=== PATIENT | female | born 1945 | race Caucasian/White ===

== ENCOUNTER 2021-08-04 10:09 | Inpatient (IN) | payer MEDICARE, MEDICAID ==
[2021-08-04] MEDS ORDERED: Calcium Carbonate 500 MG Tab.Chew PO PRN (12:53)
[2021-08-04] MEDS ORDERED: Bisacodyl 5 MG Tab PO PRN (12:53)
--- NOTE | 2021-08-04 13:15 | PCM.HP.2 ---
H&P History of Present Illness - General Date of Service: 08/04/21 Admit Problem/Dx: Admission Diagnosis/Problem Admission Diagnosis/Problem Bimalleolar fracture of right ankle Source of Information: Patient, Old Records History Limitations: Reports: Other (Is absent her hearing aid) - History of Present Illness Initial Comments - Free Text/Narative: Pt. was transferred to [facility] via wheel chair van for swingbed admission. Pt. underwent ORIF of R bimalleolar fracture to R ankle. Pt. became lightheaded/near syncopal at home in [place], [place] and fell, injuring her ankle. She was actually seen by this provider when the ambulance transported her to [facility] in [place]. Fracture was stabilized and she was transferred to [facility]. Pt. did have a CT scan of the head during her ER stay which was negative. All labs were within normal limits, but she was found to have a UTI. Initially pt. was started on IV rocephin in ER. She was transitions to Ceftin and then was on post of ancef. She has finished her full course of antibiotics at this time. Pt. is non-weight bearing on the R lower extremity. Scheduled for recheck with [facility] in 2 weeks with PA and 6 weeks with physician. Overall, pt. states that she is feeling well. Denies any fever or chills. No chest pain or shortness of breath. No nausea, vomiting, or diarrhea. She is passing gas. Appetite has been within normal limits. Pain is controlled with oral oxycodone, but she does complain of continued R lower extremity pain, as well as acute on chronic low back pain. Location: Reports: Lower Extremity, Right - Related Data Allergies/Adverse Reactions: Allergies Allergy/AdvReac Type Severity Reaction Status Date / Time No Known Allergies Allergy Verified 08/04/21 12:53 Home Medications: Home Meds Acetaminophen [Tylenol] 650 mg PO Q6HR 08/04/21 [History] Calcium Carb, Citrate/Vit D3 [Calcium + D3 ER Tablet] 1 each PO TID 08/04/21 [History] Calcium Citrate/Vitamin D3 [Calcium Citrate - Vit D Caplet] 1 each PO BID 08/04/21 [History] Cholecalciferol (Vitamin D3) [Vitamin D3] 1,000 unit PO DAILY 08/04/21 [History] Divalproex Sodium [Divalproex Sodium ER] 500 mg PO BEDTIME 08/04/21 [History] Enoxaparin Sodium [Lovenox] 40 mg SQ BEDTIME 08/04/21 [History] Levothyroxine Sodium 137 mcg PO ACBREAKFAST 08/04/21 [History] Multivit with Iron,Minerals [Complete Senior] 1 each PO DAILY 08/04/21 [History] Sennosides/Docusate Sodium [Senna-Docusate Sodium Tablet] 1 each PO DAILY PRN 08/04/21 [History] cloZAPine [Clozaril] 200 mg PO BEDTIME 08/04/21 [History] hydrOXYzine pamoate [Vistaril] 25 mg PO Q6HR PRN 08/04/21 [History] oxyCODONE 5 mg PO Q6HR PRN 08/04/21 [History] H&P Review of Systems - Review of Systems: Review Of Systems: See Below General: Reports: No Symptoms HEENT: Reports: No Symptoms Pulmonary: Reports: No Symptoms Cardiovascular: Reports: No Symptoms Gastrointestinal: Reports: No Symptoms Genitourinary: Reports: No Symptoms Musculoskeletal: Reports: Back Pain, Leg Pain Skin: Reports: No Symptoms Psychiatric: Reports: No Symptoms Neurological: Reports: No Symptoms Hematologic/Lymphatic: Reports: No Symptoms Immunologic: Reports: No Symptoms Exam - Exam Exam: See Below - Exam General: Alert, Oriented HEENT: Conjunctiva Clear, Pupils Equal, Pupils Reactive, PERRLA Lungs: Clear to Auscultation, Normal Respiratory Effort Cardiovascular: Regular Rate, Regular Rhythm GI/Abdominal Exam: Soft, Non-Tender, No Distention, No Mass (Female) Exam: Deferred Rectal (Female) Exam: Deferred Back Exam: Normal Inspection, Full Range of Motion Extremities: Other (Did not visualize incision. Distal CMS intact. No duskiness to toes.) Peripheral Pulses: 4+: Radial (L) Skin: Warm, Dry, Intact Neurological: Cranial Nerves Intact Neuro Extensive - Mental Status: Alert, Oriented x3, Normal Mood/Affect, Normal Cognition, Memory Intact Neuro Extensive - Motor, Sensory, Reflexes: CN II-XII Intact Psychiatric: Alert, Normal Affect, Normal Mood - Problem List (1) Bimalleolar avulsion fracture of right ankle SNOMED Code(s): 809090270, 868769122, [id number] ICD Code: S82.841A - DISPLACED BIMALLEOLAR FRACTURE OF RIGHT LOWER LEG, INIT Status: Acute Current Visit: Yes (2) Schizoaffective disorder SNOMED Code(s): 34884315 ICD Code: F25.9 - SCHIZOAFFECTIVE DISORDER, UNSPECIFIED Status: Acute Current Visit: Yes (3) Stage 3 chronic kidney disease SNOMED Code(s): 431596266 ICD Code: N18.30 - CHRONIC KIDNEY DISEASE, STAGE 3 UNSPECIFIED Status: Acute Current Visit: Yes (4) DVT prophylaxis SNOMED Code(s): 388260509, 039020599 ICD Code: Z29.9 - ENCOUNTER FOR PROPHYLACTIC MEASURES, UNSPECIFIED Status: Acute Current Visit: Yes Problem List Initiated/Reviewed/Updated: Yes Orders Last 24hrs: Active Orders 24 hr Category Date Time Status Patient Status [ADT] Routine ADT 08/04/21 12:54 Ordered Ambulate [RC] PER UNIT ROUTINE Care 08/04/21 12:53 Ordered Bedrest Bathroom Privileges [RC] ASDIRECTED Care 08/04/21 12:53 Ordered Intake and Output [RC] PRN Care 08/04/21 12:53 Ordered Oxygen Therapy [RC] PRN Care 08/04/21 12:54 Ordered Up With Assistance [RC] ASDIRECTED Care 08/04/21 12:53 Ordered Up to Chair [RC] ASDIRECTED Care 08/04/21 12:53 Ordered Vital Signs [RC] PER UNIT ROUTINE Care 08/04/21 12:54 Ordered Consult to Case Management/Product Engineer [CONS] Cons 08/04/21 12:53 Ordered Routine Consult to Spiritual Care [CONS] Routine Cons 08/04/21 12:53 Ordered OT Evaluation and Treatment [CONS] Stat Cons 08/04/21 12:53 Ordered PT Evaluation and Treatment [CONS] Stat Cons 08/04/21 12:53 Ordered Regular Diet [DIET] Diet 08/04/21 Dinner Ordered Calcium Carbonate [Tums] Med 08/04/21 12:53 Ordered 500 mg PO Q2HR PRN Ondansetron [Zofran ODT] Med 08/04/21 12:53 Ordered 4 mg PO Q6H PRN bisacodyL [Dulcolax] Med 08/04/21 12:53 Ordered 5 mg PO DAILY PRN polyethylene glycoL 3350 [MiraLAX] Med 08/04/21 12:53 Ordered 17 gm PO DAILY PRN Resuscitation Status Routine Resus Stat 08/04/21 12:53 Ordered Medication Orders Bisacodyl (Bisacodyl 5 Mg Tab) 5 mg PO DAILY PRN PRN Reason: Constipation Calcium Carbonate/Glycine (Calcium Carbonate 500 Mg Tab.Chew) 500 mg PO Q2HR PRN PRN Reason: Nausea Ondansetron HCl (Ondansetron 4 Mg Tab.Dis) 4 mg PO Q6H PRN PRN Reason: Nausea/Vomiting Assessment/Plan Comment:: Admit swing bed (retirement) code 1. Pivot to bedside commode. Up with walker with assistance. PT/OT to see for strengthening/discharge planning. CBC,CMP,INR tomorrow AM (last labs 08/01). Pt. did have a mild DARLENE during this incident/illness and this will need to me monitored. No NSAIDs. Continue with SQ lovenox for 14 days. Continue olanzapine and Depakote ER for schizoaffective disorder. Continue oxycodone for pain control. - Mortality Measure Prognosis:: Good
[2021-08-04] MEDS ORDERED: hydrOXYzine Pamoate 25 MG Cap PO PRN (14:00)
[2021-08-04] MEDS ORDERED: Ondansetron 4 MG Tab.DIS PO PRN (14:00)
[2021-08-04] MEDS: oxyCODONE 5 MG Tab PO PRN (14:55)
[2021-08-04] MEDS: Acetaminophen 325 MG Tab PO SCH ×2 (15:53→19:47)
[2021-08-04] MEDS ORDERED: Acetaminophen 325 MG Tab PO SCH (16:00)
[2021-08-04] MEDS ORDERED: CALCIUM CARB CITRATE PO SCH (18:00)
[2021-08-04] MEDS ORDERED: VIT D3 PO SCH (18:00)
[2021-08-04] MEDS ORDERED: [UNRECOGNIZED DRUG - OTHER] PO SCH (18:00)
[2021-08-04] MEDS ORDERED: Calcium Carbonate/Vitamin D3 1500 MG-400 Units Tab PO SCH (18:00)
[2021-08-04] MEDS: Calcium Carbonate/Vitamin D3 1500 MG-400 Units Tab PO SCH (19:46)
[2021-08-04] MEDS: Divalproex Sodium 250 MG Tab.ER PO SCH (19:46)
[2021-08-04] MEDS: Enoxaparin 40 MG/0.4 ML Syringe SUBCUT SCH (19:46)
[2021-08-05] MEDS: oxyCODONE 5 MG Tab PO PRN ×2 (02:07→08:34)
[2021-08-05] MEDS ORDERED: Non-Formulary Medication 1 Each (Levothyroxine Sodium [Levothyroxine Sodium] 137 MCG Table PO SCH (07:30)
[2021-08-05] MEDS: Calcium Carbonate/Vitamin D3 1500 MG-400 Units Tab PO SCH ×2 (07:53→19:16)
[2021-08-05] MEDS: Cholecalciferol (Vitamin D3) 25 MCG Tab PO SCH (07:53)
[2021-08-05] MEDS: Multivitamin Tab PO SCH (07:53)
[2021-08-05] MEDS: Levothyroxine 112 MCG Tab PO SCH (07:54)
[2021-08-05] MEDS: Levothyroxine 25 MCG Tab PO SCH (07:54)
[2021-08-05] MEDS: Acetaminophen 325 MG Tab PO SCH (07:54)
[2021-08-05] MEDS: Polyethylene Glycol 3350 Powder 17 GM Packet PO PRN (08:28)
[2021-08-05] MEDS: Magnesium Hydroxide 400 MG/5 ML Susp 30 ML Cup PO PRN (15:11)
[2021-08-05] MEDS ORDERED: Bisacodyl 10 MG Supp RECTAL PRN (15:26)
[2021-08-05] MEDS: Divalproex Sodium 250 MG Tab.ER PO SCH (19:16)
[2021-08-05] MEDS: Enoxaparin 40 MG/0.4 ML Syringe SUBCUT SCH (19:17)
[2021-08-05] MEDS: Acetaminophen/Codeine 300-30 MG Tab PO PRN (19:22)
[2021-08-06] MEDS: Calcium Carbonate/Vitamin D3 1500 MG-400 Units Tab PO SCH ×2 (08:30→19:32)
[2021-08-06] MEDS: Levothyroxine 25 MCG Tab PO SCH (08:30)
[2021-08-06] MEDS: Levothyroxine 112 MCG Tab PO SCH (08:30)
[2021-08-06] MEDS: Cholecalciferol (Vitamin D3) 25 MCG Tab PO SCH (08:31)
[2021-08-06] MEDS: Multivitamin Tab PO SCH (08:31)
[2021-08-06] MEDS: Acetaminophen/Codeine 300-30 MG Tab PO PRN ×2 (13:52→19:32)
[2021-08-06] MEDS: Enoxaparin 40 MG/0.4 ML Syringe SUBCUT SCH (19:32)
[2021-08-06] MEDS: Divalproex Sodium 250 MG Tab.ER PO SCH (19:33)
[2021-08-06] MEDS: Magnesium Hydroxide 400 MG/5 ML Susp 30 ML Cup PO PRN (19:33)
[2021-08-07] MEDS: Acetaminophen/Codeine 300-30 MG Tab PO PRN (02:02)
[2021-08-07] MEDS: Multivitamin Tab PO SCH (07:22)
[2021-08-07] MEDS: Acetaminophen 325 MG Tab PO PRN ×2 (07:22→19:28)
[2021-08-07] MEDS: Cholecalciferol (Vitamin D3) 25 MCG Tab PO SCH (07:23)
[2021-08-07] MEDS: Levothyroxine 25 MCG Tab PO SCH (07:23)
[2021-08-07] MEDS: Calcium Carbonate/Vitamin D3 1500 MG-400 Units Tab PO SCH ×2 (07:23→19:27)
[2021-08-07] MEDS: Levothyroxine 112 MCG Tab PO SCH (07:23)
[2021-08-07] MEDS: Divalproex Sodium 250 MG Tab.ER PO SCH (19:27)
[2021-08-07] MEDS: Enoxaparin 40 MG/0.4 ML Syringe SUBCUT SCH (19:27)
[2021-08-08] MEDS: Levothyroxine 112 MCG Tab PO SCH (07:50)
[2021-08-08] MEDS: Levothyroxine 25 MCG Tab PO SCH (07:51)
[2021-08-08] MEDS: Calcium Carbonate/Vitamin D3 1500 MG-400 Units Tab PO SCH ×2 (07:52→19:43)
[2021-08-08] MEDS: Multivitamin Tab PO SCH (07:53)
[2021-08-08] MEDS: Cholecalciferol (Vitamin D3) 25 MCG Tab PO SCH (07:53)
[2021-08-08] MEDS: Acetaminophen 325 MG Tab PO PRN ×2 (09:20→16:53)
--- OUTSIDE RECORDS SUMMARY | 2021-08-08 16:17 | XMSREPORT ---
:1945 Author Organization [facility] and [facility] s Address [address] [place] [address] Care Team Providers Name Role Phone SARA Calderon Primary Care Provider SARA Calderon Attributed Provider Reason for Visit Reason Comments Ankle Injury Pt presents to ED from [facility] via EMS to have right ankle fracture evaluated by an orthopoedic surgeon. Pt fell at home around 1230 trasferring in [facility]. Pt h as a current UTI and is receiving abx tx, this may have caused the fal l. Numbness Pt also complains of left le g numbness after fall today. Auth/Cert Status Reason Specialty Diagnoses / Procedures Referred By Villa biswas Referred To Contact Encounter Details Date Type Department Care Team Description 07/31/2021 - Hospital Encounter [facility] Department [address] [place] [address] [phone] Closed bimalleolar 08/04/2021 [facility] Dylan Gaspar MD [address] [place] [address] [phone] fracture of right [address] Lorne Welch MD [address] [place] [address] [phone] [place] [address] Zelda Cabrera MD [address] [place] [id number] [phone] healing [phone] Allergies No Known Active Allergiesdocumented as of this encounter (statuses as of 08/04/2021) Medications Medication Sig Dispensed Refills Start End Status Date Date Multiple Take 1 tablet by 0 Act violeta Vitamins-Iron mouth 1 time per (DAILY day. VITAMINS/IRON PO) senna-docusate Take 1 tablet by 0 Active sodium mouth 1 time a (SENOKOT-S;PERICOLA day as needed for CE) 8.6-50 MG constipation tablet Calcium Take 1 tablet by 0 Act violeta Carb-Cholecalcifero mouth 3 times a l (CALCIUM EXTRA D3 day PO) levothyroxine 137 Take 1 tablet 90 tablet 3 02/12/20 Active mcg (137 mcg) by 022 tabletIndications: mouth 1 time per Post-surgical day hypothyroidism cloZAPine Take 2 tablets 180 tablet 1 03/11/20 Acti ve (CLOZARIL) 100 mg (200 mg) by mouth 022 tabletIndications: every night at Schizoaffective bedtime disorder, bipolar type (HCC) divalproex Take 1 tablet 90 tablet 1 03/11/20 Activ e (DEPAKOTE ER) 500 (500 mg) by mouth 21 mg extended release every night at tablet (24 bedtime hr)Indications: Schizoaffective disorder, bipolar type (HCC) vitamin D3, Take 1 tablet 30 tablet 0 08/02/20 Acti ve cholecalciferol, 25 (1,000 Units) by 21 mcg (1000 unit) mouth 1 time per tabletIndications: day Closed bimalleolar fracture of right ankle with routine healing calcium Take 1 tablet by 0 08/02/20 Act violeta citrate-vitamin D mouth 2 times a 21 (CITRACAL + VIT D) day with meals 315 mg-250 unit tabletIndications: Closed bimalleolar fracture of right ankle with routine healing acetaminophen Take 2 tablets 100 tablet 0 08/04/20 Active (TYLENOL) 325 mg (650 mg) by mouth 21 tabletIndications: Every 6 hours Closed bimalleolar fracture of right ankle, initial encounter hydrOXYzine pamoate Take 1 capsule 12 capsule 0 08/04/20 10/0 5/2 Active (VISTARIL) 25 mg (25 mg) by mouth capsuleIndications: every 6 hours as Anxiety needed for anxiety or pain in adjunction with oxycodone enoxaparin Inject 40 mg 0 08/02/20 Active (LOVENOX) 40 mg subcutaneously syringe (100 mg/mL) every night at subcutaneous bedtime for 14 injection days solutionIndications : DVT prophylaxis oxyCODONE (OXY-IR) Take 1 tablet (5 12 tablet 0 08/04/2001/04 Active 5 mg tablet mg) by mouth (immediate every 6 hours as release)Indications needed for severe : Closed pain or bimalleolar breakthrough pain fracture of right ankle, initial encounter cloZAPine Take 2 tablets 56 tablet 1 01/13/20 Disco ntinued (CLOZARIL) 100 mg (200 mg) by mouth (entry level software developer tabletIndications: 1 time per day error) Schizoaffective disorder, bipolar type (HCC) oxyCODONE (OXY-IR) Take 1 tablet (5 12 tablet 0 08/04/2007/08 0/2 Discontinued 5 mg tablet mg) by mouth (immediate every 6 hours as release)Indications needed for severe : Closed pain or bimalleolar breakthrough pain fracture of right (for pain rated ankle, initial 4-6) for up to 3 encounter days oxyCODONE (OXY-IR) Take 1 tablet (5 12 tablet 0 08/04/20/3 0/2 Discontinued 5 mg tablet mg) by mouth (immediate every 6 hours as release)Indications needed for severe : Closed pain or bimalleolar breakthrough pain fracture of right (for pain rated ankle, initial 4-6) for up to 3 encounter days oxyCODONE (OXY-IR) Take 1 tablet (5 12 tablet 0 08/04/20/3 0/2 Discontinued 5 mg tablet mg) by mouth (Stop Taking at (immediate every 6 hours as Di jamesrge) release)Indications needed for severe : Closed pain or bimalleolar breakthrough pain fracture of right (for pain rated ankle, initial 4-6) for up to 3 encounter days oxyCODONE (OXY-IR) Take 1 tablet (5 12 tablet 0 08/04/20/3 0/2 Discontinued 5 mg tablet mg) by mouth 21 021 (Reor balwinder) (immediate every 6 hours as release)Indications needed for severe : Closed pain or bimalleolar breakthrough pain fracture of right for up to 3 days ankle, initial encounter Hospital, Clinic, or Ordered Dose Route Frequency Start Date End D ate Status Other Facility Administered Medication denosumab (PROLIA) 60 mg Subcut Every six months 09/20/2020 Active subcutaneous solution 60 mgIndications: Age-related osteoporosis without current pathological fracture documented as of this encounter (statuses as of 08/04/2021) Active Problems Problem Noted Date Acute cystitis without hematuria 07/31/2021 Closed bimalleolar fracture of right ankle with routin e healing 07/31/2021 Bimalleolar fracture of right ankle 07/31/2021 Post-menopausal osteoporosis 03/08/2015 Schizoaffective disorder 11/19/2012 Papillary thyroid carcinoma 09/23/2012 Overview: status post total thyroidectomy on 05/18, [id number]. 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 Hydronephrosis 05/13/2008 Anemia 05/12/2008 Malignant neoplasm of female breast 12/18/2007 Post-surgical hypothyroidism 12/18/2007 Osteoporosis 12/18/2007 Acquired absence of kidney 11/27/2005 Acquired absence of breast and nipple 11/27/2005 Atrial flutter Osteoporosis Acute cystitis documented as of this encounter (statuses as of 08/04/2021) Resolved Problems Problem Noted Date Resolved Date Ileus 03/03/2020 07/31/2021 DARLENE (acute kidney injury) 07/18/2017 07/31/2021 Urinary tract infection 06/14/2017 07/31/2021 Acute encephalopathy 06/14/2017 07/31/2021 Weakness generalized 05/03/2012 07/31/2021 Dysuria 03/15/2011 07/31/2021 Urinary tract infection, site not specified 06/15/2008 07/31/2021 Bipolar disorder 12/18/2007 12/26/2013 Personality disorder 11/27/2005 09/09/2018 Simple goiter 07/31/2021 documented as of this encounter (statuses as of 08/04/2021) Immunizations Name Administration Dates Next Due FLU VACCINE TRIVALENT 09/20/2012 MULTIDOSE(Fluvirin,Afluria) FLU VACCINE HIGH DOSE 65YR+(Fluzone) 01/21/2020, 09/02/2018, 08/10/2015, 09/12/2013, 09/22/2011 INFLUENZA HIGH DOSE (FLUZONE) 65 YEARS 08/04/2021, 7, 10/24/2016 AND UP Influenza Vaccine 08/24/2010 Pfizer COVID-19 Vaccine 07/25/2021 Pneumococcal Conj PCV13 08/10/2015 Pneumococcal Polysaccharide PPSV23 08/24/2010, 05/22/2002 TDAP 09/12/2013 Td(adult)preservative free 02/11/2007, 07/23/1998 Zoster Live(Zostavax) 05/13/2014 documented as of this encounter Social History Tobacco Use Types Packs/Day Years Used Date Never Smoker Smokeless Tobacco: Never Used Alcohol Use Standard Drinks/Week Comments No 0 (1 standard drink = 0.6 oz pure alcoho l) Alcohol Habits Answer Date Recorded How often do you have a drink containing alcohol? Never 08/01/2021 How many drinks containing alcohol do you have on a typical Not asked day when you are drinking? How often do you have six or more drinks on one occasion? No t asked Comment: Not asked Sexually Active Control Partners Comments Not Currently None Male Sex Assigned at Date Recorded Not on file documented as of this encounter Last Filed Vital Signs Vital Sign Reading Time Taken Comments Blood Pressure 150/92 08/04/2021 9:24 AM CDT Pulse 67 08/04/2021 9:24 AM CDT Temperature 36.6 C (97.8 F) 08/04/2021 9:24 AM CDT Respiratory Rate 16 08/04/2021 9:24 AM CDT Oxygen Saturation 97% 08/04/2021 9:24 AM CDT Inhaled Oxygen Concentration - - Weight 77.9 kg (171 lb 11.2 oz) 07/31/2021 10:15 PM CDT Height 175.3 cm (5' 9") 07/31/2021 10:15 PM CDT Body Mass Index 25.36 07/31/2021 10:15 PM CDT documented in this encounter Functional Status Functional Status Response Date of Assessment Is the person deaf or does he/she have serious difficulty Ye s 03/02/2020 hearing? Is this person blind or does he/she have difficulty No 03/02/2020 seeing even when wearing glasses? Do you have difficulty with walking, balance, climbing Yes 08/01/2021 stairs, or had a fall in the last 3 months? Does the patient have difficulty dressing or bathing? Yes 03/02/2020 Because of a physical, mental, or emotional condition; Yes 03/02/2020 does this person have difficulty doing errands alone such as visiting a doctor's office or shopping? Cognitive Status Response Date of Assessment Because of a physical, mental, or emotional condition; Yes 03/02/2020 does this person have serious difficulty concentrating, remembering, or making decisions? documented as of this encounter Discharge Summaries Not on filedocumented in this encounter Discharge Instructions AttachmentsThe following attachments cannot be sent through Care Everywhere. Opioid Medicines, Taking ([place])*Preventing and Treating Constipation after Surgery ([place])documented in this encounter Medications at Time of Discharge Medication Sig Dispensed Refills Start Date End Date acetaminophen (TYLENOL) Take 2 tablets (650 100 tablet 0 325 mg mg) by mouth Every 6 tabletIndications: hours Closed bimalleolar fracture of right ankle, initial encounter hydrOXYzine pamoate Take 1 capsule (25 12 capsule 0 08/04/20 21 08/09/2022 (VISTARIL) 25 mg mg) by mouth every 6 capsuleIndications: hours as needed for Anxiety anxiety or pain in adjunction with oxycodone enoxaparin (LOVENOX) 40 Inject 40 mg 0 08/02/2021 08/16/2021 mg syringe (100 mg/mL) subcutaneously every subcutaneous injection night at bedtime for solutionIndications: 14 days DVT prophylaxis oxyCODONE (OXY-IR) 5 mg Take 1 tablet (5 mg) 12 tablet 0 08/07/2021 tablet (immediate by mouth every 6 release)Indications: hours as needed for Closed bimalleolar severe pain or fracture of right breakthrough pain ankle, initial encounter vitamin D3, Take 1 tablet (1,000 30 tablet 0 08/02/2021 cholecalciferol, 25 mcg Units) by mouth 1 (1000 unit) time per day tabletIndications: Closed bimalleolar fracture of right ankle with routine healing calcium citrate-vitamin Take 1 tablet by 0 2020 D (CITRACAL + VIT D) mouth 2 times a day 315 mg-250 unit with meals tabletIndications: Closed bimalleolar fracture of right ankle with routine healing cloZAPine (CLOZARIL) Take 2 tablets (200 180 tablet 1 202003/16/2022 100 mg mg) by mouth every tabletIndications: night at bedtime Schizoaffective disorder, bipolar type (HCC) divalproex (DEPAKOTE Take 1 tablet (500 90 tablet 1 021 ER) 500 mg extended mg) by mouth every release tablet (24 night at bedtime hr)Indications: Schizoaffective disorder, bipolar type (HCC) levothyroxine 137 mcg Take 1 tablet (137 90 tablet 3 202002/16/2022 tabletIndications: mcg) by mouth 1 time Post-surgical per day hypothyroidism Calcium Take 1 tablet by 0 Carb-Cholecalciferol mouth 3 times a day (CALCIUM EXTRA D3 PO) senna-docusate sodium Take 1 tablet by 0 (SENOKOT-S;PERICOLACE) mouth 1 time a day as 8.6-50 MG tablet needed for constipation Multiple Vitamins-Iron Take 1 tablet by 0 (DAILY VITAMINS/IRON mouth 1 time per day. PO) documented as of this encounter Progress Notes Shantal Gomez, SHOSHANA-HAND LEATHER TRIMMER - 08/03/2021 4:56 PM CDT Images from the original note were not included. DAILY PROGRESS NOTE Kathy Castanon is a 75yr old female admitted on 07/31/2021 5:28 PM. Impression / Plan Closed bimalleolar fracture of right anklestatus post mechanical fall Underlying osteoporosis-on outpatient Prolia therapy -X-ray at outlying facility showed an unstablebimalleolarankle fracture -management per Orthopedic surgery- Underwent open reduction internal fixation right ankle 08/02/[address] Jairo Jackson - cleared for dsg from Ortho- Plan for Follow up: 2 weeks with JAMES and [address] Jackson -Pain management-continue Tylenoloroxycodone as needed, Vistaril 25 mg added for anxiety and adjunct for pain mgmt -Bowel regimenin place - PT/OT consult - Recommend TCU for ongoing therapy UTI- -[facility] for leukocytes and bacteria, received phone call today that the culture is showing gram-positive cocci susceptibilities pending -received IV Rocephin 2 g x 1 dose 08/01 at the outlying facility, transitioned to Ceftin 250 twicedaily x2 doses, post op receiving IV ancef - complete 3 days of antibiotics then Dc Back pain with leg weakness-Unclear if this attributed to her fall - request PT/OT evaluation post op Schizoaffective disorder (HCC)-continue olanzapine and Depakote ER as per home routine CKD stage III-creatinine 1.26, avoid NSAIDs, continue IV fluid hydration while n.p.o. Pacemaker in situ-Due to hx complete heart block History of breast cancer History of thyroid cancer-status post total thyroidectomy on 05/18/2012 -On levothyroxine DVT prophylaxis-per ortho surgery recommendation Lovenox [id number] days post op CODE STATUS-full code Plan: discharge cancelled for today due to outside facility not able to accept, anticipate dsg in am Interval History The history is provided by the patient and medical records. Ankle Injury Numbness Pertinent negatives include no chest pain and no shortness of breath. patient is up in chair, surgical pain adequately controlled although she is feeling very anxious Review of Systems Review of Systems Constitutional: Negative for fever. HENT: Negative. Respiratory: Negative for shortness of breath. Cardiovascular: Negative for chest pain. Gastrointestinal: Negative. Genitourinary: Negative. Musculoskeletal: Positive for gait problem (FX right ankle/ SP surgical repair ). Skin: Negative. Neurological: Negative for dizziness. Psychiatric/Behavioral: The patient is nervous/anxious. Physical Exam Vital Signs: Temp: 97.2 F (36.2 C) | BP: 118/72 | Pulse: 70 | Resp: 17 | Pain Ratin (out of 10) | Weight: 77.9 kg (171 lb 11.2 oz) | O2 Device: Room Air O2 Flow Rate (L/min): 2 l/min | SpO2: 98 % Maximum Temperatures (last 24 hours) Temperature Maximum Max Temp 98 F (36.7 C) Intake and Output: 08/02 0700 - 08/03 659 In: 1868 [Oral:300] Out: 1300 [Urine:1300] Physical Exam Vitals and nursing note reviewed. Constitutional: General: She is not in acute distress. Cardiovascular: Rate and Rhythm: Normal rate and regular rhythm. Pulmonary: Effort: Pulmonary effort is normal. No respiratory distress. Breath sounds: Normal breath sounds. No wheezing or rales. Abdominal: Palpations: Abdomen is soft. Musculoskeletal: General: Tenderness (right ankle, splinted surgical site ) present. Skin: General: Skin is warm. Neurological: Mental Status: She is oriented to person, place, and time. Mental status is at baseline. Psychiatric: Mood and Affect: Mood is anxious. Labs Labs (Last day) 08/03/21736 - 08/03/21736 CBC 08/03/21736 CBC Hemoglobin 11.5-15.8 (g/dL) 12.5 08/03/21736 - 08/03/21736 CHEMISTRY 08/03/21736 CHEMISTRY Glucose 70-99 (mg/dL) 99 Sodium 136-145 (meq/L) 141 Potassium 3.5-5.1 (meq/L) 4.3 Chloride 98-109 (meq/L) 108 CO2 20-29 (meq/L) 23 Anion Gap with K 6-20 (meq/L) 14 BUN 6-22 (mg/dL) 21 Creatinine 0.60-1.10 (mg/dL) 1.26 BUN/Creatinine Ratio 10.0-25.0 16.7 Calcium 8.5-10.5 (mg/dL) 8.7 eGFR >=60 (mL/min/1.73m2) 50 eGFR Non- >=60 (mL/min/1.73m2) 41 08/03/21736 - 08/03/21736 OTHER 08/03/21736 OTHER Age (Years) 75 Medical Decision making MDM Reviewed: previous chart, nursing note and vitals Reviewed previous: labs Stan Osuna PA - 08/03/2021 1:01 PM CDT ORTHOPAEDIC POST-OPERATIVE PROGRESS NOTE 08/03/2021 POD # 1 Right ankle fracture ORIF Patient of Dr. Jackson S: Kathy Castanon is a 75yr female. Patient currently reports of 8/10 pain, states that she feels anxious. PT/OT recommending low intensity rehab. Denies any irration from the splint. Currently denies chest pain, shortness of breath, nausea, vomiting and abdominal pain. Denies numbness, tingling and calf pain. Tolerating diet. Reports that she is urinating without difficulty, passing flatulence. Denies BM. O: Temp Readings from Last 1 Encounters: 08/03/21 97.8 F (36.6 C) BP Readings from Last 1 Encounters: 08/03/21 164/107 Pulse Readings from Last 1 Encounters: 08/03/21 126 Gen: Appears comfortable sitting in the chair with legs elevated. No acute distress. Alert and oriented. Incision: No strikethrough drainage. Dressing C/D/I. right ANKLE: In short leg splint. Sensation is grossly intact to light touch over the SPN, DPN and sural nerve distribution of the toes. Motor is grossly intact, able to wiggle toes. Cap refill is brisk. Extremity is warm and well perfused. Lab Results Component Value Date WBC 8.6 08/01/2021 NUCRBC 0 08/01/2021 RBC 4.39 08/01/2021 HEMOGLOBIN 12.5 08/03/2021 HEMATOCRIT 39.4 08/01/2021 MCV 89.7 08/01/2021 MCH 30.5 08/01/2021 MCHC 34.0 08/01/2021 RDW 14.5 01/19/2014 PLTCOUNT 170 08/01/2021 NEUTROPCT 67.4 08/01/2021 BANDPCT 4.0 06/14/2017 LYMPHSPCT 19.0 08/01/2021 MONOSPCT 12.4 08/01/2021 EOSPCT 0.1 08/01/2021 BASOPHILPCT 0.1 08/01/2021 Lab Results Component Value Date INR 1.2 (L) 04/15/2013 A/P: 1. s/p right ankle fracture ORIF: DVT prophylaxis: Lovenox x 14 days post-op Pain control: Added 50mg vistaril every 6 hours for anxiety/pain. Oxycodone 5mg for pain 4-6, 10mg for pain 7 or greater Wound care: Keep splint clean, dry and intact PT/OT: continue; NWB RLE Activity: as tolerated; Disposition/planning: continue cares; Per Ortho, clear for discharge to appropriate setting when available and medically stable. Follow up: 2 weeks with JAMES and [address] Manuel Osuna Pa-C Shantal Schultz APRN-HAND LEATHER TRIMMER - 08/02/2021 3:21 PM CDT DAILY PROGRESS NOTE Kathy Castanon is a 75yr old female admitted on 07/31/2021 5:28 PM. Impression / Plan Closed bimalleolar fracture of right ankle status post mechanical fall Underlying osteoporosis-on outpatient Prolia therapy -X-ray at [facility] showed an unstable bimalleolar ankle fracture -management per Orthopedic surgery- Underwent open reduction internal fixation right ankle 08/02/[address] Jairo Jackson -Pain management-continue Tylenol or oxycodone as needed -Bowel regimen in place - PT/OT consult UTI- -UA obtained at outside facility ([facility]) which was positive for leukocytes and bacteria, received phone call today that the culture is showing gram-positive cocci susceptibilities pending - received IV Rocephin 2 g x 1 dose 08/01 at the [facility] facility, transitioned to Ceftin 250 twice daily x2 doses, post op receiving IV ancef - complete 3 days of antibiotics then Dc Back pain with leg weakness- Unclear if this attributed to her fall - request PT/OT evaluation post op Schizoaffective disorder (HCC)-continue olanzapine and Depakote ER as per home routine CKD stage III-creatinine 1.26, avoid NSAIDs, continue IV fluid hydration while n.p.o. Pacemaker in situ- Due to hx complete heart block History of breast cancer History of thyroid cancer- status post total thyroidectomy on 05/18/2012 -On levothyroxine DVT prophylaxis-Lovenox subcu CODE STATUS-full code Plan: anticipate dsg in am if pain adequately controlled, - will need TCU to continue therapy, plan to dsg to [facility] Interval History The history is provided by the patient and medical records. Ankle Injury Numbness Pertinent negatives include no chest pain and no shortness of breath. Interval hx- Alert and talkative, she was seen post surgery, She is having significant surgical pain, Review of Systems Review of Systems Constitutional: Negative for fever. HENT: Negative. Respiratory: Negative for shortness of breath. Cardiovascular: Negative for chest pain. Gastrointestinal: Negative. Genitourinary: Negative. Musculoskeletal: Positive for back pain (reporting back pain and intermittent left leg weakness ) and gait problem (FX right ankle/ SP surgical repair ). Skin: Negative. Neurological: Negative for dizziness. Psychiatric/Behavioral: Negative. Physical Exam Vital Signs: Temp: 97.2 F (36.2 C) | BP: 133/92 | Pulse: 71 | Resp: 18 | Pain Ratin (out of 10) | Weight: 77.9 kg (171 lb 11.2 oz) | O2 Device: Room Air O2 Flow Rate (L/min): 2 l/min | SpO2: 96 % Maximum Temperatures (last 24 hours) Temperature Maximum Max Temp 98 F (36.7 C) Intake and Output: 08/01 0700 - 08/02 0659 In: 2027 Out: 600 [Urine:600] Physical Exam Vitals and nursing note reviewed. Constitutional: General: She is not in acute distress. Cardiovascular: Rate and Rhythm: Normal rate and regular rhythm. Pulmonary: Effort: Pulmonary effort is normal. No respiratory distress. Breath sounds: Normal breath sounds. No wheezing or rales. Abdominal: Palpations: Abdomen is soft. Musculoskeletal: General: Tenderness (right ankle, splinted surgical site ) present. Skin: General: Skin is warm. Neurological: Mental Status: She is oriented to person, place, and time. Mental status is at baseline. Psychiatric: Mood and Affect: Mood normal. Labs Labs (Last day) No results found within the past day. Medical Decision making MDM Reviewed: previous chart, nursing note and vitals Reviewed previous: labs Jairo France MD - 08/02/2021 6:53 AM CDT Ortho PreOp Note Subjective: Right ankle pain,ok in splint with meds. Objective: BP 134/85 Pulse 76 Temp 98 F (36.7 C) Resp 16 Ht 1.753 m (5' 9") Wt 77.9 kg (171 lb 11.2 oz) SpO2 96% BMI 25.36 kg/m2|| Alert and oriented Breathing nonlabored Neck nontender, painless ROM BUE and LLE: Nontender to palpation. Painless ROM. Skin intact. CMS grossly intact. No evidence of trauma. RLE: Hip and knee nontender to palpation. Leg/ankle in splint. Moves toes ok. Good refill in toes. Sensation intact to LT plantar and dorsal. Imaging: Right bimalleolar fracture Assess: Right ankle fx, unstable Recommend: ORIF right ankle Informed consent was obtained from Kathy after discussion of the problem, the treatment alternatives and recommended plan. I reviewed the operative plan as described above and goals, risks, benefits and post-op rehab plan. Risks include but not limited to: Bleeding, possibility of transfusion, infection, injury to other structures, DVT/PE, non/malunion, HW problems, stiffness, pain, failure of procedure, reoperation. Questions were answered and I marked the operative site. Jairo Jackson MD [facility] Shantal Schultz APRN-HAND LEATHER TRIMMER - 08/01/2021 12:02 PM CDT Images from the original note were not included. DAILY PROGRESS NOTE Kathy Castanon is a 75yr old female admitted on 07/31/2021 5:28 PM. Impression / Plan Closed bimalleolar fracture of right ankle status post mechanical fall Underlying osteoporosis-on outpatient Prolia therapy -X-ray at outlying facility showed an unstable bimalleolar ankle fracture -Orthopedic surgery consult-Short leg splint applied, anticipate surgical fixation today -Pain management-received IV Dilaudid x1 dose , continue Tylenol or oxycodone as needed -Bowel regimen in place -NPO in anticipation of surgery today Pre op clearance- Surgical risk- low ECHO 03/08/20- EF 55%, moderately dilated left atrium, pulmonary artery pressure 31mmHG, mild to moderate tricuspid regurg, Hx of complete HB with pacemaker insitu. EKG- vent paced rhythm, No previous infarct. Revised cardiac risk index 0 pts-3.9% risk of cardiac event with surgery UTI- -UA obtained at outsid facility ([facility]) which was positive for leukocytes and bacteria, received phone call today that the culture is showing gram- positive cocci susceptibilities pending - received IV Rocephin 2 g x 1 dose at the [facility] facility, transition to p.o. Ceftin 250 twice daily Back pain with leg weakness- Unclear if this attributed to her fall - request PT/OT evaluation post op Schizoaffective disorder (HCC)-continue olanzapine and Depakote ER as per home routine CKD stage III-creatinine 1.26, avoid NSAIDs, continue IV fluid hydration while n.p.o. Pacemaker in situ- Due to hx complete heart block History of breast cancer History of thyroid cancer- status post total thyroidectomy on 05/18/2012 -On levothyroxine DVT prophylaxis-Lovenox subcu CODE STATUS-full code Interval History The history is provided by the patient and medical records. Ankle Injury Numbness Pertinent negatives include no chest pain and no shortness of breath. Kathy Castanon is a 75-year-old female who had a mechanical fall at home where she lives with her daughter and presented to an [facility] facility with a right bimalleolar ankle fracture. she hashistory of breast cancer and thyroid cancer status post total thyroidectomy on 05/18/2012, [id number].Osteoporosis on Prolia injections, schizoaffective disorder, CKD stage III. At outside facility wasnoted to have UTI with positive UA culture is pending. She was given IV Rocephin 2 g x 1 Ortho surgery consulted. Anticipate surgery today Interval hx- Received a call from outside facility with report of Urine culture- Gram +cocci, Patient is alert, right ankle sore but pain adequately controlled, she denies SOB or CP Review of Systems Review of Systems Constitutional: Negative for fever. HENT: Negative. Respiratory: Negative for shortness of breath. Cardiovascular: Negative for chest pain. Gastrointestinal: Negative. Genitourinary: Negative. Musculoskeletal: Positive for back pain (reporting back pain and intermittent left leg weakness ) and gait problem (painful right ankle, splint intact ). Skin: Negative. Neurological: Negative for dizziness. Psychiatric/Behavioral: Negative. Physical Exam Vital Signs: Temp: 97.7 F (36.5 C) | BP: 150/85 | Pulse: 76 | Resp: 16 | Pain Ratin (out of 10) | Weight: 77.9 kg (171 lb 11.2 oz) | O2 Device: Room Air | SpO2: 98 % Maximum Temperatures (last 24 hours) Temperature Maximum Max Temp 97.7 F (36.5 C) Intake and Output: No intake/output data recorded. Physical Exam Vitals and nursing note reviewed. Constitutional: General: She is not in acute distress. Cardiovascular: Rate and Rhythm: Normal rate and regular rhythm. Pulmonary: Effort: Pulmonary effort is normal. No respiratory distress. Breath sounds: Normal breath sounds. No wheezing or rales. Abdominal: Palpations: Abdomen is soft. Musculoskeletal: General: Tenderness (right ankle, lower leg splint intact ) present. Skin: General: Skin is warm. Neurological: Mental Status: She is oriented to person, place, and time. Mental status is at baseline. Psychiatric: Mood and Affect: Mood normal. Labs Labs (Last day) 08/01/21 06 - 08/01/21648 CBC 08/01/21648 CBC WBC 4.0-11.0 (K/uL) 8.6 RBC 3.80-5.30 (M/uL) 4.39 Hemoglobin 11.5-15.8 (g/dL) 13.4 Hematocrit 35.0-45.0 (%) 39.4 MCV 80.0-98.0 (fL) 89.7 MCH 25.5-34.0 (pg) 30.5 MCHC 31.5-36.5 (g/dL) 34.0 RDW-CV 11.5-15.5 (%) 13.3 RDW-SD 35.5-50.0 (fl) 43.7 Platelet Count 140-400 (K/uL) 170 MPV 8.5-12.0 (fL) 10.7 08/01/21 0649 - 07/31/212251 CHEMISTRY 08/01/2164807/31/212251 CHEMISTRY Glucose 70-100 (mg/dL) 96 Sodium 135-145 (meq/L) 142 Potassium 3.5-5.3 (meq/L) 5.1 Chloride 99-110 (meq/L) 109 CO2 20-29 (meq/L) 25 Anion Gap with K 6-20 (meq/L) 13 BUN 6-22 (mg/dL) 28 Creatinine 0.60-1.10 (mg/dL) 1.26 1.35 BUN/Creatinine Ratio 10.0-25.0 22.2 Calcium 8.5-10.5 (mg/dL) 9.5 Corrected Calcium 8.5-10.5 (mg/dL) 9.9 Phosphorus 2.5-4.5 (mg/dL) 4.2 Albumin 3.5-5.0 (g/dL) 3.5 eGFR >=60 (mL/min/1.73m2) 50 46 eGFR Non- >=60 (mL/min/1.73m2) 41 38 08/01/21 0649 - 08/01/21 0649 DIFFERENTIAL 08/01/21 0649 DIFFERENTIAL Seg Neut Absolute 1.8-8.0 (K/uL) 5.8 Lymphocytes Absolute 0.8-4.1 (K/uL) 1.6 Monocytes Absolute 0.0-1.0 (K/uL) 1.1 Eosinophils Absolute 0.0-0.7 (K/uL) 0.0 Basophil Absolute 0.0-0.2 (K/uL) 0.0 Immature Granulocyte Absolute 0.00-0.06 (K/uL) 0.09 Neutrophils Percent (%) 67.4 Neutrophils Abs. (Segs and Bands) (/uL) 5,800 Lymphocytes Percent (%) 19.0 Monocytes Percent (%) 12.4 Immature Granulocyte Percent (%) 1.0 Eosinophils Percent (%) 0.1 Basophil Percent (%) 0.1 Nucleated RBC (/100 WBC's) 0 07/31/21 1742 - 07/31/21 1742 ECG/EKG 07/31/21 1742 ECG/EKG EKG WAVEFORM Ventricular-paced rhythm with premature ventricular or aberrantly conducted complexes Abnormal ECG When compared with ECG of 05-JAN-2021 09:19, Vent. rate has decreased BY 17 BPM Ventricular Rate: 72 BPM Atrial Rate: 333 BPM QRS Duration: 154 ms Q-T Interval: 488 ms QTc Calculation(Bazett): 534 ms Calculated R [place]: 126 degrees Calculated T [place]: -35 degrees 08/01/21 0649 - 07/31/21 2252 OTHER 08/01/21 0649 07/31/21 225 OTHER Age (Years) [age] Medical Decision making MDM Reviewed: previous chart, nursing note and vitals Reviewed previous: labs and x-ray documented in this encounter H&P Notes Lorne Welch MD - 07/31/2021 9:42 PM CDT [facility] History and Physical Patient Name: Kathy Castanon Today's Date: 07/31/2021 CSN: [id number] Impression / Plan 1. Right closed bimalleolar ankle fracture status post mechanical fall --Orthopedics consulted, likely to the OR in the morning, they said to make n.p.o. after midnight. I will try changing to fentanyl as it appears she has gotten that before and she claims she has not had nausea so hopefully that will help. 2. Preoperative evaluation --Generally, she does all her own housework and probably gets to around 4 metabolic equivalents of functional capacity without symptoms. She needs urgent surgery and nothing to suggest she cannot do that. EKG not helpful due to pacemaker but no known coronary artery disease as discussed below. No other major risk factors. She would be considered low risk for moderate risk procedure and can proceed given urgency of procedure. 3. Uncomplicated urinary tract infection (cystitis without hematuria) --Received a large dose of ceftriaxone, 2 g, for her kidney function and age. Not sure exactly whattime that was but I do not think we need to start oral antibiotics for 24 hours so I did start cefuroxime tomorrow night. Culture and blood cultures are pending at the outside facility. Schizoaffective disorder: Continue clozapine and Depakote Postsurgical hypothyroidism: Continue levothyroxine Chronic kidney disease stage III: Recheck creatinine in the morning. Start IV fluids now because oral intake is not very good due to nausea. Then she will be n.p.o. after midnight. Chronic constipation: She said she is on some sort of "stool softener" 4 times a day at home. I am not really sure what that is. For now, I ordered docusate 200 mg twice a day and maybe we can adjustgoing forward if we figure out exactly what she is on at home. Full code DVT prophylaxis: Lovenox. I did not order until tomorrow night in case orthopedics does not want a dose of that before surgery. Admission status: Inpatient. Already almost 1 midnight, expected least another midnight. HPI 75-year-old female sent from outside emergency room after mechanical fall at home, right bimalleolarankle fracture. She has schizoaffective disorder, bipolar type. I believe lives independently with child or her children. She said she was moving in her room and felt weak and then fell to the ground. Outside ER did head CT which was negative but also did x-ray which showed a bimalleolar fracture. She appears to have chronic kidney disease stage III with a creatinine somewhere around 1.5 baseline. Labs done there were fairly unremarkable other than this. Urinalysis was positive for suspectedurinary tract infection and she was given 2 g of IV ceftriaxone. Blood cultures were drawn per outside notes. She does have chronic pacemaker for tachycardia/bradycardia syndrome. She does have chronic atrial fibrillation and/or flutter but is not on anticoagulation and appears really to not have been for a long period of time. When asked if she has any other cardiac history, she says she has "congestive heart failure". However, I do not really see anything to back that up in her records. She has had several echocardiograms over the last few years and left ventricular ejection fraction is okay, I suppose maybe she has some mild diastolic dysfunction but is not on any diuretics. She has mildmitral regurgitation. She did have stress test 2014 that was borderline but cardiology at that timedid not feel that she needed further evaluation, felt it was diaphragmatic attenuation. She does not have known lung disease. She is not diabetic as far she is aware. She takes clozapine and Depakote for her mood issues. She has a history of thyroidectomy for some sort of thyroid cancer and is on levothyroxine replacement. She was given hydromorphone at the outside ER and again here and feels like she is nauseous from that. She said she does not think she has had trouble with other opioids in the past as far as nausea goes. 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 Hydronephrosis Renal failure Hypercalcemia Anemia Other malaise and fatigue Atrial flutter (HCC) Encounter for long-term (current) use of other medications Personal history of other disorders of nervous system and sense organs Acute thromboembolism of deep veins of lower extremity (HCC) Nontoxic uninodular goiter Dizziness and giddiness Papillary thyroid carcinoma (HCC) Schizoaffective disorder (HCC) Post-menopausal osteoporosis Acute cystitis without hematuria Closed bimalleolar fracture of right ankle with routine healing Bimalleolar fracture of right ankle Medications Current Facility-Administered Medications on File Prior to Encounter Medication Dose Route Frequency Provider Last Rate Last Admin denosumab (PROLIA) subcutaneous solution 60 mg 60 mg Subcutaneous Every 6 months Sharon Jain MD 60 mg at 09/20/20 1532 Current Outpatient Medications on File Prior to Encounter Medication Sig Dispense Refill cloZAPine (CLOZARIL) 100 mg tablet Take 2 tablets (200 mg) by mouth every night at bedtime 180 tablet 1 divalproex (DEPAKOTE ER) 500 mg extended release tablet (24 hr) Take 1 tablet (500 mg) by mouth every night at bedtime 90 tablet 1 levothyroxine 137 mcg tablet Take 1 tablet (137 mcg) by mouth 1 time per day 90 tablet 3 cloZAPine (CLOZARIL) 100 mg tablet Take 2 tablets (200 mg) by mouth 1 time per day 56 tablet 1 Calcium Carb-Cholecalciferol (CALCIUM EXTRA D3 PO) Take 1 tablet by mouth 3 times a day senna-docusate sodium (SENOKOT-S;PERICOLACE) 8.6-50 MG tablet Take 1 tablet by mouth 1 time a day as needed for constipation Multiple Vitamins-Iron (DAILY VITAMINS/IRON PO) Take 1 tablet by mouth 1 time per day. 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 Brady MD TONSILLECTOMY Social History Social History Socioeconomic History Marital status: Spouse name: Not on file Number of children: 5 Years of education: 16 Highest education level: Not on file Occupational History Occupation: [employer] Tobacco Use Smoking status: Never Smoker Smokeless tobacco: Never Used Substance and Sexual Activity Alcohol use: No Alcohol/week: 0.0 standard drinks Drug use: No Sexual activity: Not Currently Partners: Male control/protection: None Other Topics Concern Transportation Not Asked Stress in your marriage Not Asked Stress with your relationship Not Asked Stress with your family Not Asked Parenting/Being a parent Not Asked Daycare concerns Not Asked Not enough social support Not Asked Housing problems Not Asked Financial stress Not Asked Safety/danger Not Asked Work/job stress Not Asked Legal stress Not Asked Time conflicts (feeling too busy) Not Asked Academic/school stress Not Asked Language difficulties Not Asked Spiritual concerns Not Asked Insurance problems Not Asked The cost of having to take medication Not Asked The costs of buying food/groceries Not Asked Illness of family member/friend/relative Not Asked of a family member/friend/relative Not Asked Violence in your relationship Not Asked Abuse/neglect Not Asked Community stress Not Asked Cultural barriers Not Asked Ability to do self cares Not Asked Social History Narrative Not on file Social Determinants of Health Financial Resource Strain: Difficulty of Paying Living Expenses: Food Insecurity: Worried About Running Out of Food in the Last Year: Ran Out of Food in the Last Year: Transportation Needs: Lack of Transportation (Medical): Lack of Transportation (Non-Medical): Physical Activity: Days of Exercise per Week: Minutes of Exercise per Session: Stress: Feeling of Stress : Social Connections: Frequency of Communication with Friends and Family: Frequency of Social Gatherings with Friends and Family: Attends Taoist Services: Active Member of Clubs or Organizations: Attends Club or Organization Meetings: Marital Status: Intimate Partner Violence: Fear of Current or Ex-Partner: Emotionally Abused: Physically Abused: Sexually Abused: Family History Family History Problem Relation Age of Onset Heart Attack Father Not otherwise listed - Cancer Father Stroke Father Hypertension Father Diabetes Father Macular Degeneration Father Glaucoma Father Macular Degeneration Sister Amblyopia Neg Hx Blindness Neg Hx Retinal Detachment Neg Hx Strabismus Neg Hx Cataracts Neg Hx ROS A full 12-point review of symptoms was conducted and was negative except for the positives stated inthe HPI. Physical Exam BP 155/92 Pulse 71 Temp 97.7 F (36.5 C) Resp 15 Ht 1.753 m (5' 9") Wt 76.2 kg (168 lb) SpO2 96% BMI 24.81 kg/m2 General: Comfortable, no obvious distress, normal body habitus Eyes: Sclera anicteric, no pallor HENT: Throat clear, no exudates. Neck supple. CV: Regular rhythm, normal rate. No murmurs auscultated Resp: Clear to auscultation bilaterally, no adventitious sounds. No tachypnea or use of accessory muscles. Abdomen: Soft, non tender, non distended, bowel sounds normal. Negative rebound and guarding. No masses noted. Skin: No rashes or other concerning lesions. Normal skin temperature. Extremities: No lower extremity peripheral edema. Musculoskeletal: Appropriate muscle bulk. No joint deformities or effusion/swelling other than right ankle which is in a splint currently. Lymphatic: No cervical lymphadenopathy Neuro: Moves all four extremities. Gait not assessed. No focal motor or sensory deficits on limited exam. No resting or intention tremor. Psych: Alert and orientated x 3. Appropriate affect, good insight. No anxiety or agitation. I have reviewed all labs, and pertinent positives and negatives are discussed in the Assessment and Plan. Medical decision making: I have reviewed some of the patient's past/documentation from their EMR. Ireviewed the outside emergency room lab work, x-ray images and report, CT head report, provider's note. documented in this encounter Consult Notes Vanda Cook MD - 07/31/2021 6:39 PM CDT Orthopedic Consult Note Assessment: Right closed bimalleolar ankle fracture, mildly displaced Godoy B fibular fracture and associated medial malleolar fracture, segmental with mild displacement Plan: # Reapply short leg splint as it is midshin in height per ED physician # NPO at 0000 for possible surgical fixation on 08/02/21 # Ice and elevate for reduction of pain and edema # Ok for OR per medicine team # NWB RLE Consulted by: ED physician Reason for Consultation: ankle fracture HPI: Pt with PMH of schizoaffective disorder, osteopetrosis on prolia, acute cystitis who was at home when she had a fall with immediate pain to right ankle. She was unable to get herself off of the floor and had to wait for family to assist her. She was brought to [facility] and images of ankle wereobtained. She was placed in a short leg splint and transferred to [facility] for definitive care. 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 Brady MD TONSILLECTOMY Home Medications: Current Facility-Administered Medications on File Prior to Encounter Medication Dose Route Frequency Provider Last Rate Last Admin denosumab (PROLIA) subcutaneous solution 60 mg 60 mg Subcutaneous Every 6 months Sharon Jain MD 60 mg at 09/20/20 1532 Current Outpatient Medications on File Prior to Encounter Medication Sig Dispense Refill cloZAPine (CLOZARIL) 100 mg tablet Take 2 tablets (200 mg) by mouth every night at bedtime 180 tablet 1 divalproex (DEPAKOTE ER) 500 mg extended release tablet (24 hr) Take 1 tablet (500 mg) by mouth every night at bedtime 90 tablet 1 levothyroxine 137 mcg tablet Take 1 tablet (137 mcg) by mouth 1 time per day 90 tablet 3 cloZAPine (CLOZARIL) 100 mg tablet Take 2 tablets (200 mg) by mouth 1 time per day 56 tablet 1 Calcium Carb-Cholecalciferol (CALCIUM EXTRA D3 PO) Take 1 tablet by mouth 3 times a day senna-docusate sodium (SENOKOT-S;PERICOLACE) 8.6-50 MG tablet Take 1 tablet by mouth 1 time a day as needed for constipation Multiple Vitamins-Iron (DAILY VITAMINS/IRON PO) Take 1 tablet by mouth 1 time per day. Allergies: No Known Allergies Social History: Social History Socioeconomic History Marital status: Spouse name: Not on file Number of children: 5 Years of education: 16 Highest education level: Not on file Occupational History Occupation: [employer] Tobacco Use Smoking status: Never Smoker Smokeless tobacco: Never Used Substance and Sexual Activity Alcohol use: No Alcohol/week: 0.0 standard drinks Drug use: No Sexual activity: Not Currently Partners: Male control/protection: None Other Topics Concern Transportation Not Asked Stress in your marriage Not Asked Stress with your relationship Not Asked Stress with your family Not Asked Parenting/Being a parent Not Asked Daycare concerns Not Asked Not enough social support Not Asked Housing problems Not Asked Financial stress Not Asked Safety/danger Not Asked Work/job stress Not Asked Legal stress Not Asked Time conflicts (feeling too busy) Not Asked Academic/school stress Not Asked Language difficulties Not Asked Spiritual concerns Not Asked Insurance problems Not Asked The cost of having to take medication Not Asked The costs of buying food/groceries Not Asked Illness of family member/friend/relative Not Asked of a family member/friend/relative Not Asked Violence in your relationship Not Asked Abuse/neglect Not Asked Community stress Not Asked Cultural barriers Not Asked Ability to do self cares Not Asked Social History Narrative Not on file Social Determinants of Health Financial Resource Strain: Difficulty of Paying Living Expenses: Food Insecurity: Worried About Running Out of Food in the Last Year: Ran Out of Food in the Last Year: Transportation Needs: Lack of Transportation (Medical): Lack of Transportation (Non-Medical): Physical Activity: Days of Exercise per Week: Minutes of Exercise per Session: Stress: Feeling of Stress : Social Connections: Frequency of Communication with Friends and Family: Frequency of Social Gatherings with Friends and Family: Attends Taoist Services: Active Member of Clubs or Organizations: Attends Club or Organization Meetings: Marital Status: Intimate Partner Violence: Fear of Current or Ex-Partner: Emotionally Abused: Physically Abused: Sexually Abused: Family History Family History Problem Relation Age of Onset Heart Attack Father Not otherwise listed - Cancer Father Stroke Father Hypertension Father Diabetes Father Macular Degeneration Father Glaucoma Father Macular Degeneration Sister Amblyopia Neg Hx Blindness Neg Hx Retinal Detachment Neg Hx Strabismus Neg Hx Cataracts Neg Hx Review of systems: Gen: no fevers/chills HEENT: no sore throat/flu sxs CV: no chest pain/SOB Resp: no cough/wheezing GI: no abdominal pain/nausea/vomiting : no dysuria/hematuria Neuro: no dizziness/lightheadedness Psych: no personality changes/hallucinations MSK: Pain to right ankle Physical Exam: Vitals: 07/31/21 1742 07/31/21 1743 07/31/21 1745 07/31/21 1800 BP: 141/97 145/91 Pulse: 71 74 73 74 Resp: 16 11 Temp: 97.7 F (36.5 C) SpO2: 96% 96% 95% 95% Weight: 76.2 kg (168 lb) Height: 175.3 cm (69") Gen: Lying in bed, NAD- currently working with nursing staff for sponge bath Resp: Quiet, nonlabored respirations on RA Cards: Reg rate as above Abd: Soft, nontender, nondistended. Psych: Normal affect & mood Neuro: No focal deficits, moves all extremities. Speech is normal. MSK: RLE: Short leg splint in place. 1+ edema to toes and ankle. No obvious breaks or major ecchymotic areas to ankle. No fracture blisters present. Sensation intact to light touch to sural/saphenous/deep peroneal/superficial peroneal/tibial nerves. Able to flex/extend big toe but limited by pain. Unable to plan tarflex/dorsiflex foot 2/[address] Toes are warm, well-perfused. DP/PT pulses palpable. LLE: No breaks in the skin/lacerations. Sensation intact to light touch to sural/saphenous/deep peroneal/superficial peroneal/tibial nerves. Able to flex/extend big toe, plantarflexes/dorsiflexes. Toes are warm, well-perfused. DP/PT pulses palpable. RUE: No breaks in the skin/lacerations. Sensation intact to light touch throughout radial/ulnar/median nerve distributions. Gives thumbs-up, makes OK sign, makes a fist. Fingers are warm, well-perfused. Radial pulse 2+. LUE No breaks in the skin/lacerations. Sensation intact to light touch throughout radial/ulnar/median nerve distributions. Gives thumbs-up, makes OK sign, makes a fist. Fingers are warm, well-perfused. Radial pulse 2+. Labs: WBC- 8.6 H&H- 13.4/39.4 BUN/Cr- Imaging: reviewed Vanda Cook MD Orthopedic Surgery Resident - PGY-1 Associated attestation - Jairo Jackson MD - 08/02/2021 6:53 AM CDT I discussed the patient with the resident and personally interviewed and examined the patient. I agree with the resident's diagnosis and management. Jairo Jackson MD [facility] documented in this encounter ED Notes Dylan Gaspar MD - 07/31/2021 6:08 PM CDTAssociated Order(s): SPLINT APPLICATIONPost-Procedure Diagnose(s): Closed bimalleolar fracture of right ankle, initial encounter Emergency Department Visit DIAGNOSIS/ASSESSMENT: 1. Closed bimalleolar fracture of right ankle, initial encounter 2. Acute cystitis without hematuria 3. Schizoaffective disorder, unspecified type (HCC) ED COURSE/MEDICAL DECISION MAKING: Patient transferred from [facility] facility for evaluation of a known right bimalleolar ankle fracture after a ground-level fall. There was also report of possible UTI. It took a while but we were ultimately able to get all of her lab results sent to us. Urinalysis does show positive nitrites and bacteria. Remainder of her lab studies were relatively benign. I did review the x-rays of her ankle. I replaced the splint that she had on previously as it only extended about detention up the calf. I put a new posterior short leg and stirrup on. Case was discussed with hospitalist for admission and pain control. Also discussed with orthopedic resident as she will require operative intervention as well. She is admitted in currently stable condition. PT ID: Kathy Castanon is a 75yr old female HPI: The history is provided by the patient. No ground support equipment assembler was used. Ankle Injury The incident occurred 6 to 12 hours ago. The incident occurred at home. The injury mechanism was a fall. The pain is present in the right ankle. The pain is at a severity of 9/10. The pain is severe. The pain has been constant since onset. Associated symptoms include inability to bear weight. Pertinent negatives include no numbness. She reports no foreign bodies present. She has tried nothing for thesymptoms. Kathy Castanon is a 75yr female with a PMH of atrial flutter, hydronephrosis, schizoaffective disorder, and bipolar disorder presenting to the ED via EMS from [facility] with complaints of right ankle pain (9/10). Patient had a ground level fall at home after eating lunch at approximately 1230 today. Patient was unable to ambulate after the event and her daughter called [facility]. [facility] with [facility] right ankle fracture. She denies any other injuries from the fall. Patient reports she hit her head during the call and had a CT scan in [place] which was unremarkable. Patient had labs and urine analysis in [place]. She received Rocephin priorto arrival for a UTI. Patient endorses nausea. Denies numbness. She reports a history of CHF. Patient lives at home with her daughter and son-in-law. CHIEF COMPLAINT: Ankle Injury (Pt presents to ED from [place] via EMS to have right ankle fracture evaluated by an orthopoedic surgeon. Pt fell at home around 1230 trasferring in [facility]. Pt has a current UTI and is receiving abx tx, this may have caused the fall. ) and Numbness (Pt also complains of left leg numbness after fall today.) DISPOSITION: Patient Disposition: Patient Admitted and Treated in this Facility Patient will be admitted. Discharge Rx: Current Discharge Medication List Follow Up Information: MEDICATION ADMINISTERED and VITAL SIGNS ED Medication Administration from 07/31/2021 1728 to 07/31/2021 2143 Date/Time Order Dose Route Action Action by 07/31/2021 1842 HYDROmorphone (DILAUDID) injection solution (conc: 0.5 mg/0.5mL) 0.5 mg 0.5 mg IV Given Candi De Los Santos RN 07/31/2021 1833 ondansetron (ZOFRAN) injection solution 4 mg 4 mg IV Given Lesvia An, STUDENT Vitals: 07/31/21 2130 07/31/21 2159 07/31/21 2215 08/01/21 0301 BP: 155/92 158/104 154/88 Pulse: 71 73 80 Resp: 15 18 16 Temp: 97.7 F (36.5 C) 97.6 F (36.4 C) SpO2: 96% 95% Weight: 77.9 kg (171 lb 11.2 oz) Height: 1.753 m (5' 9") REVIEW OF SYSTEMS: Review of Systems Gastrointestinal: Positive for nausea. Musculoskeletal: +right ankle pain Neurological: Negative for numbness. All other systems reviewed and are negative. PHYSICAL EXAM ED Triage Vitals Temp Temp Source Pulse Resp BP SpO2 O2 Flow Rate (L/min) O2 Device 07/31/21 1743 07/31/21 1743 07/31/21 1741 07/31/21 1743 07/31/21 1741 07/31/21 1742 -- 07/31/21 1743 97.7 F (36.5 C) Oral 70 16 141/97 96 % RA Physical Exam Vitals and nursing note reviewed. Constitutional: General: She is not in acute distress. HENT: Head: Normocephalic and atraumatic. Eyes: Conjunctiva/sclera: Conjunctivae normal. Cardiovascular: Rate and Rhythm: Normal rate and regular rhythm. Heart sounds: Normal heart sounds. No murmur heard. Pulmonary: Effort: Pulmonary effort is normal. No respiratory distress. Abdominal: Palpations: Abdomen is soft. Tenderness: There is no abdominal tenderness. Musculoskeletal: Cervical back: Normal range of motion and neck supple. Comments: Right ankle in short leg splint. Extends detention up the calf. Sensation intact. She canwiggle her toes normally. No other significant injuries found. Skin: General: Skin is warm and dry. Coloration: Skin is pale. Neurological: Mental Status: She is alert. Sensory: Sensation is intact. Psychiatric: Behavior: Behavior normal. SPLINT APPLICATION Date/Time: 08/01/2021 4:55 AM Performed by: Dylan Gaspar MD Authorized by: Dylan Gaspar MD Consent: Verbal consent obtained. Location details: right ankle Splint type: posterior short leg and stirrup. Supplies used: Ortho-Glass Post-procedure: The splinted body part was neurovascularly unchanged following the procedure. Patient tolerance: patient tolerated the procedure well with no immediate complications MEDICATIONS & ALLERGIES: No current outpatient medications on file. Patient is allergic to Patient has no known allergies. 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 Brady MD TONSILLECTOMY SOCIAL & FAMILY HISTORY: @HXFAMILY@ Social History Tobacco Use Smoking Status Never Smoker Smokeless Tobacco Never Used MEDICAL DECISION MAKING MDM Number of Diagnoses or Management Options Acute cystitis without hematuria: new and requires workup Closed bimalleolar fracture of right ankle, initial encounter: new and requires workup Amount and/or Complexity of Data Reviewed Clinical lab tests: reviewed Tests in the radiology section of CPT: reviewed Review and summarize past medical records: yes (OSH records reviewed) Independent visualization of images, tracings, or specimens: yes (Ankle xrays reviewed) Patient Progress Patient progress: Jeanie Hogue, acting as a scribe for documentation services for Dylan Gaspar MD. I worked with the ED Scribe to provide the medical documentation for this ED encounter. They scribedin my presence. I have read, amended as needed, and agree with their documentation. Dylan Gaspar MD *This note was created, at least in part, with the use of [employer] Dictation System. Inadvertent typographical errors, due to software recognition problems, may still exist. documented in this encounter Miscellaneous Notes Case Mgmt - Kathi Lee RN - 08/04/2021 8:23 AM CDT CASE MANAGEMENT / SOCIAL SERVICE FINAL TRANSITION PLAN TRANSITION DATE: 08/04/21 TRANSITION TIME: 1000 INTENDED PAYER SOURCE FOR AGENCY: Medicare TRANSITION DESTINATION: [facility] Nurse to Nurse: [phone] Pharmacy - transfer 65 DOES ACCEPTING FACILITY REQUIRE COVID TESTING BEFORE DISCHARGE: N/A TRANSITION TRANSPORTATION: [employer]; [employer] Wheelchair (P: [phone]) - bill to [facility] - Guaranteed through $450 TRANSPORTATION PAYMENT: Billed to Case Management Due to: guarantee transport $450 and Billed to Insurance TRANSITION CHOICES OFFERED: Shelter Facility Swing Bed Transitional Care DOES THE PATIENT HAVE A PRIMARY CARE PHYSICIAN? Yes Bakari Calderon PA-C PATIENT / SUBSTITUTE DECISION MAKER GOAL UPON TRANSITION: First Choice: Swing Bed PATIENT CHOICE EDUCATION: Choice form completed in Case Management note and copy given to patient/family MEDICARE 3 IP MIDNIGHT CRITERIA MET: Yes: 07/31/2021-08/04/2021 RESOURCE(S) PROVIDED: nothing needed at this time DOES PATIENT HAVE CLOTHING TO WEAR AT DISCHARGE? Yes ANTICIPATED MODE OF TRANSPORT TO AND FROM FOLLOW UP APPOINTMENTS: As arranged by accepting facility VERIFIED CORRECT PHARMACY IS ENTERED FOR DISCHARGE: Yes - Pharmacy: [facility] METHOD OF PRESCRIBING MEDICATIONS: Reconcile medications as Patient Transfer ("65 button") TRANSITION ROUNDING COMPLETED WITH THE FOLLOWING: Patient / family Weaving Teacher [employer] OPERATIONS MANAGER / PA Bedside varnish remover RN Discussed in person COMMENTS / PATIENT AND FAMILY RESPONSE TO PLAN: Kathy will discharge to [facility] today. Transportation billed to insurance. If insurance will not cover due to SB admission, transportation is guaranteed by budget. SPECIAL TRANSITION DAY INSTRUCTIONS TO NURSE / MD: MACHINE III COREMAKER: Please fax paperwork to above number NURSING: Please call report at above number before or just as patient leaves MD: Please complete interagency order set, ensure orders for PT/OT, ST (if needed) are included. When doing medication orders, there cannot be any range orders, and indication is needed for all meds. Transfer 65 for med reconciliation. CURRENT READMISSION RISK SCORE / HANDOFF: Predictive Risk Score Risk of Unplanned Readmission: 18.9 Handoff given: N/A SIGNED: Kathi Lee RN are Planning - Heriberto Marcano RN - 08/04/2021 5:08 AM CDT Problem: PHYSICAL COMFORT Goal: CLIENT SATISFACTION: PAIN MANAGEMENT Description: DEFINITION: Extent of positive perception of nursing care to relieve pain. 1=Not at all satisfied, 2=Somewhat satisfied, 3=Moderately satisfied, 4=Very satisfied, 5=Completely satisfied. Outcome: NOC Rating 3 Flowsheets (Taken 08/04/2021 0454) Plan of care reviewed with: Patient Patient specific goal for the day: Pt will report LLE pain Patient specific goal for the stay: Pt will return to baseline Achieve goal for stay: By discharge Patient Progress: Pt AOx4, VSS, afebrile. Pt reports pain in RLE following transfer [facility], medication provided (see MAR). RLE CMS intact. Planning to d/c patient today pending placement openings. Will continue to monitor. Clinical Team - Heriberto Marcano RN - 08/04/2021 12:15 AM CDT Pt resting in bed. VSS, afebrile. Pain reported in RLE, medication provided (see MAR). RLE CMS intact, right leg elevated on pillow. No requests at this time. Will continue to monitor. linical Team - Heriberto Marcano RN - 08/03/2021 8:45 PM CDT Pt moved to bed from [facility], pivoting was a challenge, patient does not feel confident on left leg. VSS, afebrile. Pain reported in RLE, CMS intact, medication provided (see MAR). Waiting for placement to outside facility. Will continue to monitor. are Planning - Jose Ramirez, FABIANA - 08/03/2021 6:07 PM CDT Patient has a shuffling gait. She was able to move to bedside commode and back to bed with assist oftwo. At times she is unable to comprehend instructions provided by nursing staff. Will continue to monitor and assess. ase Mgmt - Kathi Lee RN - 08/03/2021 3:07 PM CDT CASE MANAGEMENT / SOCIAL SERVICE TRANSITION PLAN - Progress Note TRANSITION PLAN: Awaiting Medical Doctor Recommendations for Transition Will Continue to Follow for Support and Progression Towards Final Transition Plan BARRIERS TO TRANSITION: Medical barriers:Ortho recommendations, PT/OT recommndations,pain management COMMENTS / PATIENT AND FAMILY RESPONSE TO PLAN: Chart reviewed and case discussed. Kathy has pending recommendations from ortho and therapy. She is medically stable to discharge. Swing bed states they cannot take patient today due to their current case load. CM leadership involved, will update if patient is able to discharge today versus tomorrow. Kathy lives at home with her daughter and son-in-law. She needs some assistance with Most ADLs andthis is provided by her daughter. She uses a walker at times. Denies any use of service/assistance or DME. Patient has a PCP and manages own medications/finances. Her daughter assists with transportation. [facility] has accepted. [place] PASSR complete. Plan to discharge to [facility] tomorrow morning. [facility] - Swing [facility] is able to accept when medically stable. Interagency orders and transfer 65 for medications. Coordinator Savannah - [phone] Please send Therapy notes through [employer] when signed. Family will need to bring Clozapine to the SB as their pharmacy does not have it. Kathy is aware of this policy as she has been there before and mentioned it during CM assessment. Family will provide transportation at time of discharge CM will continue to follow for transition planning needs. ADMISSION DX: No admission diagnoses are documented for this encounter. PATIENT STATUS: inpatient RELEASE OF INFORMATION: Yes -- verbal for: discharge planning SOURCES OF INFORMATION (See demographics for contact information): Medical Record Patient CURRENT LIVING SITUATION / LEVEL OF ASSISTANCE: Lives with family COMMUNITY SERVICES: None HEALTHCARE DIRECTIVE: Yes-On File and reviewed POWER OF CAKE WRINGER: Healthcare Power of Supervisor Cold Rolling FINANCIAL CONCERNS: No Concerns PRIMARY CARE PHYSICIAN: Yes Bakari Calderon PA-C : No IS PATIENT'S ADMISSION ASSOCIATED WITH TIA, ISCHEMIC, OR HEMORRHAGIC STROKE?: No LANGUAGE / COMMUNICATION BARRIERS: No PATIENT / SUBSTITUTE DECISION MAKER GOAL UPON TRANSITION: First Choice: Shelter Facility Swing Bed Transitional Care ANTICIPATED NEEDS, TRANSITION CHOICES OFFERED: Home Health: Bath Aid, Home Safety Evaluation, Nurse, Occupational Therapy and Physical Therapy Shelter Facility Swing Bed Transitional Care RESOURCE(S) PROVIDED: nothing needed at this time DOES PATIENT HAVE CLOTHING TO WEAR AT DISCHARGE? Yes ANTICIPATED MODE OF TRANSPORT UPON DISCHARGE: [employer] Wheelchair (P:[phone]) Family Car VERIFIED CORRECT PHARMACY IS ENTERED FOR DISCHARGE: Yes - Pharmacy: . Transfer 65 for medications. Dependent on discharge plan. CURRENT READMISSION RISK SCORE Predictive Risk Score Risk of Unplanned Readmission: 20.7 Please refer to readmission risk assessment flowsheet for further details. SIGNED: Kathi Lee RN, MSN Case Management, [facility] Pager: #[phone] Routin Physical Therapy - Heriberto Andersen PT - 08/03/2021 12:32 PM CDT Physical Therapy Acute Inpatient Treatment Note ASSESSMENT/RECOMMENDATIONS Pt is currently requiring assist of 2 for sit<>stands and stand pivot transfers. Would anticipate the need for a low intensity post acute PT setting upon d/c from the hospital. PT will continueto follow. 6-Clicks Basic Mobility Score: 14 Activity Prescription with Nursing: Assist patient to chair 3 times per day for 30 to 60 minutes or for all meals. Use Ax2 Encourage patients to do personal cares when sitting up. Use bathroom or commode rather than bedpan. SUBJECTIVE Pt is in bed and agreeable to PT. OBJECTIVE Bed Mobility: Supine to/from sit with Stand by assist. Transfers: Sit to/from stand and a pivot transfer with Moderate assist of 2 and a front-wheeled walker from an elevated seat height. Pt required multiple attempts to get up into standing. Pt also required assist to maintain NWB to the R L/E and to manage the front-wheeled walker when turning to thechair. Response to Activity: Observation: no change from baseline Other: Pt left sitting up in a chair with a call light in reach and the R L/E elevated. Patient Education: Patient was educated on goals of PT session, daily activity recommendations, and PT assessment today through explanation. They accepted teaching and verbalized understanding. Interdisciplinary Communication: Spoke with interdisciplinary team members regarding patient plan ofcare. PLAN Continue plan of care. Today's Treatment: Gait Trainin minutes Therapeutic Exercise: 0 minutes Therapeutic Activity: 25 minutes TOTAL TIMED CODES: 25 minutes TREATMENT TOTAL TIME: 25 minutes Heriberto Andersen PT, DPT Pager [phone] ccupational Therapy - Mariangel Tripp OTR/Susanne - 08/03/2021 10:37 AM CDT Occupational Therapy Acute Care Evaluation Note Impression/Recommendations Recommend low intensity setting upon medical stability. Patient is presenting with impairments including pain, weakness, decreased activity tolerance, impaired cognition, and is NWB R Le. Patient is demonstrating ability to complete LB dressing in bed requiring totalA and able to roll to L side SBA with bedrail. Declined EOB/OOB activity though participated in Ue AROM exercises and light grooming inbed. Patient will continue to benefit from skilled OT in order to address the above deficits to increase functional independence in ADLs, IADLs, and transfers/mobility. Admitting Diagnosis: ICD-10-CM 1. Closed bimalleolar fracture of right ankle, initial encounter S82.841A SPLINT APPLICATION 2. Acute cystitis without hematuria N30.00 3. Schizoaffective disorder, unspecified type (HCC) F25.9 4. Closed bimalleolar fracture of right ankle with routine healing S82.845G vitamin D3, cholecalciferol, 25 mcg (1000 unit) tablet calcium citrate-vitamin D (CITRACAL + VIT D) 315 mg-250 unit tablet Weight bearing status - non-weight bearing History of Present Illness: Refer to H&P for details Past Medical History: Past Medical History: Diagnosis Date Acute venous embolism and thrombosis of unspecified deep vessels of lower extremity leg Anemia Astigmatism of both eyes Atrial fib/flutter, transient paroxysmal atrial flutter/atrial fibrillation BIPOLAR DISORDER Breast cancer, female (HCC) left breast Cataract, senile both eyes Dizziness Dysuria Encounter for long-term (current) use of other medications Fatigue History of syncope Hydronephrosis of left kidney Hypercalcemia Hypertension Hypothyroidism Myopia OU Osteoporosis 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 Pacemaker Personality disorder (HCC) Presbyopia OU Renal failure Simple goiter Thyroid cancer (HCC) papillary Thyroid nodule right lobe Urinary tract infection Activity Level: Activity as tolerated Precautions: NWB R Le, fall risk, bed/chair alarms Infection Control: Standard Precautions Patient History Social/Home Environment: Patient lives: lives with daughter and son-in-law House: Apartment Steps to enter: Yes- 1 without railing Home Environment: Bed/Bath on main level: Yes Bathroom Setup: tub/shower with curtain Employment: not employed Prior Level of Function (per pt) Independent with: grooming, mobility, dressing, toileting, some meal prep/cleaning/laundry Assistance needed with: bathing (daughter assists), finances, medication management, cleaning, laundry, transportation, groceries Comments: Pt reports has near 24/7 support present at home. Reports son-in-law was recently in hospital and currently receiving HH. Adaptive Equipment Available: 4ww, FWW, extended tub bench, handicapped ht toilet with counter beside, handheld showerhead, long-handled sponge, white goods appliance tech Present for Eval: Patient Objective Activities of Daily Living: Feeding: independent drink from cup Grooming: SBA after setup in bed wash/dry face Upper Extremity Dressing: to be assessed Lower Extremity Dressing: unable to doff/yelitza L gripper sock in bed, began education on how dressing should be done over affected Le 1st to yelitza items and doff over affected Le last - will benefit from ongoing training Bathing: to be assessed Toileting: to be assessed Homemaking: to be assessed Transfers: Bed: standby assistance roll to L with bedrail though kept R Le elevated on pillow and did not fully shift R Le with rolling to L, declined EOB/OOB activity and states plan is for PT to return at 11:30AM for EOB/OOB activity Chair: to be assessed Toilet: to be assessed Tub/Shower: to be assessed Mobility/Ambulation: to be assessed Comments: Declined EOB/OOB activity At end of session: patient resting in bed, alarm activated, bed in lowest position, call light and tray table within reach, education provided on use call light and waiting for assistance prior to transferring , safety precautions in place upon OT departure from room, door to room open and Gripper socks and gait belt donned for all OOB activity. Pain: Pain at rest: 06/14 Pain during activity: 06/14 Location: States recently received pain medication, no visual distress/discomfort noted and pt indicates pain is "high" however feels pain medication will take effect soon. Vitals: Pt on room air without signs of shortness of breath during OT. SpO2 at rest >90 %, SpO2 with activity >90% Upper Extremity Function: Range of Motion: Right:within functional limits Left: within functional limits Strength: Right: limited Left: limited Endurance: limited Coordination: intact for Ue Sensation: intact Edema: No for Ue Dominant Hand: right Comments: U/E exercise performed to promote joint integrity, reduce risk of contracture formation and facilitate enhancement of strength and endurance to further independence with ADLs. Pt tolerated B UE AROM x 10 reps for all available motions/planes. Intermittent rest breaks required due to weakness, fatigue and decreased activity tolerance. Cognition: Orientation: alert. Oriented to: Name, , Year, Place and City Attention: impaired, redirection multiple times which appears likely is baseline Following Directions: intact Safety Awareness: impaired Impulsivity: None with limited observed activity - will continue to monitor Comments: States "I have a mental illness and talk a lot." Pt has schizoaffective disorder per chart. Visual/Perception: WFL Glasses: Yes- declined to wear Neglect: No Field Cut: No Comments: Able to read clock on wall across room. Interdisciplinary Communication: Physical Therapist Education Education/Training provided: Role of OT, plan of care, ADLs, transfers/mobility, safety, AE needs,d/c recommendations, precautions Learners: Patient Readiness: accepting Method of Training: verbal and demonstration Response: Verbalizes understanding and Demonstrates understanding; Will benefit from continued reinforcement: yes Adaptive Equipment Recommendations Adaptive Equipment Recommended: OT will continue to assess AE needs and will update as necessary Plan to obtain adaptive equipment: To further assess. Assessment/Plan Assessment: Patient demonstrates decreased UE strength, decreased physical conditioning, decreased independence with ADL/IADL tasks, decreased independence with functional mobility, decreased safety with meal prep, decreased safety judgement/insight into deficits and decreased functional cognition Patient showing a decrease in ADL/transfer performance and will benefit from continued OT. Plan: Patient to be seen 2-3x/week to work toward goals Treatment plan will consist of Sunday thru Sunday sessions Goals Patient/Family Stated Goal for Session: agreeable to therapy evaluation Goals by Discharge: -Patient will be able to complete LE dressing with modA x 1 and AE prn. -Patient will be able to complete chair, toilet, and bed transfers with Justin x 1 and AE prn while maintaining NWB R Le. -Patient will be able to complete toileting activities modA x 1 and AE prn while maintaining NWB R Le. Treatment Provided See above note Charges Treatment/Minutes: Today's Evaluation/Treatment Evaluation Therapeutic exercise: 8 minutes Total for time-based codes: 8 minutes Total treatment time: 18 minutes Evaluation Complexity PMH/Comorbidities that affect Occupational Performance: See PMHx Occupational Profile/Medical and Therapy History: LOW - Brief history relating to presenting problem Patient Assessment: MODERATE - 3-5 performance deficits relating to physical, cognitive, psychosocial limitations/restrictions Clinical Decision Making: LOW - Low complexity, limited amount of treatment options, no assessment modification, no comorbidities Evaluation Complexity: Low Therapist Alpha Pager Number: [phone] are Planning - Thierry Trevizo RN - 08/03/2021 6:42 AM CDT Problem: PHYSICAL COMFORT Goal: CLIENT SATISFACTION: PAIN MANAGEMENT Description: DEFINITION: Extent of positive perception of nursing care to relieve pain. 1=Not at all satisfied, 2=Somewhat satisfied, 3=Moderately satisfied, 4=Very satisfied, 5=Completely satisfied. Outcome: NOC Rating 3 Flowsheets (Taken 08/03/2021 0638) Plan of care reviewed with: Patient Patient specific goal for the day: Pt will report LLE pain Patient specific goal for the stay: Pt will return to baseline by discharge Achieve goal for stay: By discharge Note: Pt resting in bed. A/Ox4. VSS. Pt reported RLE pain and was given PRN oxy x1. RLE has dressingand splint in place. Pt is able to move toes to RLE, with cap refill less than 3 seconds. RLE elevated with pillow. Preventative mepilex in place. External hays catheter in place. Straight cath'd x1 per standing order, see flowsheets for details. Plan for TCU at discharge. Call light in reach. Will report to oncoming. linical Team - Thierry Trevizo RN - 08/03/2021 4:30 AM CDT Pt straight cath'd per standing orders to straight cath for volume greater than >300ml. Pt tolerated procedure well, see flowsheets for output. Nurse aidbridget King present during procedure. linical Team - Thierry Trevizo RN - 08/02/2021 11:00 PM CDT Pt resting in bed. A/ox4. VSS. Pt reports moderate R leg pain, PRN oxy given. Pt is able to move toes to RLE and toes are warm with cap refill less than 3 seconds. RLE elevated on pillows. Preventativemepilex dressing in place to coccyx. Call light in reach. linical Team - Thierry Trevizo RN - 08/02/2021 7:50 PM CDT Pt daughter Shirlene called and was given an update on patient. hysical Therapy - Heriberto Andersen, PT - 08/02/2021 3:28 PM CDT Physical Therapy Acute Inpatient Initial Evaluation RECOMMENDATIONS Assessment: Activity tolerance limited d/t pain. Post acute PT recs ongoing at this time. PT willf/u as appropriate. 6-Clicks Basic Mobility Score: 14 Diagnosis: ICD-10-CM 1. Closed bimalleolar fracture of right ankle, initial encounter S82.841A SPLINT APPLICATION 2. Acute cystitis without hematuria N30.00 3. Schizoaffective disorder, unspecified type (HCC) F25.9 4. Closed bimalleolar fracture of right ankle with routine healing S82.841D Prescription: Eval and Treat Admit Date: 07/31/2021 Pertinent Medical / Surgical History: Past Medical History: Diagnosis Date Acute venous embolism and thrombosis of unspecified deep vessels of lower extremity leg Anemia Astigmatism of both eyes Atrial fib/flutter, transient paroxysmal atrial flutter/atrial fibrillation BIPOLAR DISORDER Breast cancer, female (HCC) left breast Cataract, senile both eyes Dizziness Dysuria Encounter for long-term (current) use of other medications Fatigue History of syncope Hydronephrosis of left kidney Hypercalcemia Hypertension Hypothyroidism Myopia OU Osteoporosis 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 Brady MD TONSILLECTOMY Current medical status: Pt os POD 0 R ankle ORIF. Activity Orders: Activity as tolerated, Progressive Mobility Bundle, Precautions: NWB R L/E SUBJECTIVE Current Living Situation: Lives w/ son and daughter in an apt w/ 1 step to gain entry. Prior Level of Function: (I) w/ ADL's and mobility. History of falls: Yes Home O2: None. Patient Concerns: Having increased pain. OBJECTIVE Observation: Observation:, in bed, in no acute distress Patient seen at bedside. Vitals: Prior to activity: HR: 67, O2 Sats: 97, BP: 138/85 Cognition: Alert and orientated x4. Responses are delayed and pt frequently provides very simple answers. Pt would frequently make out context/tangential remarks during conversation. Pain: 8/10 at rest 8/10 with activity Posture: Unremarkable. Range of Motion: Bilateral lower extremities WFL (R ankle not tested). Refer to Occupational Therapy report for upper extremity range of motion. Strength: Bilateral lower extremities WFL (R ankle not tested). Refer to Occupational Therapy report for upper extremity strength testing. Sensation: Grossly intact bilaterally. Tone: Normal. Coordination: WNL bilaterally. Transfers: Bed mobility: independent Supine to Sit: independent Sit to Supine: independent Sit to/from Stand: not assessed-unable to attempt secondary to pain. Balance: Sitting Balance: Good. Pt did not tolerate scooting at the edge of the bed secondary to pain. Response to Activity: Observation: no change from baseline At end of session back in bed w/ a call light in reach and R L/E elevated. Education: Patient was educated on role of acute PT, goals of PT session, daily activity recommendations, and PT assessment today through explanation. They accepted teaching and verbalized understanding. Interdisciplinary Communication: Discussed daily activity recommendations with patient's RN and update on current mobility status. Also reported pt's pain level. ASSESSMENT SUMMARY/RECOMMENDATIONS Factors affecting function: Physical Impairments: pain Functional Limitations: transfers, ambulation, self-care management and home management Goals: Patient will transfer from sit to/from stand with min assistance and equipment as needed to progressto safe household mobility. Patient will be able to ambulate 5 feet using FWW with min assistance to progress to safe functionalmobility in the home. Pt will perform a chair transfer w/ SBA. PLAN PT Frequency of therapy recommended: 5x/wk Physical Therapy Services: transfer training gait training device and equipment use and training Evaluation, goals, and plan discussed with patient Today's Treatment Evaluation: Completed Gait: 0 minutes Exercise: 0 minutes Therapeutic Activity: 0 minutes TOTAL TIMED CODES: 30 minutes Heriberto Andersen PT Alpha Pager: [phone] Supplemental Progress Note - Vanda Cook MD - 08/02/2021 2:41 PM CDT Ortho Progress Note Kathy Castanon is a 75yr female here for Day of Surgery, Procedure(s): OPEN REDUCTION INTERNAL FIXATION ANKLE RIGHT. Patient of BP 133/92 | Pulse 71 | Temp 97.2 F (36.2 C) | Resp 18 | Ht 175.3 cm (69") | Wt 77.9 kg (171lb 11.2 oz) | SpO2 96% | BMI 25.36 kg/m Maximum Temperatures (last 24 hours) Temperature Maximum Max Temp 98 F (36.7 C) Lab Results Component Value Date HEMOGLOBIN 13.4 08/01/2021 Patient doing ok, complains of intermittent, mild pain. The patient denies nausea. The wound has No drainage. Splint to RLE c/d/i. Compartments soft and non-tender. Distal NV intact. 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 1=Severely compromised / Total assistance: Performs less than 25% of activity; 2=Substantially compromised / Maximal assistance: Performs 25-49% of activity; 3=Moderately compromised / Moderate assistance: Performs 50-74% of activity; 4=Mildly compromised / Modified independence: Needs assistive device, supervision, minimal contact,or safety is a concern; 5=Not compromised / Complete independence. Outcome: NOC Rating 3 Flowsheets (Taken 08/02/2021 1435) Plan of care reviewed with: Patient Patient Progress: Pt had ORIF right ankle today, 08/02/2021. RLE dressing C/DI, leg elevated on pillows, ice pack in place and leg elevated on pillows with CMS checks intact. NWB to RLE. Hasn't beenout of bed yet. PT/OT consulted. Problem: PHYSICAL COMFORT Goal: CLIENT SATISFACTION: PAIN MANAGEMENT Description: DEFINITION: Extent of positive perception of nursing care to relieve pain. 1=Not at all satisfied, 2=Somewhat satisfied, 3=Moderately satisfied, 4=Very satisfied, 5=Completely satisfied. Outcome: NOC Rating 3 Flowsheets (Taken 08/02/2021 1435) Plan of care reviewed with: Patient Patient Progress: Pt is alert and oriented x 4. Denies any complaints of pain. Prn analgesics on board. Prn analgesics on board. Will continue to monitor. Clinical Team - Kacy Alexander RN - 08/02/2021 11:00 AM CDT Returned from PACU S/P ORIF of right ankle . Settled in bed, call light in reach. Pt drowsy but easily aroused to voice. Denies any complaints of pain at this time. RLE with dressing C/D/I, elevatedon pillows and CMS checks intact. Ice pack in place. Tolerating liquids and IVF infusing per order. VSS, afebrile and denies any chills or sweating. ase Mgmt - Kathi Lee RN - 08/02/2021 10:35 AM CDT CASE MANAGEMENT / SOCIAL SERVICE TRANSITION PLAN - Progress Note TRANSITION PLAN: Awaiting Medical Doctor Recommendations for Transition Will Continue to Follow for Support and Progression Towards Final Transition Plan BARRIERS TO TRANSITION: Medical barriers:Ortho recommendations, PT/OT recommndations, IV abx, IVF COMMENTS / PATIENT AND FAMILY RESPONSE TO PLAN: Chart reviewed and case discussed. Kathy has pending recommendations from ortho and therapy. She is currently on IV abx. Kathy had surgery early this morning. Anticipate Therapy to see and discharge time line can be developed. Kathy lives at home with her daughter and son-in-law. She needs some assistance with Most ADLs andthis is provided by her daughter. She uses a walker at times. Denies any use of service/assistance or DME. Patient has a PCP and manages own medications/finances. Her daughter assists with transportation. Profiled early to [facility] as she was previously there and if she needs SB/SNF placement post hospitalization, she hopes to go there again. [facility] able to accept when medically stable. Coordinator Savannah - [phone] Please send Therapy notes through [employer] when signed. Family will need to bring Clozapine to the SB as their pharmacy does not have it. Kathy is aware of this policy as she has been there before and mentioned it during CM assessment. Family will provide transportation at time of discharge CM will continue to follow for transition planning needs. ADMISSION DX: No admission diagnoses are documented for this encounter. PATIENT STATUS: OP in a Bed DID THE PATIENT RECEIVE OBSERVATION STATUS INFORMATION / EDUCATION? Yes CHAMPION OF SUSTAINABLE DESIGN TO ASSESS IF PATIENT CAN BE UPGRADED TO INPATIENT STATUS: Yes RELEASE OF INFORMATION: Yes -- verbal for: discharge planning SOURCES OF INFORMATION (See demographics for contact information): Medical Record Patient CURRENT LIVING SITUATION / LEVEL OF ASSISTANCE: Lives with family COMMUNITY SERVICES: None HEALTHCARE DIRECTIVE: Yes-On File and reviewed POWER OF CAKE WRINGER: Healthcare Power of Supervisor Cold Rolling FINANCIAL CONCERNS: No Concerns PRIMARY CARE PHYSICIAN: Yes Bakari Calderon PA-C : No IS PATIENT'S ADMISSION ASSOCIATED WITH TIA, ISCHEMIC, OR HEMORRHAGIC STROKE?: No LANGUAGE / COMMUNICATION BARRIERS: No PATIENT / SUBSTITUTE DECISION MAKER GOAL UPON TRANSITION: First Choice: Shelter Facility Swing Bed Transitional Care ANTICIPATED NEEDS, TRANSITION CHOICES OFFERED: Home Health: Bath Aid, Home Safety Evaluation, Nurse, Occupational Therapy and Physical Therapy Shelter Facility Swing Bed Transitional Care RESOURCE(S) PROVIDED: nothing needed at this time DOES PATIENT HAVE CLOTHING TO WEAR AT DISCHARGE? Yes ANTICIPATED MODE OF TRANSPORT UPON DISCHARGE: [facility] Wheelchair (P:[phone]) Family Car VERIFIED CORRECT PHARMACY IS ENTERED FOR DISCHARGE: Yes - Pharmacy: . Dependent on discharge plan. CURRENT READMISSION RISK SCORE Predictive Risk Score Risk of Unplanned Readmission: 20.2 Please refer to readmission risk assessment flowsheet for further details. SIGNED: Kathi Lee RN, MSN Case Management, [facility] Pager: #[phone] Routin Operative Note - Jairo Jackson MD - 08/02/2021 8:54 AM CDT Operative Report Kathy Castanon is a 75yr old female admitted on 07/31/2021 5:28 PM. Attending Physician: Zelda Cabrera MD Patient Type: Inpatient Operative Date: 08/02/2021 Surgeon: Jairo Jackson Surgeon(s) and Role: * Jairo Jackson MD - Primary * Vanda Cook MD - Resident - Assisting Architectural Manager: Client Experience Specialist : Anne Webb RN Scrub Person : Sophy Gibbs CST X-Ray Tech: Alysa Hebert, RT(R) Anesthesia Type: general Anesthesia Staff: Anesthesiologist: José Miguel Franklin MD EXT JS DEVELOPER: Cj Calzada APRN-EXT JS DEVELOPER PreOP Diagnosis: Principal Problem: Closed bimalleolar fracture of right ankle with routine healing Active Problems: Schizoaffective disorder (HCC) Acute cystitis without hematuria Bimalleolar fracture of right ankle Osteoporosis Acute cystitis Right bimalleolar ankle fracture PostOp Diagnosis: Same, fragile bone Operative Procedure: Surgical reduction and internal fixation of right ankle fracture Estimated Blood Loss: 10 mL Description of Procedure: The patient was then brought to the operating room and identified and plan and marked site confirmed. general anesthesia was administered. The patient was transferred to the operating table and positioned supine using bone foam. The right leg was sterilely prepped and draped and stop for safety was performed. I made an incision over the fibular fx laterally and dissected down to the fracture carefully. I cleaned and reduced the fracture and fixed it with a 1/3 tubular plate and screws. I made an anterior medial incision over the ankle and incised down to the medial malleolus protecting the saphenous vein/nerve. I exposed the fracture and cleared entrapped periosteum. I could see a little into the joint and it looked ok. The fracture was comminuted and bone very fragile. I irrigated. I reduced the fracture anatomically and placed 2 partially threaded cancellous screws with compression, one thru a hooked plate that I used to buttress the repair. I fixed the plate proximally. Fluoro confirmed a stable syndesmosis with stress and satisfactory reduction and hardware placement.I irrigated the wounds and closed. i applied sterile dressings and a splint. The patient was awakened and taken to recovery. POst OP plan: NWB RLE x 6 weeks F/u in clinic in 2 weeks lovenox x 2 weeks, then asa until walking. Jairo Jackson MD [facility] My surgical physician sales operations assistant was an integral part of the case and had an essential role in assisting with retraction, placement of hardware, positioning of the limb, patient safety and surgical time. I used fluoroscopy to guide reduction and implant insertion during surgery, and make final assessment of the hardware after completion of the procedure. I interpreted all images. Implants: synthes small frag. Occupational Therapy - Mariangel Tripp OTR/Susanne - 08/02/2021 8:02 AM CDT OT orders received, acknowledged. Chart reviewed. Per chart review, pt having surgery today and currently in OR. Will hold OT today and follow-up tomorrow as pt able/appropriate. ALAN Rodriguez, OTR/L Pager [phone] are Planning - Koffi Garcia RN - 08/02/2021 4:54 AM CDT Problem: PHYSICAL COMFORT Goal: CLIENT SATISFACTION: PAIN MANAGEMENT Description: DEFINITION: Extent of positive perception of nursing care to relieve pain. 1=Not at all satisfied, 2=Somewhat satisfied, 3=Moderately satisfied, 4=Very satisfied, 5=Completely satisfied. Outcome: NOC Rating 3 Flowsheets (Taken 08/02/2021 0451) Initial Score: 3 Target Score: 4 Plan of care reviewed with: Patient Patient specific goal for the day: patient to verbalize adequte pain management Patient specific goal for the stay: Get surgery done and recover well. Achieve goal for stay: By discharge Patient Progress: Patient rates pain 7-8/10 overnight, PRN Fentanyl and Oxycodone utilized for pain management with relief. Plan for ORIF of the right ankle in AM. NPO since 2300. No other complaints at this time. VS WNL. linical Team - Koffi Garcia RN - 08/01/2021 8:30 PM CDT Patient resting in bed. A/Ox4. VSS. IV NS at 75ml/hr infusing. Still reports 8/10 RLE pain, had PRN oxy prior with minimal relief. Dressing CDI, and CMS intact. PRN Fentanyl given and elevated RLE elevated on pillows for additional comfort. Updated on NPO status at midnight for planned surgery in AM, patient is aware. External cath changed and patient voiding well. Call light within reach and using appropriately. are Planning - Valente العراقي RN - 08/01/2021 7:02 PM CDT Problem: PHYSICAL COMFORT Goal: CLIENT SATISFACTION: PAIN MANAGEMENT Description: DEFINITION: Extent of positive perception of nursing care to relieve pain. 1=Not at all satisfied, 2=Somewhat satisfied, 3=Moderately satisfied, 4=Very satisfied, 5=Completely satisfied. Outcome: NOC Rating 3 Flowsheets (Taken 08/01/2021 1900) Initial Score: 3 Plan of care reviewed with: Patient Patient specific goal for the day: patient to verbalize adequte pain management Patient specific goal for the stay: Pain to be relieved with PO medications Patient Progress: Patient was consistently verbalizing pain in right ankle of 8/10. 5 mg of oxycodone was administered once on shift. Patient seems to need some education on pain scale. Will continue to monitor. UESTCmau Craig - Kathi Lee RN - 08/01/2021 10:49 AM CDT CASE MANAGEMENT / SOCIAL SERVICE TRANSITION PLAN - INITIAL ASSESSMENT TRANSITION PLAN: Awaiting Medical Doctor Recommendations for Transition Will Continue to Follow for Support and Progression Towards Final Transition Plan BARRIERS TO TRANSITION: Medical barriers:Ortho recommendations, PT/OT recommndations, IV abx, IVF COMMENTS / PATIENT AND FAMILY RESPONSE TO PLAN: Chart reviewed and case discussed. Kathy has pending recommendations from ortho and therapy. She is currently on IV abx. Met with Kathy in room today, Case management role explained and discharge planning discussed. Kathy lives at home with her daughter and son-in-law. She needs some assistance with Most ADLs and thisis provided by her daughter. She uses a walker at times. Denies any use of service/assistance or DME. Patient drives, has a PCP and manages own medications/finances. Profiled early to [facility] as she was previously there and if she needs SB/SNF placement post hospitalization, she hopes to go there again. Family will provide transportation at time of discharge CM will continue to follow for transition planning needs. ADMISSION DX: No admission diagnoses are documented for this encounter. PATIENT STATUS: OP in a Bed DID THE PATIENT RECEIVE OBSERVATION STATUS INFORMATION / EDUCATION? Yes CHAMPION OF SUSTAINABLE DESIGN TO ASSESS IF PATIENT CAN BE UPGRADED TO INPATIENT STATUS: Yes RELEASE OF INFORMATION: Yes -- verbal for: discharge planning SOURCES OF INFORMATION (See demographics for contact information): Medical Record Patient CURRENT LIVING SITUATION / LEVEL OF ASSISTANCE: Lives with family COMMUNITY SERVICES: None HEALTHCARE DIRECTIVE: Yes-On File and reviewed POWER OF CAKE WRINGER: Healthcare Power of Supervisor Cold Rolling FINANCIAL CONCERNS: No Concerns PRIMARY CARE PHYSICIAN: Yes Bakari Calderon PA-C : No IS PATIENT'S ADMISSION ASSOCIATED WITH TIA, ISCHEMIC, OR HEMORRHAGIC STROKE?: No LANGUAGE / COMMUNICATION BARRIERS: No PATIENT / SUBSTITUTE DECISION MAKER GOAL UPON TRANSITION: First Choice: Shelter Facility Swing Bed Transitional Care ANTICIPATED NEEDS, TRANSITION CHOICES OFFERED: Home Health: Bath Aid, Home Safety Evaluation, Nurse, Occupational Therapy and Physical Therapy Shelter Facility Swing Bed Transitional Care RESOURCE(S) PROVIDED: nothing needed at this time DOES PATIENT HAVE CLOTHING TO WEAR AT DISCHARGE? Yes ANTICIPATED MODE OF TRANSPORT UPON DISCHARGE: [facility] Wheel[facility] (P:[phone]) Family Car VERIFIED CORRECT PHARMACY IS ENTERED FOR DISCHARGE: Yes - Pharmacy: . Dependent on discharge plan. CURRENT READMISSION RISK SCORE Predictive Risk Score Risk of Unplanned Readmission: 16.2 Please refer to readmission risk assessment flowsheet for further details. SIGNED: Kathi Lee RN, MSN Case Management, [facility] Pager: #[phone] Routin Occupational Therapy - Mariangel Tripp OTR/L - 08/01/2021 8:24 AM CDT OT orders received, acknowledged. Chart reviewed. Per chart review, pt may have surgery today therefore will hold OT eval at this time and follow-up 08/02/2021 as pt able/appropriate. ALAN Rodriguez, OTR/L Pager [phone] hysical Therapy - Cesia Hall PT - 08/01/2021 8:10 AM CDT PT consult received, will follow up s/p surgery. Cesia Hall PT, DPT *Please secure chat are Planning - Heriberto Marcano RN - 08/01/2021 4:58 AM CDT Problem: IMPAIRED PHYSICAL MOBILITY Goal: MOBILITY Description: DEFINITION: Ability to move purposefully in own environment independently with or without assistive device. 1=Severely compromised / Total assistance: Performs less than 25% of activity; 2=Substantially compromised / Maximal assistance: Performs 25-49% of activity; 3=Moderately compromised / Moderate assistance: Performs 50-74% of activity; 4=Mildly compromised / Modified independence: Needs assistive device, supervision, minimal contact,or safety is a concern; 5=Not compromised / Complete independence. Flowsheets (Taken 08/01/2021 1609) Initial Score: 2 Target Score: 4 Plan of care reviewed with: Patient Patient specific goal for the day: fix fractured ankle Patient specific goal for the stay: Obtain enough mobility to return home Achieve goal for stay: By discharge Patient Progress: Pt AOx4, VSS, afebrile. Pain reported overnight in right ankle, splint on right lower extremity, has sensation and can wiggle toes. Pain reported in RLE, medication provided (see MAR). Pt NPO at midnight for possible surgical fixation. External catheter on patient, patient has known UTI. Will continue to monitor. Clinical Team - Heriberto Marcano, RN - 07/31/2021 10:30 PM CDT Arrived at 2150 accompanied by ORE CHARGER. Admitted for UTI, right ankle fracture. Currently complains of right ankle pain or denies complaints of chest pain, sob, n/v, numbness or tingling. IV fluid of NS 75ml/hr infusing. Settled in room CDU01 and oriented to call light, bed/tv control. Refer to Patient Admission Education. Admission provider notified of patients arrival. Upon Admission to [facility], skin assessment completed with Daysi Cody RN Upon skin assessment including pressure points findings include: redness/excoriation under right breast with moisture, pressure points WDL, no acute skin concerns Plan/Intervention interdry under right breast, skin care per unit protocol documented in this encounter Plan of Treatment Date Type Specialty Care Team Description 08/09/2021 Clinical Support Cardiovascular Services Visit 08/15/2021 Immunization Family Practice 08/18/2021 Office Visit Orthopedics Kareen Banks, BED PLACEMENT COORDINATOR-HAND LEATHER TRIMMER [address] [place] [address] [phone] 09/14/2021 Office Visit Behavioral Health Abebe Fernandes MD [address] [place] [address] [phone] 09/15/2021 Office Visit Orthopedics Jairo Jackson MD [address] [place] [address] [place] [address] [phone] 09/15/2021 Office Visit Orthopedics Leora Jacksno PA-C [facility] [place] [address] [phone] documented as of this encounter Implants Implanted Type Area Consumer Marketing Manager Device Shelf Model / Identifier Expiration Serial / Date Lot Plate Hook Lcp 3hl 3.5x62mm N Ea1 - [id number] Ortho Other Right: J[employer]J DEPUY / Implanted: Qty: 1 on 08/02/2021 by Jairo Jackson MD at [facility] ANKLE SYNTHES / Screw [place] Slftp 3.5x40mm N 204.840 Ea1 - [id number] Ortho Other Right: J[employer]J DEPUY 204.840 / Implanted: Qty: 1 on 08/02/2021 by Jairo Jackson MD at [facility] ANK[employer] SYNTHES / Screw Cncls Part Thrd 4x45mm N 207.045 Ea1 - [id number] Ortho Ot her Right: J&J DEPUY 207.045 / Implanted: Qty: 1 on 08/02/2021 by Jairo Jackson MD at [facility] ANK[employer] SYNTHES / Screw Cncls Part Thrd 4x45mm N 207.045 Ea1 - [id number] Ortho Ot her Right: J&J DEPUY 207.045 / Implanted: Qty: 1 on 08/02/2021 by Jairo Jackson MD at [facility] ANKLE SYNTHES / Plate 1/3tublr Lcp Colar 6hl69 N 241.361 Ea1 - [id number] Ortho Other Right: J&J DEPUY 241.361 / Implanted: Qty: 1 on 08/02/2021 by Jairo Jackson MD at [facility] ANKLE SYNTHES / Screw Lk T15 Stardr 3.5x18mm N 212.105 Ea1 - [id number] Ortho Ot her Right: J[employer]J DEPUY 212.105 / Implanted: Qty: 1 on 08/02/2021 by Jairo Jackson MD at [facility] ANKLE SYNTHES / Screw Lk T15 Stardr 3.5x18mm N 212.105 Ea1 - [id number] Ortho Ot her Right: J[employer]J DEPUY 212.105 / Implanted: Qty: 1 on 08/02/2021 by Jairo Jackson MD at [facility] ANKLE SYNTHES / Screw [place] Slftp 3.5x18mm N 204.818 Ea1 - [id number] Ortho Other Right: J&J DEPUY 204.818 / Implanted: Qty: 1 on 08/02/2021 by Jairo Jackson MD at [facility] ANKLE SYNTHES / Screw Glen Slftp 3.5x16mm N 204.816 Ea1 - [id number] Ortho Other Right: J&J DEPUY 204.816 / Implanted: Qty: 1 on 08/02/2021 by Jairo Jackson MD at [facility] ANKLE SYNTHES / Screw Glen Slftp 3.5x16mm N 204.816 Ea1 - [id number] Ortho Other Right: J&J DEPUY 204.816 / Implanted: Qty: 1 on 08/02/2021 by Jairo Jackson MD at [facility] ANKLE SYNTHES / Screw Cncls Full Thrd 4x45mm N 206.045 Ea1 - [id number] Ortho Ot her Right: J&J DEPUY 206.045 / Implanted: Qty: 1 on 08/02/2021 by Jairo Jackson MD at [facility] ANKLE SYNTHES / Screw Cncls Full Thrd 4x50mm N 206.050 Ea1 - [id number] Ortho Ot her Right: J&J DEPUY 206.050 / Implanted: Qty: 1 on 08/02/2021 by Jairo Jackson MD at [facility] ANKLE SYNTHES / Medtronic Dual Chamber Pacemaker Pacemaker Right: MEDTRONIC [id number] [id number] XT DR MRI / Implanted: Qty: 1 on 01/05/2021 by Eusebio Campos MD CHEST [id number] / documented as of this encounter Procedures Procedure Name Priority Date/Time Associated Diagnosis Comme nts HEMOGLOBIN Routine 08/03/2021 7:37 Results for this AM CDT procedure are i n the results section. BASIC METABOLIC PANEL Routine 08/03/2021 7:37 Re sults for this AM CDT procedure are i n the results section. XRAY C-ARM Routine 08/02/2021 8:45 Results for this AM CDT procedure are i n the results section. OPEN REDUCTION 08/02/2021 6:37 Ankle fracture INTERNAL FIXATION AM CDT ANKLE LAB ONLY-COMPLETE Routine 08/01/2021 6:49 Result s for this BLOOD COUNT WITH AM CDT procedure a re in DIFFERENTIAL the results section. RENAL FUNCTION PANEL Routine 08/01/2021 6:49 Res ults for this AM CDT procedure are i n the results section. LAB ONLY-COMPLETE Routine 08/01/2021 6:49 Result s for this BLOOD COUNT WITH AM CDT procedure a re in DIFFERENTIAL the results section. SPLINT APPLICATION Routine 08/01/2021 4:55 Closed bimalleolar Results for this AM CDT fracture of right procedure are in ankle, initial the results encounter section. CREATININE Routine 07/31/2021 10:52 Results for this PM CDT procedure are i n the results section. EKG Routine 07/31/2021 5:42 Results for this PM CDT procedure are i n the results section. documented in this encounter Results HEMOGLOBIN (08/03/2021 7:37 AM CDT) Pathologist Sig [facility] Hemoglobin 12.5 11.5 - 15.8 g/dL [address] Specimen Blood - Blood specimen (specimen) Performing Organization Address City/State/ZIP Code Phon e Number [address] [address] BASIC METABOLIC PANEL (08/03/2021 7:37 AM CDT) Pathologist Sig nature Glucose 99 70 - 99 mg/dL [address] BUN 21 6 - 22 mg/dL [address] Creatinine 1.26 (H) 0.60 - 1.[address] mg/dL BUN/Creatinine Ratio 16.7 10.0 - 25.[address] Sodium 141 136 - 145 meq/L [address] Potassium 4.3 3.5 - 5.1 meq/L [address] Chloride 108 98 - 109 meq/L [address] CO2 23 20 - 29 meq/L [address] Anion Gap with K 14 6 - 20 meq/L [address] Calcium 8.7 8.5 - 10.[address] mg/dL Age [address] eGFR Non- 41 (L) >=[address] Colombian mL/min/1.73m2 eGFR 50 (L) >=[address] mL/min/1.73m2 Specimen Blood - Blood specimen (specimen) Performing Organization Address City/[facility]/ZIP Code Phon e Number [address] [place] [id number] XRAY C-ARM greater than one hour (08/02/2021 8:45 AM CDT) Specimen Narrative Performed At This result has an attachment that is no t available. Fluoroscopic image(s) submitted. Imaging assistance provided by [facility] RADIOLOGY Radiology. Performing Organization Address City/[facility] Phon e Number [facility] [address] [place] [address] RADIOLOGY LAB ONLY-COMPLETE BLOOD COUNT WITH DIFFERENTIAL (08/01/2021 6:49 AM CDT) Pathologist Sig nature WBC 8.6 4.0 - 11.0 K/uL [address] RBC 4.39 3.80 - 5.[address] M/uL Hemoglobin 13.4 11.5 - 15.[address] g/dL Hematocrit 39.4 35.0 - 45.0 % [address] MCV 89.7 80.0 - 98.[address] MCH 30.5 25.5 - 34.[address] MCHC 34.0 31.5 - 36.[address] g/dL RDW-CV 13.3 11.5 - 15.5 % [address] RDW-SD 43.7 35.5 - 50.[address] Platelet Count 170 140 - 400 K/uL [address] MPV 10.7 8.5 - 12.[address] Seg Neut Absolute 5.8 1.8 - 8.0 K/uL [address] Lymphocytes Absolute 1.6 0.8 - 4.1 K/uL [place] [address] [facility] Monocytes Absolute 1.1 (H) 0.0 - 1.0 K/uL [address] Eosinophils Absolute 0.0 0.0 - 0.7 K/uL [place] [address] [facility] Basophil Absolute 0.0 0.0 - 0.2 K/uL [address] Immature Granulocyte 0.09 (H) 0.00 - 0.06 [place] [address] [facility] Absolute K/uL Neutrophils Abs. 5,800 /uL [address] (Segs and Bands) Neutrophils Percent 67.4 % [address] Lymphocytes Percent 19.0 % [address] Monocytes Percent 12.4 % [address] Immature Granulocyte 1.0 % [address] Percent Eosinophils Percent 0.1 % [address] Basophil Percent 0.1 % [address] Nucleated RBC 0 /[address] Specimen Blood - Blood specimen (specimen) Performing Organization Address City/State/ZIP Code Phon e Number [address] [place] [address] RENAL FUNCTION PANEL (08/01/2021 6:49 AM CDT) Pathologist [facility] nature Glucose 96 70 - 100 mg/dL [address] BUN 28 (H) 6 - 22 mg/dL [address] Creatinine 1.26 (H) 0.60 - 1.[address] mg/dL BUN/Creatinine Ratio 22.2 10.0 - 25.[address] Sodium 142 135 - 145 meq/L [address] Potassium 5.1 3.5 - 5.3 meq/L [address] Chloride 109 99 - 110 meq/L [place] [address] [facility] CO2 25 20 - 29 meq/L [address] Anion Gap with K 13 6 - 20 meq/L [address] Calcium 9.5 8.5 - 10.5 [place] [address] [facility] mg/dL Phosphorus 4.2 2.5 - 4.5 mg/dL [address] Albumin 3.5 3.5 - 5.0 g/dL [address] Corrected Calcium 9.9 8.5 - 10.[address] mg/dL Age [address] eGFR Non- 41 (L) >=[address] [place] mL/min/1.73m2 eGFR 50 (L) >=[address] mL/min/1.73m2 Specimen Blood - Blood specimen (specimen) Performing Organization Address [facility] e Number [address] [place] [id number] SPLINT APPLICATION (08/01/2021 4:55 AM CDT) Narrative Performed At Dylan Gaspar MD 08/01/2021 4:56 AM SPLINT APPLICATION Date/Time: 08/01/2021 4:55 AM Performed by: Dylan Gaspar MD Authorized by: Dylan Gaspar MD Consent: Verbal consent obtained. Location details: right ankle Splint type: posterior short leg and sti rrup. Supplies used: Ortho-Glass Post-procedure: The splinted body part w as neurovascularly unchanged following the procedure. Patient tolerance: patient tolerated the procedure wel l with no immediate complications CREATININE (07/31/2021 10:52 PM CDT) Pathologist Sig freya Creatinine 1.35 (H) 0.60 - 1.[address] mg/dL Age [address] eGFR Non- 38 (L) >=[address] [place] mL/min/1.73m2 eGFR 46 (L) >=[address] mL/min/1.73m2 Specimen Blood - Blood specimen (specimen) Performing Organization Address [facility] e Number [address] [place] [phone] EKG (07/31/2021 5:42 PM CDT) Pathologist Sig nature EKG [employer] Ventricular-paced rhythm wit h premature ventricular or aberrantly conducted complexes Abnormal ECG Ventricular Rate: 72 BPM Atrial Rate: 333 BPM QRS Duration: 154 ms Q-T Interval: 488 ms QTc Calculation(Bazett): 534 ms Calculated R [place]: 126 degrees Calculated T [place]: -35 degrees Specimen Narrative Performed At This result has an attachment that is no t available. Performing Organization Address City/State/ZIP Code Phon e Number RAJANI FERRARI documented in this encounter Visit Diagnoses Diagnosis Closed bimalleolar fracture of right ank le with routine healing - Primary Closed bimalleolar fracture of right ank le, initial encounter Acute cystitis without hematuria Acute cystitis Schizoaffective disorder, unspecified ty pe (HCC) Anxiety Anxiety state, unspecified DVT prophylaxis Encounter for long-term (current) use of anticoagulants Urinary tract infection Urinary tract infection, site not specif ied Bimalleolar fracture of right ankle Osteoporosis Osteoporosis, unspecified documented in this encounter Discharge Diagnoses Not on filedocumented in this encounter Administered Medications Medication Order MAR Action Action Date Dose Rate Site acetaminophen (TYLENOL) tablet Given 08/04/2021 6:13 AM CDT 650 mg 650 mg 650 mg, Oral, Every six hours, First dose (after last modification) on Sun08/03/21 at 1345, Until Discontinued, PACU - Continue Post-Op, Adult patients: Total dose of acetaminophen from all acetaminophen containing products should not exceed 4 grams (4000 mg) per day. Pediatric Patients 0 - 3 months: Maximum of 60 mg/kg/24 hours of acetaminophen. Pediatric Patients older than 3 months: Maximum of 75 mg/kg/24 hours of acetaminophen (Never exceeding 4 grams/day). Given 08/04/2021 12:12 AM CDT 650 mg Given 08/03/2021 6:18 PM CDT 650 mg calcium carbonate (TUMS) chewable tablet 1,000 mg 1,000 mg, Oral, Every four hours prn, Starting on Sun07/31/21 at 2140, Until Discontinued, other (Specify), acid reflux, Use FIRST for acid reflux. If ineffective after 60 minutes, may proceed to next sarabia ce option or, if no other options, contact provider. cefuroxime (CEFTIN) tablet 250 mg Given 08/04/2021 9:25 AM CDT 250 mg 250 mg, Oral, Two times a day, First dose (after last modification) on Sun08/03/21 at 0800, Until Discontinued, Tablet should not be crushed or chewed. Given 08/03/2021 8:45 PM CDT 250 mg Given 08/03/2021 9:00 AM CDT 250 mg cloZAPine (CLOZARIL) tablet 200 mg Given 08/03/2021 8:45 PM CDT 200 mg 200 mg, Oral, Bedtime, First dose on 07/31/21 at 2300, Until Discontinued Given 08/02/2021 9:06 PM CDT 200 mg Given 08/01/2021 8:27 PM CDT 200 mg divalproex (DEPAKOTE ER) extended release Given 08/03/2021 8:44 PM CDT 500 mg tablet (24 hr) 500 mg 500 mg, Oral, Bedtime, First dose on 07/31/21 at 2300, Until Discontinued, Tablet should be swalloed whole and not divided, crushed or chewed. If unable to administer dose intact, wear universal precautions (one pair of gloves). Given 08/02/2021 9:05 PM CDT 500 mg Given 08/01/2021 8:28 PM CDT 500 mg docusate sodium (COLACE) capsule 200 mg Given 08/04/2021 9:25 AM CDT 200 mg 200 mg, Oral, Two times a day, First dose on 07/31/21 at 2140, Until Discontinued, Swallow cap whole. Should not be crushed or chewed. Given 08/03/2021 8:46 PM CDT 200 mg Given 08/03/2021 9:00 AM CDT 200 mg enoxaparin (LOVENOX) subcutaneous injection Given 08/03/2021 8:44 PM CDT 40 mg solution 40 mg 40 mg, Subcutaneous, Bedtime, First dose on 08/01/21 at 2100, Until Discontinued, To avoid the loss of drug when using the 30 mg and 40 mg prefilled syringes, do not expel the air bubble from the syringe before the injection. For ADULT patients: Administration should be alternated between the left and right anterolateral and left and right posterolateral abdominal wall. The whole length of the needle should be introduced into a skin fold held between the thumb and forefinger; the skin fold should be held throughout the injection. To minimize bruising, do not rub the injection site after completion of the injection. For PEDIATRIC patients: Administration should be alternated between appropriate sites for patient age/weight (infants/small children = upper thigh; older children/adolescents = left and right anterolateral and left and right posterolateral abdominal wall). During administration to infants/smaller children sometimes the whole length of the needle is not "introduced" during the injection. Administer injection into a skin fold held between the thumb and forefinger; the skin fold should be held throughout the injection. To minimize bruising, do not rub the injection site after completion of the injection. Given 08/02/2021 8:24 PM CDT 40 mg fentaNYL 100 mcg/2 mL preservative free Given 08/02/2021 12:09 A M CDT 25 mcg injection solution 25 mcg 25 mcg, IV, Every two hours prn, Starting on Sun07/31/21 at 2140, Until Discontinued, severe pain, 0.5 mL, For pain Scale 7 or greater or pain not relieved by medications for Pain Scale 4-6. Given 08/01/2021 8:26 PM CDT 25 mcg hydrALAZINE (APRESOLINE) injection solut ion 15 mg 15 mg, IV, Every two hours prn, Starting on Sun 1 at 2148, Until Discontinued, Use SECOND for HTN or use FIRST for HTN if HR<65. For SBP>180 or DBP>105., 0.75 mL hydrOXYzine pamoate (VISTARIL) capsule 2 5 mg Given 08/03/2021 2:29 PM CDT 25 mg 25 mg, Oral, Every six hours prn, Starting on Sun08/03/21 at 1307, Until Discontinued, anxiety, other (Specify), pain in adjunction with oxycodone influenza immunization reminder 1 each, Does not apply, Immunization jimi or to discharge, First dose on Sun08/01/21 at 0900, Until Discontinued, This patien t is eligible for the influenza vaccine. Administer the vaccine as soon as possib le. Document consent on the Influenza MAR order. If the patient is in the ICU, ad special programs director the vaccine as soon as patient is eligible for floor transfer. RN to disc ontinue the reminder order AFTER vaccine administration. labetalol (NORMODYNE;TRANDATE) IV soluti on 20 mg 20 mg, IV, Every two hours prn, Starting on Sun 1 at 2148, Until Discontinued, blood pressure, Use FIRST for HTN. For SBP>180 or DBP >105. Hold for HR<65., 20 mL levothyroxine tablet 137 mcg Given 08/04/2021 6:13 AM CDT 137 mcg 137 mcg, Oral, One time a day before breakfast, First dose on Sun08/01/21 at 0600, Until Discontinued Given 08/03/2021 6:58 AM CDT 137 mcg Given 08/02/2021 6:43 AM CDT 137 mcg melatonin tablet 3 mg 3 mg, Oral, Bedtime prn, Starting on Sun07/31/21 at 2140, Until Discontinued, other (Specify), insomnia, Use FIRST for insom aidee. If inadequate response in 60 minutes, may proceed to next choice option or, if no other opti ons, contact provider. nalOXone (NARCAN) injection solution (vi al) 0.2 mg 0.2 mg, Injection, Every two minutes prn , Starting on Sun07/31/21 at 2138, Until Discontinued, other (Specify), opioid induced respirat ory depression - PARTIAL reversal, 0.5 mL, PARTIAL REVERSAL/RESPI RATORY DEPRESSION If respiratory rate less than 8/minute - call rapid response and administer (un til respiratory rate increases to 10/minute). Give IV (preferred), IM or S UBQ nalOXone (NARCAN) injection solution (vi al) 0.4 mg 0.4 mg, Injection, Every two minutes prn , Starting on Sun07/31/21 at 2138, Until Discontinued, other (Specify), opioid in duced respiratory arrest - FULL reversal, 1 mL, FULL REVERSAL/RESPIRATORY ARREST If patient is not breathing - call CODE BLUE and administer. Give IV (preferred), IM or SUBQ oxyCODONE (OXY-IR) tablet 10 mg Given 08/03/2021 8:47 PM CDT 10 mg 10 mg, Oral, Every four hours prn, Starting on Sun08/03/21 at 1309, Until Discontinued, severe pain, for pain rated 7 or greater, Pain stratification is defined as follows for either analog scale (0-10) or critical care pain observation tool (CPOT, 0-8). a. No pain (0) b. Mild pain level (1-3) c. Moderate pain level (4-6) d. Severe pain level (greater than or equal to 7) oxyCODONE (OXY-IR) tablet 5 mg Given 08/03/2021 2:36 PM CDT 5 mg 5 mg, Oral, Every four hours prn, Starting on Sun08/03/21 at 1309, Until Discontinued, moderate pain, for pain rated 4-6, Pain stratification is defined as follows for either analog scale (0-10) or critical care pain observation tool (CPOT, 0-8). a. No pain (0) b. Mild pain level (1-3) c. Moderate pain level (4-6) d. Severe pain level (greater than or equal to 7) polyethylene glycol (MIRALAX) packet 1 Given 08/04/2021 9:25 AM CDT 1 packet packet 1 packet, Oral, Daily, First dose on Sun08/03/21 at 0900, Until Discontinued, Post - Op, Hold if 2 loose stools occur in the last 24 hours. Do NOT give if patient on thickened liquids. Contact provider for alternative if needed. Given 08/03/2021 9:00 AM CDT 1 packet senna-docusate sodium Given 08/04/2021 9:25 AM CDT 1 tablet (SENOKOT-S;PERICOLACE) tablet 1 tablet 1 tablet, Oral, Two times a day, First dose on Sun08/02/21 at 2100, Until Discontinued, Post - Op, Hold if 2 loose stools occur in the last 24 hours. Given 08/03/2021 8:45 PM CDT 1 tablet Given 08/03/2021 9:00 AM CDT 1 tablet sodium chloride 0.9% flush (adult) 10 mL Given 08/04/2021 9:25 AM CDT 10 mL 10 mL, IV, Two times a day and prn, First dose on Sun07/31/21 at 2145, Until Discontinued, 10 mL, Flush PIV line as scheduled and as often as necessary before and after meds. Use a push / pause technique when flushing to create turbulence. Given 08/03/2021 8:51 PM CDT 10 mL Given 08/02/2021 10:42 AM CDT 10 mL Medication Order MAR Action Action Date Dose Rate Site acetaminophen (TYLENOL) tablet Given 08/03/2021 9:00 AM CDT 650 mg 650 mg 650 mg, Oral, Every four hours prn, Starting on Sun08/02/21 at 0907, Until Sun08/03/21 at 1343, mild pain, fever, pain scale 3 or less, PACU - Continue Post-Op, Adult patients: Total dose of acetaminophen from all acetaminophen containing products should not exceed 4 grams (4000 mg) per day. Pediatric Patients 0 - 3 months: Maximum of 60 mg/kg/24 hours of acetaminophen. Pediatric Patients older than 3 months: Maximum of 75 mg/kg/24 hours of acetaminophen (Never exceeding 4 grams/day). Given 08/02/2021 3:58 PM CDT 650 mg ceFAZolin (ANCEF) 2000 mg/20 mL sterile Given 08/03/2021 1:07 A M CDT 2,000 mg water IV syringe 2,000 mg, IV, Every eight hours, 2 doses, First dose on Sun08/02/21 at 1530, Last dose on Sun08/02/21 at 2330, 20 mL, PACU - Continue Post-Op, Administer as IV push over 4 minutes. Given 08/02/2021 3:57 PM CDT 2,000 mg cefuroxime (CEFTIN) tablet 250 mg Given 08/02/2021 10:42 AM CDT 250 mg 250 mg, Oral, Two times a day, First dose on Sun08/01/21 at 2100, Until Discontinued, Tablet should not be crushed or chewed. Given 08/01/2021 8:28 PM CDT 250 mg HYDROmorphone (DILAUDID) injection solution Given 07/07 6:48 PM CDT 0.5 mg (conc: 0.5 mg/0.5mL) 0.5 mg 0.5 mg, IV, Now, 1 dose, On Sun07/31/21 at 1830, 0.5 mL ondansetron (ZOFRAN) injection solution 4 mg Given 07/31/2021 6:33 PM CDT 4 mg 4 mg, IV, Now, 1 dose, On Sun07/31/21 at 1830, 2 mL, If preference is to further dilute for IV administration: First draw up patient-specific dose, then dilute to 10 mL with 0.9% sodium chloride. oxyCODONE (OXY-IR) tablet 5 mg Given 08/02/2021 8:50 PM CDT 5 mg 5 mg, Oral, Every four hours prn, Starting on Sun07/31/21 at 2140, Until Sun08/03/21 at 1309, moderate pain, for pain scale 4 to 6 or pain not relieved by medications for pain scale 1 - 3 Given 08/02/2021 3:59 PM CDT 5 mg Given 08/01/2021 6:51 PM CDT 5 mg polyethylene glycol (MIRALAX) packet 1 Given 08/02/2021 10:42 AM CDT 1 packet packet 1 packet, Oral, Daily, First dose on Sun08/02/21 at 0900, Until Discontinued, Dissolve in 8 ounces of water, juice, soda, coffee, tea. sodium chloride 0.9% IV solution Rate Change 08/02/2021 7:47 PM CDT 50 mL/hr IV, at 50 mL/hr, Continuous, Starting on Sun07/31/21 at 2250, Until Sun08/03/21 at 1343, 1,000 mL Restarted 08/02/2021 10:42 AM CDT 75 mL/hr New Bag/Tubing 08/02/2021 9:55 AM CDT 75 mL/hr documented in this encounter Active and Recently Administered Medications Times are shown in CDT. Medication Order 08/02/2021 08/03/2021 08/04/2021 acetaminophen (TYLENOL) tablet 650 mg 14 28 (Given - Provider: Jose Ramirez RN)1818 (Given - Provider: Jose Ramirez RN) 0012 (Given - Provider: Heriberto Marcano RN)0613 (Given - Provider: Heriberto Marcano RN)1200 (Due)1800 (Due) 650 mg, Oral, Every six hours, First dos e (after last modification) on Sun08/03/21 at 1345, Until Discontinued, PACU - Continue Post-Op, Adult patients: Total dose of acetaminophen from all acetaminophe n containing products should not exceed 4 grams (4000 mg) per day. Pediatric Patients 0 - 3 months: Maximum of 60 mg/kg/24 hours of acetaminophen. Pediatric Patients older than 3 months: Maximum of 75 mg/kg/24 hours of acetaminophen (Never exceeding 4 grams/day). ceFAZolin (ANCEF) 2000 mg/20 mL sterile water IV syrin ge (COMPLETED) 1557 (Given - Provider: Isabel Sethi RN) 0107 (Given - Provider: Thierry Trevizo RN) 2,000 mg, IV, Every eight hours, 2 doses , First dose on Sun08/02/21 at 1530, Last dose on Sun08/02/21 at 2330, 20 mL, PACU - Continue Post-Op, Administer as IV push over 4 minutes. cefuroxime (CEFTIN) tablet 250 mg (CANCELED) 1041 (Giv en - Provider: Kacy Alexander RN) 250 mg, Oral, Two times a day, First dos e on Sun08/01/21 at 2100, Until Discontinued, Tablet should not be crushed or chewed. cefuroxime (CEFTIN) tablet 250 mg 899 ( Given - Provider: Jose Ramirez RN)2044 (Given - Provider: Heriberto Marcano RN) 09 (Given - Provider: Radha Valles RN)1999 (Due) 250 mg, Oral, Two times a day, First dos e (after last modification) on Sun08/03/21 at 0800, Until Discontinued, Tablet should not be crushed or chewed. cloZAPine (CLOZARIL) tablet 200 mg 2105 (Given - Provider: Bronwyn Trevizo RN) 2044 (Given - Provider: Heriberto Marcano RN) 2100 (Due) 200 mg, Oral, Bedtime, First dose on 07/31/21 at 2300, Until Discontinued divalproex (DEPAKOTE ER) extended release tablet (24 h r) 500 mg 2104 (Given - Provider: Thierry Trevizo RN) 2043 (Given - Provider: Heriberto Marcano RN) 2100 (Due) 500 mg, Oral, Bedtime, First dose on 07/31/21 at 2300, Until Discontinued, Tablet should be swalloed whole and not divided, crushed or chewed. If unable to administer dose intact, wear universal precautions (one pair of gloves). docusate sodium (COLACE) capsule 200 mg 1041 (Given - Provider: Kacy Alexander RN)2023 (Given - Provider: Thierry Trevizo RN) 09 (Given - Provider: Jose Ramirez RN)2045 (Given - Provider: Heriberto Marcano RN) 0925 (Given - Provider: Radha Valles RN)2099 (Due) 200 mg, Oral, Two times a day, First dos e on Sun07/31/21 at 2140, Until Discontinued, Swallow cap whole. Should not be crushed or chewed. enoxaparin (LOVENOX) subcutaneous injection solution 4 0 mg 2023 (Given - Provider: Thierry Trevizo RN) 2043 (Given - Provider: Heriberto Marcano RN) 2099 (Due) 40 mg, Subcutaneous, Bedtime, First dose on Sun08/01/21 at 2100, Until Discontinued, To avoid the loss of drug when using the 30 mg and 40 mg prefilled syringes, do not expel the air bubble from the syr malcom before the injection. For ADULT p atients: Administration should be alternated between the left and right anterolateral and left and right posterolateral abdominal wall. The whole length of the ne edle should be introduced into a skin fo ld held between the thumb and forefinger; the skin fold should be held throughout the injection. To minimize bruising, do not rub the injection site after complet ion of the injection. For PEDIATRIC p atients: Administration should be alternated between appropriate sites for patient age/weight (infants/small children = upper thigh; older children/adolescents = left and right anterolateral and left an d right posterolateral abdominal wall). During administration to infants/smaller children sometimes the whole length of the needle is not "introduced" during the injection. Administer injection into a s kin fold held between the thumb and forefinger; the skin fold should be held throughout the injection. To minimize bruising, do not rub the injection site after completion of the injection. influenza immunization reminder 1042 (Noted Reminder - Provider: Kacy Alexander RN)2016 (Noted Reminder - Provider: Thierry Trevizo RN) 09 (Noted Reminder - Provider: Jsoe Ramirez RN)2033 (Noted Reminder - Provider: Heriberto Marcano RN) 09 (Noted Reminder - Provider: Radha plaza RN)2099 (Due) 1 each, Does not apply, Immunization jimi or to discharge, First dose on Sun08/01/21 at 0900, Until Discontinued, This patient is eligible for the influenza vaccine. Administer the vaccine as soon as pos sible. Document consent on the Influenza MAR order. If the patient is in the ICU, administer the vaccine as soon as patient is eligible for floor transfer. RN to discontinue the reminder order AFTER vaccine administration. levothyroxine tablet 137 mcg 0643 (Given - Provider: Koffi Garcia RN) 0658 (Given - Provider: Thierry Trevizo RN) 0613 (Given - Provider: Heriberto Marcano, FABIANA) 137 mcg, Oral, One time a day before carline akfast, First dose on Sun08/01/21 at 0600, Until Discontinued polyethylene glycol (MIRALAX) packet 1 packet (CANCELE D) 1042 (Given - Provider: Kacy Aleaxnder, FABIANA) 1 packet, Oral, Daily, First dose on Sun08/02/21 at 0900, Until Discontinued, Dissolve in 8 ounces of water, juice, soda, coffee, tea. polyethylene glycol (MIRALAX) packet 1 packet 0900 (Given - Provider: Jose Ramirez RN) 0925 (Given - Provider: Daniel Kwong) 1 packet, Oral, Daily, First dose on Sun08/03/21 at 0900, Until Discontinued, Post - Op, Hold if 2 loose stools occur in the last 24 hours. Do NOT give if patient on thickened liquids. Contact provider for alternative if needed. senna-docusate sodium (SENOKOT-S;PERICOLACE) tablet 1 tablet 2024 (Given - Provider: Thierry Trevizo RN) 0900 (Given - Provider: Jose Ramirez RN )2044 (Given - Provider: Heriberto Marcano RN) 0925 (Given - Provider: Radha Valles RN)2099 (Due) 1 tablet, Oral, Two times a day, First d ose on Sun08/02/21 at 2100, Until Discontinued, Post - Op, Hold if 2 loose stools occur in the last 24 hours. sodium chloride 0.9% flush (adult) 10 mL 1042 (Given - Provider: Kacy Alexander RN)2024 (Already Infusing. - Provider: Thierry Trevizo RN) 09 (Not Indicated - Provider: Jose Ramirez RN)2050 (Given - Provider: Heriberto R Despiegler, RN) 0925 (Given - Provider: Daniel Kwong)2100 (Due) 10 mL, IV, Two times a day and prn, Firs t dose on Sun07/31/21 at 2145, Until Discontinued, 10 mL, Flush PIV line as scheduled and as often as necessary before and after meds. Use a push / pause technique when flushing to create turbulence. Medication Order 08/02/2021 08/03/2021 08/04/2021 sodium chloride 0.9% IV solution (CANCELED) 031 (Stop ped - Provider: Koffi Garcia, FABIANA)0313 (New Bag - Provider: Koffi Garcia RN)0955 (New Bag/Tubing - Provider: Sanjuana Garcia RN)1042 (Restarted - Provider: Kacy Alexander RN)1947 (Rate Change - Provider: Thierry Trevizo RN) IV, at 50 mL/hr, Continuous, Starting on Sun07/31/21 at 2250, Until Sun08/03/21 at 1343, 1,000 mL Medication Order 08/02/2021 08/03/2021 08/04/2021 acetaminophen (TYLENOL) tablet 650 mg (CANCELED) 1558 (Given - Provider: Isabel Sethi RN) 0900 (Given - Provider: Jose Ramirez RN) 650 mg, Oral, Every four hours prn, Star ting on Sun08/02/21 at 0907, Until Sun08/03/21 at 1343, mild pain, fever, pain scale 3 or less, PACU - Continue Post- Op, Adult patients: Total dose of acetaminoph en from all acetaminophen containing pro ducts should not exceed 4 grams (4000 mg) per day. Pediatric Patients 0 - 3 months: Maximum of 60 mg/kg/24 hours of acetaminophen. Pediatric Patients older than 3 months: Maximum of 75 mg/kg/24 hours of acetaminophen (Never exceeding 4 grams/day). bisacodyl (DULCOLAX) suppository 10 mg 10 mg, Rectal, One time a day prn, Start ing on Sun08/02/21 at 1216, Until Discontinued, constipation, Post - Op, Use second for constipation. If patient cannot take oral medications, use first for constipation. calcium carbonate (TUMS) chewable tablet 1,000 mg 1,000 mg, Oral, Every four hours prn, St arting on Sun07/31/21 at 2140, Until Discontinued, other (Specify), acid reflux, Use FIRST for acid reflux. If ineffective after 60 minutes, may proceed to next choice option or, if no other options, contact provider. fentaNYL 100 mcg/2 mL preservative free injection solu tion 25 mcg 0009 (Given - Provider: Koffi Garcia, FABIANA) 25 mcg, IV, Every two hours prn, Startin g on 07/31/21 at 2140, Until Discontinued, severe pain, 0.5 mL, For pain Scale 7 or greater or pain not relieved by medications for Pain Scale 4-6. hydrALAZINE (APRESOLINE) injection solution 15 mg 15 mg, IV, Every two hours prn, Starting on Sun07/31/21 at 2148, Until Discontinued, Use SECOND for HTN or use FIRST for HTN if HR<65. For SBP>180 or DBP>105., 0.75 mL hydrOXYzine pamoate (VISTARIL) capsule 25 mg 1429 (Given - Provider: Jose Ramirez, FABIANA)1436 (Not Indicated - Provider: Jose Ramirez, FABIANA) 25 mg, Oral, Every six hours prn, Starti ng on Sun08/03/21 at 1307, Until Discontinued, anxiety, other (Specify), pain in adjunction with oxycodone labetalol (NORMODYNE;TRANDATE) IV solution 20 mg 20 mg, IV, Every two hours prn, Starting on Sun07/31/21 at 2148, Until Discontinued, blood pressure, Use FIRST for HTN. For SBP>180 or DBP >105. Hold for HR<65., 20 mL melatonin tablet 3 mg 3 mg, Oral, Bedtime prn, Starting on Sun07/31/21 at 2140, Until Discontinued, other (Specify), insomnia, Use FIRST for insomnia. If inadequate response in 60 minutes, may proceed to next choice option or, if no other options, contact provider. nalOXone (NARCAN) injection solution (vial) 0.2 mg 0.2 mg, Injection, Every two minutes prn , Starting on Sun07/31/21 at 2138, Until Discontinued, other (Specify), opioid induced respiratory depression - PARTIAL reversal, 0.5 mL, PARTIAL REVERSAL/RESPIRA TORY DEPRESSION If respiratory rate less than 8/minute - call rapid response and administer (until respiratory rate increases to 10/minute). Give IV (preferred), IM or SUBQ nalOXone (NARCAN) injection solution (vial) 0.4 mg 0.4 mg, Injection, Every two minutes prn , Starting on Sun07/31/21 at 2138, Until Discontinued, other (Specify), opioid induced respiratory arrest - FULL reversal, 1 mL, FULL REVERSAL/RESPIRATORY ARREST If patient is not breathing - call CODE BLUE and administer. Give IV (preferred), IM or SUBQ ondansetron (ZOFRAN) injection solution 4 mg 4 mg, IV, Every four hours prn, Starting on Sun08/02/21 at 0907, Until Discontinued, nausea, vomiting, 2 mL, PACU - Continue Post-Op, Use FIRST for nausea/vomiting. If ineffective after 15 minutes use h aloperidol if ordered for nausea/vomitin g. If preference is to further dilute for IV administration: First draw up patient-specific dose, then dilute to 10 mL with 0.9% sodium chloride. oxyCODONE (OXY-IR) tablet 10 mg(Linked Group 1) 1435 (See Alternative - Provider: Jose Ramirez RN)2046 (Given - Provider: Heriberto Marcano RN) 10 mg, Oral, Every four hours prn, Start ing on Sun08/03/21 at 1309, Until Discontinued, severe pain, for pain rated 7 or greater, Pain stratification is defined as follows for either analog scale (0-10) or critical care pain observation tool (CPOT, 0-8). a. No pain (0) b. Mild pain level (1-3) c. Moderate pain level (4-6) d. Severe pain level (greater than or equal to 7) oxyCODONE (OXY-IR) tablet 5 mg (CANCELED) 1558 (Given - Provider: Isabel Sethi RN)2049 (Given - Provider: Thierry Trevizo, FABIANA)2149 (Reassessment - Provider: Thierry Trevizo, FABIANA) 5 mg, Oral, Every four hours prn, Starti ng on Sun07/31/21 at 2140, Until Sun08/03/21 at 1309, moderate pain, for pain scale 4 to 6 or pain not relieved by medications for pain scale 1 - 3 oxyCODONE (OXY-IR) tablet 5 mg(Linked Group 1) 1435 (Given - Provider: Jose Ramirez RN)2046 (See Alternative - Provider: Heriberto Marcano RN) 5 mg, Oral, Every four hours prn, Starti ng on Sun08/03/21 at 1309, Until Discontinued, moderate pain, for pain rated 4-6, Pain stratification is defined as follows for either analog scale (0-10) or [employer] pain observation tool (CPOT, 0 -8). a. No pain (0) b. Mild pain level (1-3) c. Moderate pain level (4-6) d. Severe pain level (greater than or equal to 7) senna-docusate sodium (SENOKOT-S;PERICOLACE) tablet 1 tablet 1 tablet, Oral, Two times a day prn, Sta rting on Sun08/02/21 at 1216, Until Discontinued, constipation, Post - Op, Use first for constipation unless patient cannot take oral medications sodium chloride irrigation 0.9 % solution (CANCELED) 0 752 (Given - Provider: Jairo Jackson MD - Comment: STANDBY ON STERILE FIELD) INTRAOP, Starting on Sun08/02/21 at 0752, Until Sun at 0905, Intra - Op Order Group 1: oxyCODONE (OXY-IR) tablet 5 mgJump to med 5 mg, Oral, Every four hours prn, Starti ng on Sun08/03/21 at 1309, Until Discontinued, moderate pain, for pain rated 4-6
Pain stratification is defined as follows for either analog scale (0-10) or critical care pain observation tool (CPOT, 0-8). a. No pain (0) b. Mild pain level (1-3) c. Moderate pain level (4-6) d. Severe pain level (greater than or equal to 7)
Or oxyCODONE (OXY-IR) tablet 10 mgJump to med 10 mg, Oral, Every four hours prn, Start ing on Sun08/03/21 at 1309, Until Discontinued, severe pain, for pain rated 7 or greater
Pain stratification is defined as follows for either analog scal e (0-10) or critical care pain observati on tool (CPOT, 0-8). a. No pain (0) b. Mild pain level (1-3) c. Moderate pain level (4-6) d. Severe pain level (greater than or equal to 7)
documented in this encounter
[2021-08-08] MEDS: Divalproex Sodium 250 MG Tab.ER PO SCH (19:43)
[2021-08-08] MEDS: Enoxaparin 40 MG/0.4 ML Syringe SUBCUT SCH (19:44)
[2021-08-09] MEDS: Calcium Carbonate/Vitamin D3 1500 MG-400 Units Tab PO SCH ×2 (08:13→20:39)
[2021-08-09] MEDS: Levothyroxine 112 MCG Tab PO SCH (08:13)
[2021-08-09] MEDS: Multivitamin Tab PO SCH (08:14)
[2021-08-09] MEDS: Cholecalciferol (Vitamin D3) 25 MCG Tab PO SCH (08:14)
[2021-08-09] MEDS: Levothyroxine 25 MCG Tab PO SCH (08:20)
[2021-08-09] MEDS: Acetaminophen 325 MG Tab PO PRN ×2 (08:21→15:14)
[2021-08-09] MEDS: Enoxaparin 40 MG/0.4 ML Syringe SUBCUT SCH (20:38)
[2021-08-09] MEDS: Divalproex Sodium 250 MG Tab.ER PO SCH (20:38)
[2021-08-09] MEDS: Clotrimazole 1% Crm 30 GM Tube TOP SCH (20:39)
[2021-08-10] MEDS: Calcium Carbonate/Vitamin D3 1500 MG-400 Units Tab PO SCH ×2 (07:58→19:29)
[2021-08-10] MEDS: Levothyroxine 25 MCG Tab PO SCH (07:59)
[2021-08-10] MEDS: Cholecalciferol (Vitamin D3) 25 MCG Tab PO SCH (07:59)
[2021-08-10] MEDS: Levothyroxine 112 MCG Tab PO SCH (07:59)
[2021-08-10] MEDS: Multivitamin Tab PO SCH (07:59)
[2021-08-10] MEDS: Clotrimazole 1% Crm 30 GM Tube TOP SCH ×2 (08:00→19:34)
[2021-08-10] MEDS: Divalproex Sodium 250 MG Tab.ER PO SCH (19:30)
[2021-08-10] MEDS: Enoxaparin 40 MG/0.4 ML Syringe SUBCUT SCH (19:31)
[2021-08-10] MEDS: Acetaminophen 325 MG Tab PO PRN (21:57)
[2021-08-11] MEDS: Calcium Carbonate/Vitamin D3 1500 MG-400 Units Tab PO SCH ×2 (08:40→19:26)
[2021-08-11] MEDS: Cholecalciferol (Vitamin D3) 25 MCG Tab PO SCH (08:40)
[2021-08-11] MEDS: Multivitamin Tab PO SCH (08:40)
[2021-08-11] MEDS: Levothyroxine 25 MCG Tab PO SCH (08:40)
[2021-08-11] MEDS: Levothyroxine 112 MCG Tab PO SCH (08:40)
[2021-08-11] MEDS: Clotrimazole 1% Crm 30 GM Tube TOP SCH ×2 (08:44→19:27)
[2021-08-11] MEDS: Acetaminophen 325 MG Tab PO PRN ×2 (12:08→22:15)
[2021-08-11] MEDS: Divalproex Sodium 250 MG Tab.ER PO SCH (19:26)
[2021-08-11] MEDS: Enoxaparin 40 MG/0.4 ML Syringe SUBCUT SCH (19:26)
[2021-08-12] MEDS: Levothyroxine 112 MCG Tab PO SCH (07:53)
[2021-08-12] MEDS: Calcium Carbonate/Vitamin D3 1500 MG-400 Units Tab PO SCH ×2 (07:53→19:45)
[2021-08-12] MEDS: Cholecalciferol (Vitamin D3) 25 MCG Tab PO SCH (07:53)
[2021-08-12] MEDS: Multivitamin Tab PO SCH (07:53)
[2021-08-12] MEDS: Levothyroxine 25 MCG Tab PO SCH (07:53)
[2021-08-12] MEDS: Clotrimazole 1% Crm 30 GM Tube TOP SCH ×2 (07:54→19:47)
[2021-08-12] MEDS: Divalproex Sodium 250 MG Tab.ER PO SCH (19:45)
[2021-08-12] MEDS: Enoxaparin 40 MG/0.4 ML Syringe SUBCUT SCH (19:46)
[2021-08-12] MEDS: Acetaminophen 325 MG Tab PO PRN (21:49)
[2021-08-13] MEDS: Levothyroxine 112 MCG Tab PO SCH (07:12)
[2021-08-13] MEDS: Multivitamin Tab PO SCH (07:12)
[2021-08-13] MEDS: Cholecalciferol (Vitamin D3) 25 MCG Tab PO SCH (07:12)
[2021-08-13] MEDS: Levothyroxine 25 MCG Tab PO SCH (07:12)
[2021-08-13] MEDS: Calcium Carbonate/Vitamin D3 1500 MG-400 Units Tab PO SCH ×2 (07:12→19:25)
[2021-08-13] MEDS: Clotrimazole 1% Crm 30 GM Tube TOP SCH ×2 (08:35→19:26)
[2021-08-13] MEDS: Divalproex Sodium 250 MG Tab.ER PO SCH (19:25)
[2021-08-13] MEDS: Enoxaparin 40 MG/0.4 ML Syringe SUBCUT SCH (19:25)
[2021-08-13] MEDS: Acetaminophen 325 MG Tab PO PRN (21:55)
[2021-08-14] MEDS: Levothyroxine 25 MCG Tab PO SCH (07:29)
[2021-08-14] MEDS: Calcium Carbonate/Vitamin D3 1500 MG-400 Units Tab PO SCH ×2 (07:29→19:35)
[2021-08-14] MEDS: Clotrimazole 1% Crm 30 GM Tube TOP SCH ×2 (07:29→19:39)
[2021-08-14] MEDS: Cholecalciferol (Vitamin D3) 25 MCG Tab PO SCH (07:29)
[2021-08-14] MEDS: Levothyroxine 112 MCG Tab PO SCH (07:29)
[2021-08-14] MEDS: Multivitamin Tab PO SCH (07:29)
[2021-08-14] MEDS: Divalproex Sodium 250 MG Tab.ER PO SCH (19:38)
[2021-08-14] MEDS: Enoxaparin 40 MG/0.4 ML Syringe SUBCUT SCH (19:40)
[2021-08-14] MEDS: Acetaminophen 325 MG Tab PO PRN (22:27)
[2021-08-15] MEDS: Levothyroxine 25 MCG Tab PO SCH (07:23)
[2021-08-15] MEDS: Levothyroxine 112 MCG Tab PO SCH (07:23)
[2021-08-15] MEDS: Cholecalciferol (Vitamin D3) 25 MCG Tab PO SCH (07:23)
[2021-08-15] MEDS: Multivitamin Tab PO SCH (07:23)
[2021-08-15] MEDS: Calcium Carbonate/Vitamin D3 1500 MG-400 Units Tab PO SCH ×2 (07:23→21:54)
[2021-08-15] MEDS: Clotrimazole 1% Crm 30 GM Tube TOP SCH ×2 (07:23→21:55)
[2021-08-15] MEDS: Acetaminophen 325 MG Tab PO PRN (14:47)
[2021-08-15] MEDS: Divalproex Sodium 250 MG Tab.ER PO SCH (21:53)
[2021-08-15] MEDS: Acetaminophen/Codeine 300-30 MG Tab PO PRN (21:53)
[2021-08-15] MEDS: Enoxaparin 40 MG/0.4 ML Syringe SUBCUT SCH (21:55)
[2021-08-16] MEDS: Levothyroxine 25 MCG Tab PO SCH (07:51)
[2021-08-16] MEDS: Multivitamin Tab PO SCH (07:51)
[2021-08-16] MEDS: Calcium Carbonate/Vitamin D3 1500 MG-400 Units Tab PO SCH ×2 (07:51→19:13)
[2021-08-16] MEDS: Levothyroxine 112 MCG Tab PO SCH (07:51)
[2021-08-16] MEDS: Cholecalciferol (Vitamin D3) 25 MCG Tab PO SCH (07:51)
[2021-08-16] MEDS: Clotrimazole 1% Crm 30 GM Tube TOP SCH ×2 (07:51→19:13)
[2021-08-16] MEDS: Divalproex Sodium 250 MG Tab.ER PO SCH (19:13)
[2021-08-16] MEDS: Enoxaparin 40 MG/0.4 ML Syringe SUBCUT SCH (19:14)
[2021-08-16] MEDS: Acetaminophen 325 MG Tab PO PRN (21:34)
[2021-08-17] MEDS: Levothyroxine 25 MCG Tab PO SCH (07:58)
[2021-08-17] MEDS: Cholecalciferol (Vitamin D3) 25 MCG Tab PO SCH (07:58)
[2021-08-17] MEDS: Calcium Carbonate/Vitamin D3 1500 MG-400 Units Tab PO SCH ×2 (07:58→19:46)
[2021-08-17] MEDS: Multivitamin Tab PO SCH (07:59)
[2021-08-17] MEDS: Levothyroxine 112 MCG Tab PO SCH (07:59)
[2021-08-17] MEDS: Clotrimazole 1% Crm 30 GM Tube TOP SCH ×2 (08:00→19:46)
[2021-08-17] MEDS: Divalproex Sodium 250 MG Tab.ER PO SCH (19:46)
[2021-08-17] MEDS: Enoxaparin 40 MG/0.4 ML Syringe SUBCUT SCH (19:46)
[2021-08-18] MEDS: Calcium Carbonate/Vitamin D3 1500 MG-400 Units Tab PO SCH ×2 (08:21→19:40)
[2021-08-18] MEDS: Levothyroxine 112 MCG Tab PO SCH (08:21)
[2021-08-18] MEDS: Cholecalciferol (Vitamin D3) 25 MCG Tab PO SCH (08:22)
[2021-08-18] MEDS: Clotrimazole 1% Crm 30 GM Tube TOP SCH ×2 (08:22→19:41)
[2021-08-18] MEDS: Levothyroxine 25 MCG Tab PO SCH (08:22)
[2021-08-18] MEDS: Multivitamin Tab PO SCH (08:22)
[2021-08-18] MEDS: Divalproex Sodium 250 MG Tab.ER PO SCH (19:40)
[2021-08-18] MEDS: Acetaminophen 325 MG Tab PO PRN (21:52)
[2021-08-19] MEDS: Magnesium Hydroxide 400 MG/5 ML Susp 30 ML Cup PO PRN (09:09)
[2021-08-19] MEDS: Calcium Carbonate/Vitamin D3 1500 MG-400 Units Tab PO SCH ×2 (09:09→19:46)
[2021-08-19] MEDS: Levothyroxine 25 MCG Tab PO SCH (09:10)
[2021-08-19] MEDS: Multivitamin Tab PO SCH (09:10)
[2021-08-19] MEDS: Levothyroxine 112 MCG Tab PO SCH (09:10)
[2021-08-19] MEDS: Cholecalciferol (Vitamin D3) 25 MCG Tab PO SCH (09:10)
[2021-08-19] MEDS: Clotrimazole 1% Crm 30 GM Tube TOP SCH ×2 (09:10→19:48)
[2021-08-19] MEDS: Divalproex Sodium 250 MG Tab.ER PO SCH (19:46)
[2021-08-19] MEDS: Acetaminophen 325 MG Tab PO PRN (22:27)
[2021-08-20] MEDS: Cholecalciferol (Vitamin D3) 25 MCG Tab PO SCH (08:00)
[2021-08-20] MEDS: Levothyroxine 112 MCG Tab PO SCH (10:42)
[2021-08-20] MEDS: Levothyroxine 25 MCG Tab PO SCH (10:43)
[2021-08-20] MEDS: Multivitamin Tab PO SCH (10:43)
[2021-08-20] MEDS: Clotrimazole 1% Crm 30 GM Tube TOP SCH ×2 (10:54→19:33)
[2021-08-20] MEDS: Calcium Carbonate/Vitamin D3 1500 MG-400 Units Tab PO SCH ×2 (10:54→19:32)
[2021-08-20] MEDS: Divalproex Sodium 250 MG Tab.ER PO SCH (19:32)
[2021-08-20] MEDS: Acetaminophen 325 MG Tab PO PRN (21:38)
[2021-08-21] MEDS: Clotrimazole 1% Crm 30 GM Tube TOP SCH ×2 (07:53→19:38)
[2021-08-21] MEDS: Levothyroxine 25 MCG Tab PO SCH (07:53)
[2021-08-21] MEDS: Calcium Carbonate/Vitamin D3 1500 MG-400 Units Tab PO SCH ×2 (07:54→19:36)
[2021-08-21] MEDS: Levothyroxine 112 MCG Tab PO SCH (07:54)
[2021-08-21] MEDS: Multivitamin Tab PO SCH (07:56)
[2021-08-21] MEDS: Cholecalciferol (Vitamin D3) 25 MCG Tab PO SCH (07:56)
[2021-08-21] MEDS: Divalproex Sodium 250 MG Tab.ER PO SCH (19:36)
[2021-08-21] MEDS: Acetaminophen 325 MG Tab PO PRN (22:52)
[2021-08-22] MEDS: Levothyroxine 112 MCG Tab PO SCH (07:33)
[2021-08-22] MEDS: Levothyroxine 25 MCG Tab PO SCH (07:33)
[2021-08-22] MEDS: Calcium Carbonate/Vitamin D3 1500 MG-400 Units Tab PO SCH ×2 (07:33→19:28)
[2021-08-22] MEDS: Multivitamin Tab PO SCH (07:33)
[2021-08-22] MEDS: Cholecalciferol (Vitamin D3) 25 MCG Tab PO SCH (07:34)
[2021-08-22] MEDS: Clotrimazole 1% Crm 30 GM Tube TOP SCH ×2 (07:34→19:29)
[2021-08-22] MEDS: Divalproex Sodium 250 MG Tab.ER PO SCH (19:28)
[2021-08-23] MEDS: Clotrimazole 1% Crm 30 GM Tube TOP SCH ×2 (07:00→20:58)
[2021-08-23] MEDS: Levothyroxine 25 MCG Tab PO SCH (07:07)
[2021-08-23] MEDS: Levothyroxine 112 MCG Tab PO SCH (07:07)
[2021-08-23] MEDS: Calcium Carbonate/Vitamin D3 1500 MG-400 Units Tab PO SCH ×2 (07:08→20:56)
[2021-08-23] MEDS: Multivitamin Tab PO SCH (07:08)
[2021-08-23] MEDS: Cholecalciferol (Vitamin D3) 25 MCG Tab PO SCH (07:08)
[2021-08-23] MEDS: Divalproex Sodium 250 MG Tab.ER PO SCH (20:56)
[2021-08-23] MEDS: Acetaminophen 325 MG Tab PO PRN (22:26)
[2021-08-24] MEDS: Cholecalciferol (Vitamin D3) 25 MCG Tab PO SCH (08:22)
[2021-08-24] MEDS: Calcium Carbonate/Vitamin D3 1500 MG-400 Units Tab PO SCH ×2 (08:22→19:14)
[2021-08-24] MEDS: Levothyroxine 112 MCG Tab PO SCH (08:22)
[2021-08-24] MEDS: Levothyroxine 25 MCG Tab PO SCH (08:22)
[2021-08-24] MEDS: Multivitamin Tab PO SCH (08:22)
[2021-08-24] MEDS: Clotrimazole 1% Crm 30 GM Tube TOP SCH ×2 (08:22→19:15)
[2021-08-24] MEDS: Divalproex Sodium 250 MG Tab.ER PO SCH (19:14)
[2021-08-25] MEDS: Calcium Carbonate/Vitamin D3 1500 MG-400 Units Tab PO SCH ×2 (08:23→19:46)
[2021-08-25] MEDS: Multivitamin Tab PO SCH (08:24)
[2021-08-25] MEDS: Cholecalciferol (Vitamin D3) 25 MCG Tab PO SCH (08:24)
[2021-08-25] MEDS: Levothyroxine 25 MCG Tab PO SCH (08:24)
[2021-08-25] MEDS: Levothyroxine 112 MCG Tab PO SCH (08:24)
[2021-08-25] MEDS: Clotrimazole 1% Crm 30 GM Tube TOP SCH ×2 (08:25→19:47)
[2021-08-25] MEDS ORDERED: Aspirin 325 MG Tab PO SCH (18:00)
[2021-08-25] MEDS: Divalproex Sodium 250 MG Tab.ER PO SCH (19:46)
[2021-08-25] MEDS: Acetaminophen 325 MG Tab PO PRN (22:00)
[2021-08-26] MEDS: Cholecalciferol (Vitamin D3) 25 MCG Tab PO SCH (08:35)
[2021-08-26] MEDS: Aspirin 325 MG Tab.EC PO SCH ×2 (08:35→17:16)
[2021-08-26] MEDS: Levothyroxine 25 MCG Tab PO SCH (08:36)
[2021-08-26] MEDS: Acetaminophen 325 MG Tab PO PRN ×3 (08:36→22:17)
[2021-08-26] MEDS: Multivitamin Tab PO SCH (08:37)
[2021-08-26] MEDS: Calcium Carbonate/Vitamin D3 1500 MG-400 Units Tab PO SCH ×2 (08:37→19:52)
[2021-08-26] MEDS: Levothyroxine 112 MCG Tab PO SCH (08:37)
[2021-08-26] MEDS: Clotrimazole 1% Crm 30 GM Tube TOP SCH ×2 (08:40→19:52)
[2021-08-26] MEDS: Magnesium Hydroxide 400 MG/5 ML Susp 30 ML Cup PO PRN (17:16)
[2021-08-26] MEDS: Divalproex Sodium 250 MG Tab.ER PO SCH (19:52)
[2021-08-27] MEDS: Polyethylene Glycol 3350 Powder 17 GM Packet PO PRN (07:43)
[2021-08-27] MEDS: Aspirin 325 MG Tab.EC PO SCH ×2 (07:43→17:28)
[2021-08-27] MEDS: Levothyroxine 112 MCG Tab PO SCH (07:44)
[2021-08-27] MEDS: Calcium Carbonate/Vitamin D3 1500 MG-400 Units Tab PO SCH ×2 (07:44→19:02)
[2021-08-27] MEDS: Multivitamin Tab PO SCH (07:44)
[2021-08-27] MEDS: Cholecalciferol (Vitamin D3) 25 MCG Tab PO SCH (07:44)
[2021-08-27] MEDS: Levothyroxine 25 MCG Tab PO SCH (07:44)
[2021-08-27] MEDS: Acetaminophen 325 MG Tab PO PRN ×2 (07:45→22:21)
[2021-08-27] MEDS: Clotrimazole 1% Crm 30 GM Tube TOP SCH ×2 (07:47→19:02)
[2021-08-27] MEDS: Magnesium Hydroxide 400 MG/5 ML Susp 30 ML Cup PO PRN (17:30)
[2021-08-27] MEDS: Divalproex Sodium 250 MG Tab.ER PO SCH (19:02)
[2021-08-28] MEDS: Clotrimazole 1% Crm 30 GM Tube TOP SCH ×2 (07:51→19:14)
[2021-08-28] MEDS: Polyethylene Glycol 3350 Powder 17 GM Packet PO PRN (07:51)
[2021-08-28] MEDS: Multivitamin Tab PO SCH (07:52)
[2021-08-28] MEDS: Calcium Carbonate/Vitamin D3 1500 MG-400 Units Tab PO SCH ×2 (07:52→19:15)
[2021-08-28] MEDS: Cholecalciferol (Vitamin D3) 25 MCG Tab PO SCH (07:52)
[2021-08-28] MEDS: Aspirin 325 MG Tab.EC PO SCH ×2 (07:52→17:24)
[2021-08-28] MEDS: Levothyroxine 112 MCG Tab PO SCH (07:52)
[2021-08-28] MEDS: Acetaminophen 325 MG Tab PO PRN ×3 (07:53→22:08)
[2021-08-28] MEDS: Levothyroxine 25 MCG Tab PO SCH (07:53)
[2021-08-28] MEDS: Divalproex Sodium 250 MG Tab.ER PO SCH (19:14)
[2021-08-29] MEDS: Multivitamin Tab PO SCH (07:43)
[2021-08-29] MEDS: Levothyroxine 25 MCG Tab PO SCH (07:43)
[2021-08-29] MEDS: Aspirin 325 MG Tab.EC PO SCH ×2 (07:43→17:29)
[2021-08-29] MEDS: Calcium Carbonate/Vitamin D3 1500 MG-400 Units Tab PO SCH ×2 (07:43→20:32)
[2021-08-29] MEDS: Levothyroxine 112 MCG Tab PO SCH (07:44)
[2021-08-29] MEDS: Clotrimazole 1% Crm 30 GM Tube TOP SCH ×2 (07:44→20:35)
[2021-08-29] MEDS: Cholecalciferol (Vitamin D3) 25 MCG Tab PO SCH (07:44)
[2021-08-29] MEDS ORDERED: Polyethylene Glycol 3350 Powder 510 GM Bot PO PRN (12:07)
[2021-08-29] MEDS: Acetaminophen 325 MG Tab PO PRN ×2 (13:38→21:58)
[2021-08-29] MEDS: Divalproex Sodium 250 MG Tab.ER PO SCH (20:34)
[2021-08-30] MEDS: Calcium Carbonate/Vitamin D3 1500 MG-400 Units Tab PO SCH ×2 (08:16→20:10)
[2021-08-30] MEDS: Levothyroxine 25 MCG Tab PO SCH (08:17)
[2021-08-30] MEDS: Levothyroxine 112 MCG Tab PO SCH (08:17)
[2021-08-30] MEDS: Aspirin 325 MG Tab.EC PO SCH ×2 (08:17→17:33)
[2021-08-30] MEDS: Clotrimazole 1% Crm 30 GM Tube TOP SCH ×2 (08:18→20:13)
[2021-08-30] MEDS: Cholecalciferol (Vitamin D3) 25 MCG Tab PO SCH (08:19)
[2021-08-30] MEDS: Multivitamin Tab PO SCH (08:19)
[2021-08-30] MEDS: Divalproex Sodium 250 MG Tab.ER PO SCH (20:12)
[2021-08-30] MEDS: Acetaminophen 325 MG Tab PO PRN (22:09)
[2021-08-31] MEDS: Cholecalciferol (Vitamin D3) 25 MCG Tab PO SCH (07:44)
[2021-08-31] MEDS: Multivitamin Tab PO SCH (07:44)
[2021-08-31] MEDS: Levothyroxine 112 MCG Tab PO SCH (07:48)
[2021-08-31] MEDS: Aspirin 325 MG Tab.EC PO SCH ×2 (07:49→17:43)
[2021-08-31] MEDS: Levothyroxine 25 MCG Tab PO SCH (07:49)
[2021-08-31] MEDS: Clotrimazole 1% Crm 30 GM Tube TOP SCH ×2 (07:50→20:16)
[2021-08-31] MEDS: Calcium Carbonate/Vitamin D3 1500 MG-400 Units Tab PO SCH ×2 (07:51→20:14)
[2021-08-31] MEDS: Divalproex Sodium 250 MG Tab.ER PO SCH (20:15)
[2021-08-31] MEDS: Acetaminophen 325 MG Tab PO PRN (21:46)
[2021-09-01] MEDS: Calcium Carbonate/Vitamin D3 1500 MG-400 Units Tab PO SCH ×2 (08:25→20:50)
[2021-09-01] MEDS: Aspirin 325 MG Tab.EC PO SCH ×2 (08:26→17:27)
[2021-09-01] MEDS: Levothyroxine 25 MCG Tab PO SCH (08:27)
[2021-09-01] MEDS: Clotrimazole 1% Crm 30 GM Tube TOP SCH ×2 (08:28→20:49)
[2021-09-01] MEDS: Levothyroxine 112 MCG Tab PO SCH (08:28)
[2021-09-01] MEDS: Cholecalciferol (Vitamin D3) 25 MCG Tab PO SCH (08:29)
[2021-09-01] MEDS: Multivitamin Tab PO SCH (08:29)
[2021-09-01] MEDS: Divalproex Sodium 250 MG Tab.ER PO SCH (20:48)
[2021-09-02] MEDS: Calcium Carbonate/Vitamin D3 1500 MG-400 Units Tab PO SCH ×2 (08:01→20:18)
[2021-09-02] MEDS: Aspirin 325 MG Tab.EC PO SCH ×2 (08:01→17:30)
[2021-09-02] MEDS: Levothyroxine 112 MCG Tab PO SCH (08:02)
[2021-09-02] MEDS: Levothyroxine 25 MCG Tab PO SCH (08:04)
[2021-09-02] MEDS: Multivitamin Tab PO SCH (08:05)
[2021-09-02] MEDS: Cholecalciferol (Vitamin D3) 25 MCG Tab PO SCH (08:05)
[2021-09-02] MEDS: Clotrimazole 1% Crm 30 GM Tube TOP SCH ×2 (08:05→20:20)
[2021-09-02] MEDS: Zinc (Zinc Gluconate) 50 MG Tab PO SCH (15:07)
[2021-09-02] MEDS: Divalproex Sodium 250 MG Tab.ER PO SCH (20:19)
[2021-09-02] MEDS: Acetaminophen 325 MG Tab PO PRN (21:56)
[2021-09-03] MEDS: Calcium Carbonate/Vitamin D3 1500 MG-400 Units Tab PO SCH ×2 (07:53→19:25)
[2021-09-03] MEDS: Magnesium Hydroxide 400 MG/5 ML Susp 30 ML Cup PO PRN (07:53)
[2021-09-03] MEDS: Aspirin 325 MG Tab.EC PO SCH ×2 (07:54→18:12)
[2021-09-03] MEDS: Levothyroxine 112 MCG Tab PO SCH (07:54)
[2021-09-03] MEDS: Levothyroxine 25 MCG Tab PO SCH (07:55)
[2021-09-03] MEDS: Clotrimazole 1% Crm 30 GM Tube TOP SCH ×2 (07:55→19:28)
[2021-09-03] MEDS: Cholecalciferol (Vitamin D3) 25 MCG Tab PO SCH (07:56)
[2021-09-03] MEDS: Multivitamin Tab PO SCH (07:56)
[2021-09-03] MEDS: Zinc (Zinc Gluconate) 50 MG Tab PO SCH (07:56)
[2021-09-03] MEDS: Acetaminophen 325 MG Tab PO PRN ×2 (08:32→21:45)
[2021-09-03] MEDS: Divalproex Sodium 250 MG Tab.ER PO SCH (19:26)
[2021-09-04] MEDS: Calcium Carbonate/Vitamin D3 1500 MG-400 Units Tab PO SCH ×2 (07:52→20:17)
[2021-09-04] MEDS: Aspirin 325 MG Tab.EC PO SCH ×2 (07:52→17:13)
[2021-09-04] MEDS: Levothyroxine 25 MCG Tab PO SCH (07:53)
[2021-09-04] MEDS: Levothyroxine 112 MCG Tab PO SCH (07:54)
[2021-09-04] MEDS: Clotrimazole 1% Crm 30 GM Tube TOP SCH ×2 (07:54→20:18)
[2021-09-04] MEDS: Cholecalciferol (Vitamin D3) 25 MCG Tab PO SCH (07:55)
[2021-09-04] MEDS: Multivitamin Tab PO SCH (07:55)
[2021-09-04] MEDS: Zinc (Zinc Gluconate) 50 MG Tab PO SCH (07:55)
[2021-09-04] MEDS: Divalproex Sodium 250 MG Tab.ER PO SCH (20:16)
[2021-09-05] MEDS: Calcium Carbonate/Vitamin D3 1500 MG-400 Units Tab PO SCH ×2 (08:01→20:41)
[2021-09-05] MEDS: Clotrimazole 1% Crm 30 GM Tube TOP SCH ×2 (08:01→20:46)
[2021-09-05] MEDS: Aspirin 325 MG Tab.EC PO SCH ×2 (08:02→17:23)
[2021-09-05] MEDS: Levothyroxine 112 MCG Tab PO SCH (08:02)
[2021-09-05] MEDS: Levothyroxine 25 MCG Tab PO SCH (08:03)
[2021-09-05] MEDS: Cholecalciferol (Vitamin D3) 25 MCG Tab PO SCH (08:04)
[2021-09-05] MEDS: Zinc (Zinc Gluconate) 50 MG Tab PO SCH (08:04)
[2021-09-05] MEDS: Multivitamin Tab PO SCH (08:04)
[2021-09-05] MEDS: Divalproex Sodium 250 MG Tab.ER PO SCH (20:45)
[2021-09-05] MEDS: Acetaminophen 325 MG Tab PO PRN (21:41)
[2021-09-06] MEDS: Calcium Carbonate/Vitamin D3 1500 MG-400 Units Tab PO SCH ×2 (07:26→19:49)
[2021-09-06] MEDS: Levothyroxine 25 MCG Tab PO SCH (07:29)
[2021-09-06] MEDS: Levothyroxine 112 MCG Tab PO SCH (07:30)
[2021-09-06] MEDS: Aspirin 325 MG Tab.EC PO SCH ×2 (07:30→17:14)
[2021-09-06] MEDS: Clotrimazole 1% Crm 30 GM Tube TOP SCH ×2 (07:30→19:50)
[2021-09-06] MEDS: Cholecalciferol (Vitamin D3) 25 MCG Tab PO SCH (07:31)
[2021-09-06] MEDS: Multivitamin Tab PO SCH (07:31)
[2021-09-06] MEDS: Zinc (Zinc Gluconate) 50 MG Tab PO SCH (07:32)
[2021-09-06] MEDS: Acetaminophen 325 MG Tab PO PRN ×2 (07:33→22:10)
[2021-09-06] MEDS: Divalproex Sodium 250 MG Tab.ER PO SCH (19:48)
[2021-09-07] MEDS: Calcium Carbonate/Vitamin D3 1500 MG-400 Units Tab PO SCH ×2 (07:55→20:45)
[2021-09-07] MEDS: Levothyroxine 112 MCG Tab PO SCH (07:56)
[2021-09-07] MEDS: Levothyroxine 25 MCG Tab PO SCH (07:57)
[2021-09-07] MEDS: Aspirin 325 MG Tab.EC PO SCH ×2 (07:57→17:54)
[2021-09-07] MEDS: Clotrimazole 1% Crm 30 GM Tube TOP SCH ×2 (07:58→20:47)
[2021-09-07] MEDS: Multivitamin Tab PO SCH (07:59)
[2021-09-07] MEDS: Cholecalciferol (Vitamin D3) 25 MCG Tab PO SCH (08:00)
[2021-09-07] MEDS: Zinc (Zinc Gluconate) 50 MG Tab PO SCH (08:00)
[2021-09-07] MEDS: Divalproex Sodium 250 MG Tab.ER PO SCH (20:46)
[2021-09-07] MEDS: Acetaminophen 325 MG Tab PO PRN (20:48)
[2021-09-08] MEDS: Levothyroxine 112 MCG Tab PO SCH (08:11)
[2021-09-08] MEDS: Aspirin 325 MG Tab.EC PO SCH ×2 (08:11→17:35)
[2021-09-08] MEDS: Levothyroxine 25 MCG Tab PO SCH (08:11)
[2021-09-08] MEDS: Clotrimazole 1% Crm 30 GM Tube TOP SCH ×2 (08:12→20:55)
[2021-09-08] MEDS: Calcium Carbonate/Vitamin D3 1500 MG-400 Units Tab PO SCH ×2 (08:12→20:33)
[2021-09-08] MEDS: Multivitamin Tab PO SCH (08:13)
[2021-09-08] MEDS: Zinc (Zinc Gluconate) 50 MG Tab PO SCH (08:13)
[2021-09-08] MEDS: Cholecalciferol (Vitamin D3) 25 MCG Tab PO SCH (08:13)
[2021-09-08] MEDS: Acetaminophen 325 MG Tab PO PRN ×2 (08:14→21:51)
[2021-09-08] MEDS: Divalproex Sodium 250 MG Tab.ER PO SCH (20:34)
[2021-09-09] MEDS: Aspirin 325 MG Tab.EC PO SCH ×2 (07:51→17:10)
[2021-09-09] MEDS: Calcium Carbonate/Vitamin D3 1500 MG-400 Units Tab PO SCH ×2 (07:51→20:37)
[2021-09-09] MEDS: Levothyroxine 112 MCG Tab PO SCH (07:52)
[2021-09-09] MEDS: Levothyroxine 25 MCG Tab PO SCH (07:53)
[2021-09-09] MEDS: Clotrimazole 1% Crm 30 GM Tube TOP SCH ×2 (07:53→20:39)
[2021-09-09] MEDS: Cholecalciferol (Vitamin D3) 25 MCG Tab PO SCH (07:55)
[2021-09-09] MEDS: Multivitamin Tab PO SCH (07:56)
[2021-09-09] MEDS: Zinc (Zinc Gluconate) 50 MG Tab PO SCH (07:56)
[2021-09-09] MEDS: Divalproex Sodium 250 MG Tab.ER PO SCH (20:38)
[2021-09-09] MEDS: Acetaminophen 325 MG Tab PO PRN (21:51)
[2021-09-10] MEDS: Calcium Carbonate/Vitamin D3 1500 MG-400 Units Tab PO SCH ×2 (08:10→20:28)
[2021-09-10] MEDS: Aspirin 325 MG Tab.EC PO SCH ×2 (08:11→17:43)
[2021-09-10] MEDS: Levothyroxine 112 MCG Tab PO SCH (08:11)
[2021-09-10] MEDS: Zinc (Zinc Gluconate) 50 MG Tab PO SCH (08:12)
[2021-09-10] MEDS: Clotrimazole 1% Crm 30 GM Tube TOP SCH ×2 (08:12→20:31)
[2021-09-10] MEDS: Levothyroxine 25 MCG Tab PO SCH (08:12)
[2021-09-10] MEDS: Multivitamin Tab PO SCH (08:13)
[2021-09-10] MEDS: Cholecalciferol (Vitamin D3) 25 MCG Tab PO SCH (08:13)
[2021-09-10] MEDS: Divalproex Sodium 250 MG Tab.ER PO SCH (20:29)
[2021-09-10] MEDS: Acetaminophen 325 MG Tab PO PRN (20:32)
[2021-09-11] MEDS: Calcium Carbonate/Vitamin D3 1500 MG-400 Units Tab PO SCH ×2 (07:54→20:27)
[2021-09-11] MEDS: Aspirin 325 MG Tab.EC PO SCH ×2 (07:55→17:25)
[2021-09-11] MEDS: Levothyroxine 25 MCG Tab PO SCH (07:55)
[2021-09-11] MEDS: Clotrimazole 1% Crm 30 GM Tube TOP SCH ×2 (07:56→20:30)
[2021-09-11] MEDS: Levothyroxine 112 MCG Tab PO SCH (07:56)
[2021-09-11] MEDS: Zinc (Zinc Gluconate) 50 MG Tab PO SCH (07:57)
[2021-09-11] MEDS: Cholecalciferol (Vitamin D3) 25 MCG Tab PO SCH (07:58)
[2021-09-11] MEDS: Multivitamin Tab PO SCH (07:59)
[2021-09-11] MEDS: Acetaminophen 325 MG Tab PO PRN ×2 (12:49→20:33)
[2021-09-11] MEDS: Divalproex Sodium 250 MG Tab.ER PO SCH (20:28)
[2021-09-12] MEDS: Aspirin 325 MG Tab.EC PO SCH ×2 (07:55→17:23)
[2021-09-12] MEDS: Levothyroxine 25 MCG Tab PO SCH (07:55)
[2021-09-12] MEDS: Calcium Carbonate/Vitamin D3 1500 MG-400 Units Tab PO SCH ×2 (07:55→20:24)
[2021-09-12] MEDS: Clotrimazole 1% Crm 30 GM Tube TOP SCH (07:56)
[2021-09-12] MEDS: Levothyroxine 112 MCG Tab PO SCH (07:56)
[2021-09-12] MEDS: Multivitamin Tab PO SCH (07:56)
[2021-09-12] MEDS: Cholecalciferol (Vitamin D3) 25 MCG Tab PO SCH (07:57)
[2021-09-12] MEDS: Zinc (Zinc Gluconate) 50 MG Tab PO SCH (07:57)
[2021-09-12] MEDS: Divalproex Sodium 250 MG Tab.ER PO SCH (20:02)
[2021-09-12] MEDS: Acetaminophen 325 MG Tab PO PRN (22:09)
[2021-09-13] MEDS: Aspirin 325 MG Tab.EC PO SCH ×2 (07:53→17:21)
[2021-09-13] MEDS: Levothyroxine 25 MCG Tab PO SCH (07:53)
[2021-09-13] MEDS: Levothyroxine 112 MCG Tab PO SCH (07:54)
[2021-09-13] MEDS: Multivitamin Tab PO SCH (07:54)
[2021-09-13] MEDS: Zinc (Zinc Gluconate) 50 MG Tab PO SCH (07:54)
[2021-09-13] MEDS: Cholecalciferol (Vitamin D3) 25 MCG Tab PO SCH (07:54)
[2021-09-13] MEDS: Calcium Carbonate/Vitamin D3 1500 MG-400 Units Tab PO SCH ×2 (08:03→20:04)
[2021-09-13] MEDS: Divalproex Sodium 250 MG Tab.ER PO SCH (20:05)
[2021-09-13] MEDS: Acetaminophen 325 MG Tab PO PRN (22:05)
[2021-09-14] MEDS: Calcium Carbonate/Vitamin D3 1500 MG-400 Units Tab PO SCH ×2 (08:06→20:03)
[2021-09-14] MEDS: Levothyroxine 25 MCG Tab PO SCH (08:07)
[2021-09-14] MEDS: Levothyroxine 112 MCG Tab PO SCH (08:07)
[2021-09-14] MEDS: Aspirin 325 MG Tab.EC PO SCH ×2 (08:07→17:20)
[2021-09-14] MEDS: Cholecalciferol (Vitamin D3) 25 MCG Tab PO SCH (08:08)
[2021-09-14] MEDS: Multivitamin Tab PO SCH (08:08)
[2021-09-14] MEDS: Zinc (Zinc Gluconate) 50 MG Tab PO SCH (08:08)
[2021-09-14] MEDS: Acetaminophen 325 MG Tab PO PRN ×2 (11:43→21:28)
[2021-09-14] MEDS: Divalproex Sodium 250 MG Tab.ER PO SCH (20:04)
[2021-09-15] MEDS: Levothyroxine 25 MCG Tab PO SCH (08:30)
[2021-09-15] MEDS: Levothyroxine 112 MCG Tab PO SCH (08:31)
[2021-09-15] MEDS: Aspirin 325 MG Tab.EC PO SCH ×2 (08:32→17:45)
[2021-09-15] MEDS: Calcium Carbonate/Vitamin D3 1500 MG-400 Units Tab PO SCH ×2 (08:32→20:17)
[2021-09-15] MEDS: Multivitamin Tab PO SCH (08:33)
[2021-09-15] MEDS: Cholecalciferol (Vitamin D3) 25 MCG Tab PO SCH (08:33)
[2021-09-15] MEDS: Zinc (Zinc Gluconate) 50 MG Tab PO SCH (08:36)
[2021-09-15] MEDS: Divalproex Sodium 250 MG Tab.ER PO SCH (20:18)
[2021-09-15] MEDS: Acetaminophen 325 MG Tab PO PRN (21:36)
[2021-09-16] MEDS: Calcium Carbonate/Vitamin D3 1500 MG-400 Units Tab PO SCH ×2 (08:01→20:53)
[2021-09-16] MEDS: Aspirin 325 MG Tab.EC PO SCH (08:02)
[2021-09-16] MEDS: Levothyroxine 112 MCG Tab PO SCH (08:02)
[2021-09-16] MEDS: Levothyroxine 25 MCG Tab PO SCH (08:03)
[2021-09-16] MEDS: Cholecalciferol (Vitamin D3) 25 MCG Tab PO SCH (08:04)
[2021-09-16] MEDS: Multivitamin Tab PO SCH (08:04)
[2021-09-16] MEDS: Zinc (Zinc Gluconate) 50 MG Tab PO SCH (08:05)
[2021-09-16] MEDS: Divalproex Sodium 250 MG Tab.ER PO SCH (20:46)
[2021-09-16] MEDS: Acetaminophen 325 MG Tab PO PRN (22:15)
[2021-09-17] MEDS: Calcium Carbonate/Vitamin D3 1500 MG-400 Units Tab PO SCH ×2 (07:51→20:08)
[2021-09-17] MEDS: Levothyroxine 25 MCG Tab PO SCH (07:52)
[2021-09-17] MEDS: Levothyroxine 112 MCG Tab PO SCH (07:52)
[2021-09-17] MEDS: Cholecalciferol (Vitamin D3) 25 MCG Tab PO SCH (07:53)
[2021-09-17] MEDS: Multivitamin Tab PO SCH (07:53)
[2021-09-17] MEDS: Zinc (Zinc Gluconate) 50 MG Tab PO SCH (07:53)
[2021-09-17] MEDS: Divalproex Sodium 250 MG Tab.ER PO SCH (20:10)
[2021-09-17] MEDS: Acetaminophen 325 MG Tab PO PRN (21:39)
[2021-09-18] MEDS: Calcium Carbonate/Vitamin D3 1500 MG-400 Units Tab PO SCH ×2 (09:22→20:39)
[2021-09-18] MEDS: Levothyroxine 112 MCG Tab PO SCH (09:23)
[2021-09-18] MEDS: Levothyroxine 25 MCG Tab PO SCH (09:23)
[2021-09-18] MEDS: Multivitamin Tab PO SCH (09:24)
[2021-09-18] MEDS: Cholecalciferol (Vitamin D3) 25 MCG Tab PO SCH (09:25)
[2021-09-18] MEDS: Zinc (Zinc Gluconate) 50 MG Tab PO SCH (09:25)
[2021-09-18] MEDS: Divalproex Sodium 250 MG Tab.ER PO SCH (20:40)
[2021-09-18] MEDS: Acetaminophen 325 MG Tab PO PRN (22:06)
[2021-09-19] MEDS: Calcium Carbonate/Vitamin D3 1500 MG-400 Units Tab PO SCH ×2 (08:04→20:13)
[2021-09-19] MEDS: Levothyroxine 25 MCG Tab PO SCH (08:05)
[2021-09-19] MEDS: Levothyroxine 112 MCG Tab PO SCH (08:05)
[2021-09-19] MEDS: Cholecalciferol (Vitamin D3) 25 MCG Tab PO SCH (08:06)
[2021-09-19] MEDS: Multivitamin Tab PO SCH (08:06)
[2021-09-19] MEDS: Zinc (Zinc Gluconate) 50 MG Tab PO SCH (08:06)
[2021-09-19] MEDS: Divalproex Sodium 250 MG Tab.ER PO SCH (20:14)
[2021-09-19] MEDS: Acetaminophen 325 MG Tab PO PRN (21:25)
[2021-09-20] MEDS: Levothyroxine 25 MCG Tab PO SCH (07:33)
[2021-09-20] MEDS: Levothyroxine 112 MCG Tab PO SCH (07:33)
[2021-09-20] MEDS: Calcium Carbonate/Vitamin D3 1500 MG-400 Units Tab PO SCH ×2 (07:34→20:09)
[2021-09-20] MEDS: Cholecalciferol (Vitamin D3) 25 MCG Tab PO SCH (07:35)
[2021-09-20] MEDS: Multivitamin Tab PO SCH (07:35)
[2021-09-20] MEDS: Zinc (Zinc Gluconate) 50 MG Tab PO SCH (07:36)
[2021-09-20] MEDS: Divalproex Sodium 250 MG Tab.ER PO SCH (20:10)
[2021-09-20] MEDS: Acetaminophen 325 MG Tab PO PRN (21:42)
[2021-09-21] MEDS: Calcium Carbonate/Vitamin D3 1500 MG-400 Units Tab PO SCH ×2 (07:44→19:17)
[2021-09-21] MEDS: Levothyroxine 25 MCG Tab PO SCH (07:45)
[2021-09-21] MEDS: Levothyroxine 112 MCG Tab PO SCH (07:45)
[2021-09-21] MEDS: Cholecalciferol (Vitamin D3) 25 MCG Tab PO SCH (07:46)
[2021-09-21] MEDS: Multivitamin Tab PO SCH (07:46)
[2021-09-21] MEDS: Zinc (Zinc Gluconate) 50 MG Tab PO SCH (07:46)
[2021-09-21] MEDS: Divalproex Sodium 250 MG Tab.ER PO SCH (19:19)
[2021-09-21] MEDS: Acetaminophen 325 MG Tab PO PRN (21:28)
[2021-09-22] MEDS: Levothyroxine 25 MCG Tab PO SCH (07:55)
[2021-09-22] MEDS: Levothyroxine 112 MCG Tab PO SCH (07:55)
[2021-09-22] MEDS: Calcium Carbonate/Vitamin D3 1500 MG-400 Units Tab PO SCH ×2 (07:56→20:26)
[2021-09-22] MEDS: Zinc (Zinc Gluconate) 50 MG Tab PO SCH (07:56)
[2021-09-22] MEDS: Multivitamin Tab PO SCH (07:57)
[2021-09-22] MEDS: Cholecalciferol (Vitamin D3) 25 MCG Tab PO SCH (07:57)
[2021-09-22] MEDS: Divalproex Sodium 250 MG Tab.ER PO SCH (20:27)
[2021-09-22] MEDS: Acetaminophen 325 MG Tab PO PRN (21:45)
[2021-09-23] MEDS: Calcium Carbonate/Vitamin D3 1500 MG-400 Units Tab PO SCH ×2 (07:49→19:27)
[2021-09-23] MEDS: Levothyroxine 25 MCG Tab PO SCH (07:49)
[2021-09-23] MEDS: Multivitamin Tab PO SCH (07:50)
[2021-09-23] MEDS: Levothyroxine 112 MCG Tab PO SCH (07:50)
[2021-09-23] MEDS: Cholecalciferol (Vitamin D3) 25 MCG Tab PO SCH (07:51)
[2021-09-23] MEDS: Zinc (Zinc Gluconate) 50 MG Tab PO SCH (07:51)
[2021-09-23] MEDS: Divalproex Sodium 250 MG Tab.ER PO SCH (19:28)
[2021-09-23] MEDS: Acetaminophen 325 MG Tab PO PRN (21:38)
[2021-09-24] MEDS: Calcium Carbonate/Vitamin D3 1500 MG-400 Units Tab PO SCH ×2 (08:06→19:18)
[2021-09-24] MEDS: Levothyroxine 25 MCG Tab PO SCH (08:06)
[2021-09-24] MEDS: Levothyroxine 112 MCG Tab PO SCH (08:06)
[2021-09-24] MEDS: Multivitamin Tab PO SCH (08:07)
[2021-09-24] MEDS: Zinc (Zinc Gluconate) 50 MG Tab PO SCH (08:07)
[2021-09-24] MEDS: Cholecalciferol (Vitamin D3) 25 MCG Tab PO SCH (08:07)
[2021-09-24] MEDS: Divalproex Sodium 250 MG Tab.ER PO SCH (19:19)
[2021-09-24] MEDS: Acetaminophen 325 MG Tab PO PRN (21:16)
[2021-09-25] MEDS: Calcium Carbonate/Vitamin D3 1500 MG-400 Units Tab PO SCH ×2 (07:55→19:46)
[2021-09-25] MEDS: Levothyroxine 112 MCG Tab PO SCH (07:56)
[2021-09-25] MEDS: Cholecalciferol (Vitamin D3) 25 MCG Tab PO SCH (07:57)
[2021-09-25] MEDS: Levothyroxine 25 MCG Tab PO SCH (07:57)
[2021-09-25] MEDS: Multivitamin Tab PO SCH (07:57)
[2021-09-25] MEDS: Zinc (Zinc Gluconate) 50 MG Tab PO SCH (07:58)
[2021-09-25] MEDS: Divalproex Sodium 250 MG Tab.ER PO SCH (19:46)
[2021-09-25] MEDS: Acetaminophen 325 MG Tab PO PRN (21:40)
[2021-09-26] MEDS: Cholecalciferol (Vitamin D3) 25 MCG Tab PO SCH (08:00)
[2021-09-26] MEDS: Calcium Carbonate/Vitamin D3 1500 MG-400 Units Tab PO SCH ×2 (08:00→20:10)
[2021-09-26] MEDS: Zinc (Zinc Gluconate) 50 MG Tab PO SCH (08:00)
[2021-09-26] MEDS: Levothyroxine 112 MCG Tab PO SCH (08:01)
[2021-09-26] MEDS: Levothyroxine 25 MCG Tab PO SCH (08:01)
[2021-09-26] MEDS: Multivitamin Tab PO SCH (08:01)
[2021-09-26] MEDS: Acetaminophen 325 MG Tab PO PRN ×2 (11:09→21:34)
[2021-09-26] MEDS: Magnesium Hydroxide 400 MG/5 ML Susp 30 ML Cup PO PRN (13:15)
[2021-09-26] MEDS: Divalproex Sodium 250 MG Tab.ER PO SCH (20:12)
[2021-09-27] MEDS: Levothyroxine 25 MCG Tab PO SCH (07:31)
[2021-09-27] MEDS: Levothyroxine 112 MCG Tab PO SCH (07:32)
[2021-09-27] MEDS: Calcium Carbonate/Vitamin D3 1500 MG-400 Units Tab PO SCH ×2 (07:32→20:08)
[2021-09-27] MEDS: Cholecalciferol (Vitamin D3) 25 MCG Tab PO SCH (07:33)
[2021-09-27] MEDS: Multivitamin Tab PO SCH (07:33)
[2021-09-27] MEDS: Zinc (Zinc Gluconate) 50 MG Tab PO SCH (07:34)
[2021-09-27] MEDS: Divalproex Sodium 250 MG Tab.ER PO SCH (20:08)
[2021-09-27] MEDS: Acetaminophen 325 MG Tab PO PRN (20:19)
[2021-09-27] MEDS: Clotrimazole 1% Crm 30 GM Tube TOP PRN (20:44)
[2021-09-28] MEDS: Calcium Carbonate/Vitamin D3 1500 MG-400 Units Tab PO SCH ×2 (08:25→20:02)
[2021-09-28] MEDS: Multivitamin Tab PO SCH (08:26)
[2021-09-28] MEDS: Cholecalciferol (Vitamin D3) 25 MCG Tab PO SCH (08:26)
[2021-09-28] MEDS: Levothyroxine 25 MCG Tab PO SCH (08:26)
[2021-09-28] MEDS: Levothyroxine 112 MCG Tab PO SCH (08:26)
[2021-09-28] MEDS: Zinc (Zinc Gluconate) 50 MG Tab PO SCH (08:27)
[2021-09-28] MEDS: Clotrimazole 1% Crm 30 GM Tube TOP PRN ×2 (12:47→20:06)
[2021-09-28] MEDS: Divalproex Sodium 250 MG Tab.ER PO SCH (20:02)
[2021-09-28] MEDS: Acetaminophen 325 MG Tab PO PRN (21:05)
[2021-09-29] MEDS: Calcium Carbonate/Vitamin D3 1500 MG-400 Units Tab PO SCH ×2 (08:01→20:01)
[2021-09-29] MEDS: Levothyroxine 112 MCG Tab PO SCH (08:02)
[2021-09-29] MEDS: Levothyroxine 25 MCG Tab PO SCH (08:03)
[2021-09-29] MEDS: Cholecalciferol (Vitamin D3) 25 MCG Tab PO SCH (08:04)
[2021-09-29] MEDS: Multivitamin Tab PO SCH (08:04)
[2021-09-29] MEDS: Zinc (Zinc Gluconate) 50 MG Tab PO SCH (08:04)
[2021-09-29] MEDS: Divalproex Sodium 250 MG Tab.ER PO SCH (20:01)
[2021-09-29] MEDS: Acetaminophen 325 MG Tab PO PRN (20:03)
[2021-09-30] MEDS: Zinc (Zinc Gluconate) 50 MG Tab PO SCH (08:13)
[2021-09-30] MEDS: Multivitamin Tab PO SCH (08:14)
[2021-09-30] MEDS: Cholecalciferol (Vitamin D3) 25 MCG Tab PO SCH (08:14)
[2021-09-30] MEDS: Levothyroxine 112 MCG Tab PO SCH (08:15)
[2021-09-30] MEDS: Calcium Carbonate/Vitamin D3 1500 MG-400 Units Tab PO SCH (08:15)
[2021-09-30] MEDS: Levothyroxine 25 MCG Tab PO SCH (08:15)
--- NOTE | 2021-09-30 09:28 | PCM.DCSUM1 ---
Discharge Summary - Hospital Course Free Text/Narrative:: see below Brief History: Pt. was transferred to [facility] via wheel chair van for swingbed admission on 08/04/21. Pt. underwent ORIF of R bimalleolar fracture to R ankle. Pt. became lightheaded/near syncopal at home in [place], [place] and fell, injuring her ankle. Fracture was stabilized and she was transferred to [facility]. Pt. did have a CT scan of the head during her ER stay which was negative. All labs were within normal limits, but she was found to have a UTI. Initially pt. was started on IV rocephin in ER. She was transitions to Ceftin and then was on post op ancef. She finished her full course of antibiotics at the time of discharge. She was initially non-weight bearing on the R lower extremity. PT/OT were consulted with eventual progression to weight bearing as tolerated on RLE. on the morning of 09/30/21 she was thought to be medically stable for discharge home with her daughter and home health PT/OT/ and nurse aid. She will require follow up with ortho as previously scheduled with repeat XRAY of right ankle due on about Oct 25. She will also require follow up with her PCP to assist with coordination of care. Diagnosis: Stroke: No Modified Anthony Scale: Slight Disable;Unable to Carry Out Prev Act.Able to Look After Affairs Modified [place] Scale Score: 2 - Discharge Data Discharge Date: 09/30/21 Discharge Disposition: Home, Home Health Agency 06 Condition: Stable - Referral to Home Health Date of Face to Face Encounter: 09/30/21 Reason for Homebound Status: needs assistive device for mobility, requires frequent rest, requires assist of another person to leave the home Primary Care Physician: Bakari Calderon PA-C Skilled Need: requires assist of another person to leave home secondary to recent ankle fracture. requires frequent rest and has inability to ambulate distances - Discharge Diagnosis/Problem(s) (1) Bimalleolar avulsion fracture of right ankle SNOMED Code(s): 220319959, [id number], [id number] ICD Code: S82.841A - DISPLACED BIMALLEOLAR FRACTURE OF RIGHT LOWER LEG, INIT Status: Acute Current Visit: Yes - Patient Summary/Data Consults: Consultations 08/04/21 12:53 Consult to Case Management/Industrial Locomotive Operator [CONS] Routine Consult to Spiritual Care [CONS] Routine OT Evaluation and Treatment [CONS] Stat PT Evaluation and Treatment [CONS] Stat - Patient Instructions Diet: Usual Diet as Tolerated Activity, Other: weight bearing as tolerated Driving: Do Not Drive Showering/Bathing: May Shower Notify Provider of: Fever, Increased Pain, Swelling and Redness Other/Special Instructions: ok to start home health 10/03/21 - Discharge Plan *PRESCRIPTION DRUG MONITORING PROGRAM REVIEWED*: Not Applicable *COPY OF PRESCRIPTION DRUG MONITORING REPORT IN PATIENT ERROL: Not Applicable Home Medications: Home Meds Acetaminophen [Tylenol] 650 mg PO Q6HR 08/04/21 [History] Calcium Carb, Citrate/Vit D3 [Calcium + D3 ER Tablet] 1 each PO TID 08/04/21 [History] Calcium Citrate/Vitamin D3 [Calcium Citrate - Vit D Caplet] 1 each PO BID 08/04/21 [History] Cholecalciferol (Vitamin D3) [Vitamin D3] 1,000 unit PO DAILY 08/04/21 [History] Divalproex Sodium [Divalproex Sodium ER] 500 mg PO BEDTIME 08/04/21 [History] Levothyroxine Sodium 137 mcg PO ACBREAKFAST 08/04/21 [History] Multivit with Iron,Minerals [Complete Senior] 1 each PO DAILY 08/04/21 [History] Sennosides/Docusate Sodium [Senna-Docusate Sodium Tablet] 1 each PO DAILY PRN 08/04/21 [History] cloZAPine [Clozaril] 200 mg PO BEDTIME 08/04/21 [History] hydrOXYzine pamoate [Vistaril] 25 mg PO Q6HR PRN 08/04/21 [History] Oxygen Therapy Mode: Room Air - Discharge Summary/Plan Comment DC Time >30 min.: Yes Total # of Minutes for Discharge Time: 45 - General Info Date of Service: 09/30/21 Admission Dx/Problem (Free Text: Admission Diagnosis/Problem Admission Diagnosis/Problem Bimalleolar fracture of right ankle Subjective Update: feeling much better, ready to discharge home Functional Status: Reports: Pain Controlled - Review of Systems General: Reports: No Symptoms HEENT: Reports: No Symptoms Pulmonary: Reports: No Symptoms Cardiovascular: Reports: No Symptoms Gastrointestinal: Reports: No Symptoms Musculoskeletal: Reports: Joint Pain (right ankle) Skin: Reports: No Symptoms Neurological: Reports: No Symptoms Psychiatric: Reports: No Symptoms - Patient Data Vitals - Most Recent: Last Vital Signs Temp 97.4 F 09/30/21 08:00 Pulse 77 09/29/21 08:00 Resp 16 09/29/21 08:00 BP 125/77 09/27/21 08:00 Pulse Ox 98 09/29/21 08:00 Weight - Most Recent: 188 lb 12.8 oz I&O - Last 24 hours: Intake & Output 09/29/21 09/30/21 09/30/21 22:59 06:59 14:59 Intake Total 240 320 Balance 240 320 Med Orders - Current: Current Medications Acetaminophen (Acetaminophen 325 Mg Tab) 650 mg PO Q4H PRN PRN Reason: Pain Last Admin: 09/29/21 20:03 Dose: 650 mg Documented by: Bisacodyl (Bisacodyl 10 Mg Supp) 10 mg RECTAL DAILY PRN PRN Reason: Constipation Last Admin: 08/06/21 08:29 Dose: 10 mg Documented by: Calcium Carbonate (Calcium Carbonate/Vitamin D3 1500 Mg-400 Units Tab) 1 tab PO Q12HR [facility] Last Admin: 09/30/21 08:15 Dose: 1 tab Documented by: Calcium Carbonate/Glycine (Calcium Carbonate 500 Mg Tab.Chew) 500 mg PO Q2HR PRN PRN Reason: Nausea Cholecalciferol (Cholecalciferol (Vitamin D3) 25 Mcg Tab) 25 mcg PO DAILY [facility] Last Admin: 09/30/21 08:14 Dose: 25 mcg Documented by: Clotrimazole (Clotrimazole 1% Crm 30 Gm Tube) 0 gm TOP BID PRN PRN Reason: Rash Last Admin: 09/28/21 20:06 Dose: 1 applic Documented by: Divalproex Sodium (Divalproex Sodium 250 Mg Tab.Er) 500 mg PO BEDTIME [facility] Last Admin: 09/29/21 20:01 Dose: 500 mg Documented by: Hydroxyzine Pamoate (Hydroxyzine Pamoate 25 Mg Cap) 25 mg PO Q6HR PRN PRN Reason: Anxiety/Pain Levothyroxine Sodium (Levothyroxine 112 Mcg Tab) 112 mcg PO DAILY [facility] Last Admin: 09/30/21 08:15 Dose: 112 mcg Documented by: Levothyroxine Sodium (Levothyroxine 25 Mcg Tab) 25 mcg PO DAILY [facility] Last Admin: 09/30/21 08:15 Dose: 25 mcg Documented by: Magnesium Hydroxide (Magnesium Hydroxide 400 Mg/5 Ml Susp 30 Ml Cup) 30 ml PO DAILY PRN PRN Reason: Constipation Last Admin: 09/26/21 13:15 Dose: 30 ml Documented by: Multivitamins/Minerals/Vitamin C (Multivitamin Tab) 1 tab PO DAILY [facility] Last Admin: 09/30/21 08:14 Dose: 1 tab Documented by: Clozapine 100 Mg (Tablet) 200 mg PO BEDTIME [facility] Last Admin: 09/29/21 20:02 Dose: 200 mg Documented by: Ondansetron HCl (Ondansetron 4 Mg Tab.Dis) 4 mg PO Q6H PRN PRN Reason: Nausea/Vomiting Polyethylene Glycol (Polyethylene Glycol 3350 Powder 510 Gm Bot) 17 gm PO DAILY PRN PRN Reason: Constipation Last Admin: 09/04/21 08:00 Dose: 17 gm Documented by: Senna/Docusate Sodium (Docusate Sodium/Sennosides 50-8.6 Mg Tab) 1 tab PO DAILY PRN PRN Reason: Constipation Last Admin: 08/27/21 07:44 Dose: 1 tab Documented by: Senna/Docusate Sodium (Docusate Sodium/Sennosides 50-8.6 Mg Tab) 1 tab PO Q12HR [facility] Last Admin: 09/30/21 08:13 Dose: 1 tab Documented by: Zinc Gluconate (Zinc (Zinc Gluconate) 50 Mg Tab) 50 mg PO DAILY [facility] Last Admin: 09/30/21 08:13 Dose: 50 mg Documented by: Discontinued Medications Acetaminophen (Acetaminophen 325 Mg Tab) 650 mg PO Q6HR [facility] Acetaminophen (Acetaminophen 325 Mg Tab) 650 mg PO QID [facility] Last Admin: 08/05/21 07:54 Dose: 650 mg Documented by: Acetaminophen/Codeine Phosphate (Acetaminophen/Codeine 300-30 Mg Tab) 1 tab PO Q6H PRN PRN Reason: Pain Last Admin: 08/15/21 21:53 Dose: 1 tab Documented by: Aspirin (Aspirin 325 Mg Tab) 325 mg PO BID [facility] Last Admin: 08/25/21 17:37 Dose: 325 mg Documented by: Aspirin (Aspirin 325 Mg Tab.Ec) 325 mg PO BID [facility] Stop: 09/16/21 08:00 Last Admin: 09/16/21 08:02 Dose: 325 mg Documented by: Bisacodyl (Bisacodyl 5 Mg Tab) 5 mg PO DAILY PRN PRN Reason: Constipation Calcium Carbonate (Calcium Carbonate/Vitamin D3 1500 Mg-400 Units Tab) 1 tab PO BID [facility] Last Admin: 08/04/21 18:15 Dose: Not Given Documented by: Clotrimazole (Clotrimazole 1% Crm 30 Gm Tube) 1 gm TOP Q12HR [facility] Last Admin: 09/12/21 07:56 Dose: 1 applic Documented by: Enoxaparin Sodium (Enoxaparin 40 Mg/0.4 Ml Syringe) 40 mg SUBCUT BEDTIME [facility] Stop: 08/17/21 20:01 Last Admin: 08/17/21 19:46 Dose: 40 mg Documented by: Oxycodone HCl (Oxycodone 5 Mg Tab) 5 mg PO Q6HR PRN PRN Reason: Pain (severe 7-10) Last Admin: 08/05/21 08:34 Dose: 5 mg Documented by: Polyethylene Glycol (Polyethylene Glycol 3350 Powder 17 Gm Packet) 17 gm PO DAILY PRN PRN Reason: Constipation Last Admin: 08/28/21 07:51 Dose: 17 gm Documented by: - Exam Quality Assessment: Denies: Supplemental Oxygen, Urine Catheter, DVT Prophylaxis General: Reports: Alert, Oriented HEENT: Reports: EOMI Neck: Reports: Supple Lungs: Reports: Clear to Auscultation, Normal Respiratory Effort Cardiovascular: Reports: Regular Rate, Regular Rhythm GI/Abdominal Exam: Normal Bowel Sounds, Soft Extremities: Normal Inspection, Limited Range of Motion (right ankle) Skin: Reports: Warm, Dry Wound/Incisions: Reports: Healing Well Neurological: Reports: No New Focal Deficit Psy/Mental Status: Reports: Alert, Normal Affect, Normal Mood *Q Meaningful Use (DIS) - VTE *Q VTE Mechanical Contraindications *Q: Tx/Proc Refused byPt VTE Pharmacological Contraindications *Q: Tx/Proc Refused by Pt VTE Anticoagulation Contraindications: Tx/proc Refused by PT - Stroke *Q Stroke Criteria *Q: no stroke present. post op lovenox Aspirin Contraindications Stroke *Q: Patient Refusal Anticoagulation Contraindications Stroke *Q: TX/PROC Refused by PT Statin Contraindications Stroke *Q: TX/PROC Refused by PT Rehabilitation Assessment Contraindication *Q: Tx/proc refused by pt - AMI *Q Aspirin Contraindications AMI *Q: TX/PROC Refused by PT Statin Contraindications AMI *Q: TX/Proc Refused by PT
== END 2021-09-30 12:15 | disposition home health service (06) | DRG 560 ==
LOC: LL.MS 12:09 → LL.SWG 08-29 09:59
PROVIDERS: ADMIT Physician Assistant; ATTEND Physician Assistant
DX: S82.841D Displaced bimalleolar fracture of right lower leg, subsequent encounter for closed fracture with routine healing (principal); N17.9 Acute kidney failure, unspecified; F25.9 Schizoaffective disorder, unspecified; N18.30 Chronic kidney disease, stage 3 unspecified; Z79.899 Other long term (current) drug therapy
CPT/HCPCS: 36415; 73610-RT; 80053; 81001; 85025; 85610; 97110-GO; 97110-GP; 97129-GO; 97162-GP; 97165-GO; 97530-GO; 97530-GP; 97535-GO; A9270-GY; J1650